=== PATIENT | male | born 1940 | race Caucasian/White ===

== ENCOUNTER 2025-01-08 12:57 | Emergency (ER) | payer OTHER, SELFPAY ==
[2025-01-08 13:00] VITALS: BP 103/55
--- NOTE | 2025-01-08 13:33 | ED.GENMED ---
History of Present Illness
<Geovany Munguia MD, Resident - Last Filed: 01/08/25 15:43>
General
Chief Complaint: Male Genito-Urinary Symptoms
Source: patient
Exam Limitations: dementia
Time Seen by Provider: 01/08/25 13:02
History of Present Illness
History of Present Illness:
Patient is unable to tell us why he is here, so need to call [facility]. After calling [facility] they stated that he had a new 20 [place] Swift placed yesterday morning, Patient has been on Macrobid from onwards for UTI,
Swift was draining adequately, then today the nurse noticed that the penis and scrotum was edematous and wanted to make sure that it is a nonemergency so they admitted him to [place] emergency department . he is not complaining of any headache,
fever, chills, nausea, abdominal pain, vomiting, suprapubic pain, no pain/discomfort in the genital area. On visual inspection his Swift is draining adequately.
Past History
<Geovany Munguia MD, Resident - Last Filed: 01/08/25 15:43>
Past History
ED Past Medical History: None
Social History
Tobacco: Non-smoker
Alcohol: None
Drug: None
Personal: Single
Living: alone
Review of Systems
<Geovany Munguia MD, Resident - Last Filed: 01/08/25 15:43>
Review of Systems
All Other Systems: ROS reviewed and negative except as documented in HPI and ROS
Constitutional: Denies fatigue, sleep disturbance or night sweats
Respiratory: Denies cough
Cardiac: Denies chest pain, palpitations or syncope
Skin: Reports no symptoms
Phy Exam
<Geovany Munguia MD, Resident - Last Filed: 01/08/25 15:43>
General Physical Exam
General Presentation: mild distress
General Habitus: elderly
General Mental: alert
Cardiovascular Exam
Cardiovascular Exam: regular rate/rhythm, no edema, no gallop and normal peripheral pulses
Pulmonary Exam
Pulmonary Exam: lungs clear and no respiratory distress
Gastrointestinal Exam
Gastrointestinal Exam: normal bowel sounds, non tender, soft and non distended
Genitourinary Exam Male
Exam Male: other (there is diffuse edema of scrotum and penis, erythematous, Non - tender, no suprapubic fullness)
Neurological Exam
Neurological Exam: alert
Musculoskeletal Exam
Musculoskeletal Exam: full ROM and no edema
Skin Exam
Skin Exam: normal color and warm/dry
Psychiatric Exam
Psychiatric Exam: normal mood/affect
Course
<Geovany Munguia MD, Resident - Last Filed: 01/08/25 15:43>
Orders/Labs/Results
Orders:
Orders
01/08/25 13:33
Swift Placement- Treatment ONCE
Reason for insertion: Chronic Swift on Admit
Vital Signs
Initial and Last Documented VS:
Initial Vital Signs
Temp Pulse
98.6 F 73
01/08/25 12:59 01/08/25 12:59
Last Documented Vital Signs
Temp Pulse
98.6 F 73
01/08/25 12:59 01/08/25 12:59
<Andrew Bergman MD - Last Filed: 01/08/25 14:35>
Orders/Labs/Results
Orders:
Orders
01/08/25 13:33
Swift Placement- Treatment ONCE
Reason for insertion: Chronic Swift on Admit
Vital Signs
Initial and Last Documented VS:
Initial Vital Signs
Temp Pulse
98.6 F 73
01/08/25 12:59 01/08/25 12:59
Last Documented Vital Signs
Temp Pulse
98.6 F 73
01/08/25 12:59 01/08/25 12:59
<Geovany Munguia MD, Resident - Last Filed: 01/08/25 15:43>
MDM/Problems Addressed
Differential Diagnosis Includes:
Edema following insertion Swift catheter, Radames gangrene, balanitis, trauma, epididymitis
MDM/Problems Addressed:
84 y/o male who presents with edema of the scrotum and testicle following placement of a Swift. Presents from [facility].
- bladder scan shows 42 ml
- Will discharge patient back to [facility] with instructions on proper swift catheter placement. There is no tenderness to palpation, suprapubic fullness, infection, fever, chills.
<Geovany Munguia MD, Resident - Last Filed: 01/08/25 15:43>
*Pulse Oximetry
Patient hypoxic: no
*Critical Care Note
Total Time (30-74mins, 75-104mins- exclusive of procedures): Not Applicable
ED Attending Note
<Geovany Munguia MD, Resident - Last Filed: 01/08/25 15:43>
-
Portions of this chart may have been created with voice recognition software.� Occasional wrong word or��sound alike� substitutions may have occurred due to the inherent limitations of voice recognition software.
<Andrew Bergman MD - Last Filed: 01/08/25 14:35>
ED Attending Note
Patient seen and examined by attending physician: Yes
I performed a history and physical exam of patient and discussed management with resident, I reviewed resident's note and agree with documented findings and plan of care.: Yes
ED Attending Note:
Patient had his Swift catheter replaced yesterday. Apparently no complications. They noted swelling to the penis and scrotum today were concerned and wanted it evaluated. Patient denies acute complaints. No fever chills abdominal pain urethral
burning etc.
On exam patient is elderly and frail. Nontoxic. Fully alert interacting appropriately. Abdomen is soft and nontender. No suprapubic fullness. Swift catheter appears well and is draining well. There is general scrotal and penile edema. No
foreign body. No hair or constriction. No erythema drainage.
Penile and scrotal edema. Medically stable. No indication for radiologic testing or for further medical treatment. Outpatient observation.
Discharge Plan
Departure
Patient Disposition: Assisted/SNF
Date of Disposition: 01/08/25
Time of Disposition: 14:19
Patient with high blood pressure during this ER visit?: No
Condition: Fair
Discharge Problem:
Edema of scrotum, Edema of penis
Instructions: How to Care for Your Swift Catheter, Male, Urinary catheter placement
Referrals:
Jass Goodman MD [Family Provider] - Follow up in 5-7 days
Activity Restrictions/Additional Instructions:
Thank you for visiting the Emergency Department at [facility].
1. Please schedule a follow up appointment as directed. Call first thing tomorrow morning to make an appointment.
2. If indicated, please take your medications as instructed and indicated on discharge paperwork.
3. If any of your symptoms do not improve, or persist, or become more severe within 6-12 hours, please return to the emergency department for further care.
4. Please return to the emergency department if you develop a headache, neck pain/stiffness, fever greater than 100.4F, chest pain, shortness of breath, persistent nausea, vomiting, slurred speech, difficulty walking, numbness/tingling, weakness,
signs of infection or any other symptoms that are worrisome to you.
5. Please return is there in increased penile swelling, edema, fever, chills, suprapubic tenderness, nausea/vomiting.
Please call [phone] if you have any questions.
Interventions
Interventions:
*Risk Screen - Suicide Last Done: 01/08/25 12:59
*General Assessment Last Done: 01/08/25 12:59
*Neglect/Abuse Screening Last Done: 01/08/25 12:59
*ED COVID-19 Vaccine History Last Done: 01/08/25 12:59
*ED Influenza Vaccine History Last Done: 01/08/25 12:59
ED-Male Genitourinary Assessment Last Done: 01/08/25 15:21
Discharge Date and Time
Print Language: TUVALUAN
[2025-01-08 14:00] VITALS: BP 109/43
[2025-01-08 15:00] VITALS: BP 114/45
== END 2025-01-08 18:26 ==
LOC: EMR 12:57
PROVIDERS: EMERGENCY PHYSICIAN Emergency Medicine; FAMILY PHYSICIAN Internal Medicine
DX: N48.89 Other specified disorders of penis (principal); N50.89 Other specified disorders of the male genital organs; F03.90 Unspecified dementia, unspecified severity, without behavioral disturbance, psychotic disturbance, mood disturbance, and anxiety; Z96.0 Presence of urogenital implants
CPT/HCPCS: 99283

== ENCOUNTER 2025-01-09 07:44 | Emergency (ER) | payer OTHER, SELFPAY ==
[2025-01-09] VITALS (7 sets, daily range): BP systolic 110–137; BP diastolic 51–81; BMI 23.4
--- NOTE | 2025-01-09 10:13 | PTCARENOTE ---
Per Chrissie CHAUDHARY at [facility] ([id number]), pt arrived to them w/ chronic Gillette. Hx of bladder CA and obstructive uropathy. Gillette changed 01/07 d/t drainage issues. Gillette has been draining fine but sent back here today d/t increased edema of
penis and scrotum.
--- NOTE | 2025-01-09 10:41 | ED.GENMED ---
History of Present Illness
General
Chief Complaint: Male Genito-Urinary Symptoms
Source: patient, ambulance crew and assisted
Exam Limitations: none
Time Seen by Provider: 01/09/25 07:48
Nursing documentation reviewed up to this point in time: agreed with
History of Present Illness
History of Present Illness:
Patient with history of dysphagia and chronic indwelling Swift catheter, presents to ED for evaluation secondary to worsening penile and scrotal swelling, with intermittent blockage of Swift catheter, which has required Switf catheter exchange.
Patient was seen in ED for similar complaint yesterday and was discharged back to assisted with recommendation to follow-up with urology as an outpatient. However, assisted return patient to ED requesting urgent urology evaluation,
secondary to worsening swelling since being discharged. Patient otherwise upon arrival to ED, has no complaints.
Past History
Past History
ED Past Medical History: None
Social History
Tobacco: Non-smoker
Alcohol: None
Drug: None
Personal: Single
Living: alone
Review of Systems
Review of Systems
Allergies reviewed?: Yes
All Other Systems: ROS reviewed and negative except as documented in HPI and ROS
Constitutional: Reports no symptoms; Denies fever
ABD/GI: Reports no symptoms; Denies abdominal pain or vomiting
: Reports other (penile/scrotal swelling)
Musculoskeletal: Reports no symptoms
Skin: Reports no symptoms
Neurological: Reports no symptoms
Phy Exam
Physical Exam
Physical Exam:
Physical Exam
General: no apparent distress, not acutely ill. afebrile
Head: nc/at. eomi
Neck: supple. normal range of motion
Abdomen: normal bowel sounds. not tender.
: swift catheter in place, with associated penile/scrotal edema, without tenderness
Neuro: alert and oriented x 3. no focal neurological deficits
Skin: no rash
Psychiatric: well kept. interactive and cooperative
Extremities: no edema. no calf tenderness
Course
Orders/Labs/Results
Orders:
Orders
01/09/25 07:59
US Scrotum Urgent
Comment:
Reason For Exam: penile/scrotal swelling
01/09/25 11:22
Urinalysis Reflex To Culture Urgent
Date Specimen was Collected: 01/09/25
Time Specimen was Collected: 11:14
Urine Microscopic Reflex Cult Urgent
Urine Culture Urgent
SUSANNA Source: U
Specimen Description:
Date Specimen was Collected: 01/09/25
Time Specimen was Collected: 11:14
Abnormal Lab Results
01/09/25
11:22
Urine Ketones 2+ A
(Negative)
Ur Occult Blood Reflex 4+ A
(Negative)
Leukocyte Esterase Rfl 3+ A
(Negative)
Urine RBC >100 A /HPF
(0-2)
Urine WBC (Reflex) 40-50 A /HPF
(0-5)
Urine Bacteria (Reflex) Few A
(Negative)
Urine Albumin (Reflex) 3+ A
(Neg - Trace)
Vital Signs
Initial and Last Documented VS:
Initial Vital Signs
Temp Pulse Resp BP Pulse Ox
98 F 77 16 110/65 95
01/09/25 07:55 01/09/25 07:55 01/09/25 07:55 01/09/25 07:55 01/09/25 07:55
Last Documented Vital Signs
Temp Pulse Resp BP Pulse Ox
98.6 F 77 19 131/81 97
01/09/25 10:00 01/09/25 15:00 01/09/25 15:00 01/09/25 14:00 01/09/25 11:00
MDM/Problems Addressed
MDM/Problems Addressed:
Ultrasound report reviewed and discussed with on-call urology, Dr. Nagy. In light of patient's presenting symptoms, recommends exchanging his Swift catheter to nonlatex Swift catheter, along with outpatient urology follow-up, preferably with
urologist he has seen in the past with history of bladder cancer.
*Pulse Oximetry
SaO2: 95
Oxygen Mode of Delivery: Room air
Patient hypoxic: no
*Critical Care Note
Total Time (30-74mins, 75-104mins- exclusive of procedures): Not Applicable
ED Attending Note
-
Portions of this chart may have been created with voice recognition software.� Occasional wrong word or��sound alike� substitutions may have occurred due to the inherent limitations of voice recognition software.
Discharge Plan
Departure
Patient Disposition: Retirement/SNF
Date of Disposition: 01/09/25
Time of Disposition: 13:51
Discharge Problem:
Edema of scrotum
Instructions: Hydrocele, How to Care for Your Swift Catheter, Male
Prescriptions:
No Action
acetaminophen [Tylenol] 325 mg Tablet
650 mg PO Q6HPRN PRN (Reason: mild pain)
aspirin 325 mg Tablet
325 mg PO DAILY
phenytoin sodium extended 100 mg Capsule
300 mg PO DAILY
amlodipine [Norvasc] 5 mg Tablet
5 mg PO DAILY
magnesium hydroxide [Milk of Magnesia] 400 mg/5 mL Suspension
2,400 mg PO DAILYPRN PRN (Reason: if no bm by 3rd day)
tamsulosin [Flomax] 0.4 mg Capsule
0.4 mg PO HS
levothyroxine [Synthroid] 50 mcg Tablet
50 mcg PO DAILY
bisacodyl [Dulcolax (bisacodyl)] 10 mg Suppository
10 mg MD DAILYPRN PRN (Reason: if no bm aftr mom)
ferrous sulfate 325 mg (65 mg iron) Tablet
325 mg PO DAILY
nitrofurantoin macrocrystal 100 mg Capsule
100 mg PO BID
Rx Instructions:
for 7 days until 01/12/25
folic acid 1 mg Tablet
1 mg PO DAILY
Referrals:
Guillaume Nagy MD [Active, Urology]
Jass Goodman MD [Family Provider]
Activity Restrictions/Additional Instructions:
As discussed, please follow-up with referred urologist for further evaluation and treatment.
Interventions
Interventions:
*Risk Screen - Suicide Last Done: 01/09/25 07:55
*General Assessment Last Done: 01/09/25 07:55
*Neglect/Abuse Screening Last Done: 01/09/25 07:55
*ED- Fall Risk Assessment Last Done: 01/09/25 19:22
*ED COVID-19 Vaccine History Last Done: 01/09/25 19:22
*ED Influenza Vaccine History Last Done: 01/09/25 19:22
*Nursing Disposition Last Done: 01/09/25 19:28
ED-Male Genitourinary Assessment Last Done: 01/09/25 08:31
Discharge Date and Time
Discharge Date/Time: 01/09/25 19:31
Print Language: WELSH
[2025-01-09 12:15] LABS: Urine Character Clear (Clear)
[2025-01-09 13:09] LABS: Urine Red Blood Cell >100 /HPF (0-2)
[2025-01-09 13:11] LABS: Urine White Cell 40-50 /HPF (0-5)
[2025-01-09 13:14] LABS: Urine Squamous Cell 0-2 /LPF (Few)
== END 2025-01-09 19:31 ==
LOC: EMR 07:44
PROVIDERS: EMERGENCY PHYSICIAN Emergency Medicine; FAMILY PHYSICIAN Internal Medicine
DX: N50.89 Other specified disorders of the male genital organs (principal); Z85.51 Personal history of malignant neoplasm of bladder; Z96.0 Presence of urogenital implants
CPT/HCPCS: 99284; 76870; 81003; 81015; 87077; 87086; 93976

== ENCOUNTER 2025-01-11 14:52 | Inpatient (IN) | payer OTHER, SELFPAY ==
[2025-01-11] VITALS (21 sets, daily range): BP systolic 84–138; BP diastolic 48–70; BMI 24.1; BMI 23.6
--- NOTE | 2025-01-11 09:14 | ED.GENMED ---
History of Present Illness
General
Chief Complaint: Male Genito-Urinary Symptoms
Source: patient and ambulance crew
Exam Limitations: none
Time Seen by Provider: 01/11/25 09:11
Nursing documentation reviewed up to this point in time: agreed with
History of Present Illness
History of Present Illness:
Note:
CHIEF COMPLAINT(S)
Wound changes and scrotal swelling.
HISTORY OF PRESENT ILLNESS
An 84-year-old male presented with changes in a wound and scrotal swelling. The patient had previously been seen three days ago, and again the following day, with concerns initially noted for swelling and potential cellulitis, characterized by
redness in the area. Since the initial visit, there was no reported pain associated with the swelling.
PAST MEDICAL AND SURGICAL HISTORY
The patient has a history of kidney failure, hypertension, hypothyroidism, epilepsy, and hyperlipidemia. 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
CHRONIC MEDICAL CONDITIONS SIGNIFICANTLY AFFECTING CARE
- Hypertension
- Hypothyroidism
- Epilepsy
- Hyperlipidemia
- Kidney failure
MEDICATIONS
- Levothyroxine
- Tamsulosin
- Nitrofurantoin
- Aspirin
- Amlodipine
ALLERGIES
The patient reports no known allergies.
PHYSICAL EXAM
General: Alert, no acute distress.
Skin: Warm, dry.
Head: Normocephalic, atraumatic.
Neck: Supple, trachea midline.
Eye, Ears, Nose, Mouth, and Throat: Oral mucosa moist.
Cardiovascular: Normal peripheral perfusion, no edema.
Respiratory: Respirations are non-labored.
Gastrointestinal: Abdomen nondistended.
: gangrenous scrotum, groin erythema L>R
Back: Normal range of motion, normal alignment.
Musculoskeletal: Normal range of motion, normal strength.
Neurological: Alert and oriented to person, place, time, and situation, no focal neurological deficit observed.
Psychiatric: Cooperative, appropriate mood & affect.
PROBLEM LIST
- Scrotal swelling
- History of cellulitis in the affected area
- Hypertension
- Hypothyroidism
- Epilepsy
- Hyperlipidemia
- Kidney failure
DIFFERENTIAL DIAGNOSIS
The Differential Diagnosis includes, in no particular order and is not limited to:
- Cellulitis
- Scrotal edema
- Epididymitis
- Testicular torsion
- Inguinal hernia
- Hydrocele
- Varicocele
- Testicular tumor
- Lymphoceles
- Fourniers gangrene
EKG
My independent EKG interpretation is:
- Rhythm: Atrial fibrillation with a rapid ventricular response
- Heart rate: 125 bpm
- [place]: Left axis deviation
- Abnormalities: Presence of premature ventricular contractions (PVCs)
- No signs of ischemia
Disposition:
SUMMARY OF ENCOUNTER
An 84-year-old male presented with scrotal swelling and changes in a previous wound. 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 Immediate intervention was undertaken, including administration of intravenous fluids and antibiotics
(piperacillin-tazobactam, vancomycin, and clindamycin). Dr. Sarmiento, the urologist, escorted the patient to the operating room for surgical management.
DISPOSITION
Admit to operating room.
ASSESSMENT
The patient is diagnosed with Fourniers gangrene, as indicated by the severe scrotal swelling and clinical presentation consistent with the condition.
EMERGENCY TREATMENTS ADMINISTERED
Intravenous fluids, piperacillin-tazobactam, vancomycin, and clindamycin were administered.
MANAGEMENT OF THE PATIENTS CARE WAS DISCUSSED WITH
Dr. Sarmiento, urologist.
REASSESSMENT
Patients vital signs remained stable throughout the course in the emergency department.
INDEPENDENT REVIEW OF LABS AND INTERPRETATION OF TESTS
My independent EKG interpretation is an atrial fibrillation with a rapid ventricular response, heart rate of 125 bpm, left axis deviation, and the presence of premature ventricular contractions. No signs of ischemia are present.
MEDICAL DECISION MAKING
-Complexity of Data Reviewed: Chronic conditions affecting care include hypertension, hypothyroidism, epilepsy, hyperlipidemia, and kidney failure. Differential diagnoses considered were cellulitis, scrotal edema, epididymitis, testicular torsion,
inguinal hernia, hydrocele, varicocele, testicular tumor, lymphoceles, and Fourniers gangrene.
-Data:
Category 1
Non-emergency department records reviewed. The patients previous medical and surgical history was considered.
Category 2
My independent interpretation of EKG as stated.
Category 3
Discussion of management with Dr. March, urologist.
-Risk: Given the severe nature of Fourniers gangrene, prompt surgical intervention was necessary to address the risk of systemic complications.
DIAGNOSIS
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
Past History
Past History
ED Past Medical History: None
Social History
Tobacco: Non-smoker
Alcohol: None
Drug: None
Personal: Single
Living: alone
Phy Exam
Physical Exam
Physical Exam:
.
Course
Orders/Labs/Results
Orders:
Orders
01/11/25 09:20
IV Insert/Care/Rem.- Treatment PRN
01/11/25 09:42
Blood Culture Q30M
SUSANNA Source: Blood/Venous
Specimen Description:
01/11/25 09:43
Alcohol Urgent
Complete Blood Count/With Diff Urgent
Comprehensive Metabolic Panel Urgent
Lactic Acid Q4H
Comment: CANCEL 2nd LACTIC ACID IF 1st LACTIC ACID IS LESS THAN 2
01/11/25 09:45
Blood Culture Q30M
SUSANNA Source: Blood/Venous
Specimen Description:
01/11/25 09:54
Piperacillin/Tazo 4.5 Gram [Zosyn] 4.5 gram in 100 ml IV NOW
01/11/25 09:55
Urinalysis Reflex To Culture Urgent
Date Specimen was Collected: 01/11/25
Time Specimen was Collected: :54
Urine Microscopic Reflex Cult Urgent
Urine Culture Urgent
SUSANNA Source: U
Specimen Description:
Date Specimen was Collected: 01/11/25
Time Specimen was Collected: :54
01/11/25 10:07
CT Pelvis W/wo Iv Contrast Urgent
Comment: with AND without IV contrast
Reason For Exam: scrotal cellulitis, necrosis, concern for Radames
01/11/25 10:15
Clindamycin 900 mg/50 ml [Cleocin] 900 mg in 50 ml IV NOW
01/11/25 10:16
Vancomycin [Vancocin] 2,000 mg 0.9% Sodium Chloride 500 ml [Nss] 500 ml IV NOW
01/11/25 11:25
Lactated Ringers [Lr] 1,000 ml IV BOLUS
01/11/25 12:09
Admit/Transfer Patient As Directed
Co-Sign Provider:
Level of Care: Inpatient admission
Assign to:: IMU- Intermediate Care
Physician / Group: hospitalists
Diagnosis: Radames's gangrene
Reason for Hospitalization: Radames's gangrene
Expected length of stay greater than two midnights?: Yes
ELOS- Estimated Length of Stay in days: 3
I certify the patient meets the requirements for IP care: Yes
01/11/25 12:10
PRN Pain Medication Management As Directed
May give lesser potent ordered pain med per pt: Yes
preference::
Protocol:: Medication orders for pain may be administered in a
manner that supports deferring to patient preference
when the pt is:
- Requesting an ordered lesser potent pain medication.
Least to most potent pain medications are defined
as: acetaminophen < NSAID < tramadol < opioids
(morphine, oxycodone, hydromorphone).
- Requesting a lesser dose of the same medication IF
ORDERED.
- Requesting a less intrusive route of administration
if both routes are prescribed by the provider (PO <
IV).
01/11/25 12:29
Fentanyl Citrate/Pf [Sublimaze] 25 mcg IV [id number] PRN
Fentanyl Citrate/Pf [Sublimaze] 25 mcg IV [id number] PRN
Fentanyl Citrate/Pf [Sublimaze] 50 mcg IV PACU-Q5MPRN PRN
Ondansetron Injectable [Zofran] 4 mg IV PACU-ONCEPRN PRN
Prochlorperazine [Compazine] 5 mg IV PACU-ONCEPRN PRN
Notify MD As Directed
Notify physician if: for SDS patients with known or suspected sleep obstructive sleep apnea, monitor in the
PACU.
Notify MD for any apneic/desaturation episodes
O2 Therapy [RESP] Urgent
Titrate/Wean O2 to maintain O2 sat greater than (%): 92
Special Instructions: -Provide supplemental oxygen to achieve O2 sat of 92% or greater.
-After 15 min, may wean O2 and discontinue if patient is able to maintain O2 sat of 92%
or greater during recovery period.
If patient is a discharge home, without oxygen therapy, notify anestheiologist if
unable to maintain O2 SAT of 92% or greater on room air for MD clearance.
01/11/25 12:30
Lactated Ringers [Lr] 2,000 ml IV BOLUS
Normosol (Mult Electrolytes) [Normosol-R/Plasmalyte-A] 1,000 ml IV PER PROTOCOL
01/11/25 12:33
Code Status As Directed
Resuscitation Status: Full Code
01/11/25 12:34
Code Status As Directed
Resuscitation Status: Do not resuscitate
Based on pt advanced directive or healthcare POA form: Yes
01/11/25 12:49
Lidocaine HCl/Pf [Xylocaine-Mpf 1% Vial] 50 mg .ROUTE .STK-MED ONE
Propofol [Diprivan] 20 ml .ROUTE .STK-MED
Rocuronium [place] [Rocuronium] 50 mg .ROUTE .STK-MED ONE
01/11/25 12:50
Dexamethasone Sod Phosphate [Decadron] 20 mg .ROUTE .STK-MED ONE
Ondansetron Injectable [Zofran] 4 mg .ROUTE .STK-MED ONE
01/11/25 12:53
Fentanyl Citrate/Pf [Sublimaze] 100 mcg .ROUTE .STK-MED ONE
01/11/25 12:59
Bupivacaine Mpf 0.25% [Sensorcaine-Mpf 0.25% Vial] 30 ml .ROUTE .STK-MED ONE
Midazolam HCl [Versed] 2 mg .ROUTE .STK-MED ONE
01/11/25 13:02
Add On- LAB Routine
Tests Added?: a1c
01/11/25 13:36
Phenylephrine HCl/0.9% NaCl [Swapnil-Synephrine] 1,000 mcg .ROUTE .STK-MED ONE
01/11/25 14:03
Acetaminophen 1000MG/100Ml [Ofirmev] 1,000 mg in 100 ml .ROUTE .STK-MED
01/11/25 14:04
Anaerobic Culture Urgent
SUSANNA Source: Scrotum
Specimen Description:
Date Specimen was Collected: 01/11/25
Time Specimen was Collected: 14:04
Comment: PENILE ABSCESS
Wound/Abscess/Other Culture Urgent
SUSANNA Source: Scrotum
Specimen Description:
Date Specimen was Collected: 01/11/25
Time Specimen was Collected: 14:04
Comment: PENILE ABSCESS
01/11/25 14:38
Sugammadex Sodium [[place]] 200 mg .ROUTE .STK-MED ONE
01/11/25 15:07
Lactated Ringers [Lr] 1,000 ml IV 100 mls/hr
Pharmacy Request to Place See Dose Instructions IV DIRECTED
Piperacillin/Tazo 3.375 Gram [Zosyn] 3.375 gram in 50 ml IV Q6H
VANCOMYCIN Pharmacy to Dose [VANCOCIN Pharmacy to Dose] 1 each Pharmacy To Prepare [Call Pharmacy To Prepare] 0 ml IV PER PROTOCOL
01/11/25 15:07
INFECTIOUS DISEASE CONSULT Routine
Consulting Provider: Liz Bermudez
Was physician already notified: Yes
Reason for consult: Radames's gangrene
UROLOGY CONSULT Routine
Consulting Provider: Alberto March
Was physician already notified: Yes
Comment: Radmaes's gangrene
Sequential Compression Device [Pneumatic Compression Sleeves] As Directed
Type: Knee high
DX Deep Vein Thrombosis Video Routine
01/11/25 19:00
Clindamycin 900 mg/50 ml [Cleocin] 900 mg in 50 ml IV Q8H
01/11/25 22:00
Tamsulosin [Flomax] 0.4 mg PO HS
01/12/25 06:00
Levothyroxine [Synthroid] 50 mcg PO DAILY@0600
01/12/25 08:00
Amlodipine [Norvasc] 5 mg PO DAILY
Phenytoin [Dilantin] 300 mg PO DAILY
Abnormal Lab Results
01/11/25 01/11/25
09:43 09:55
WBC 28.2 H 10^3/uL
(4.8-10.8)
RBC 3.18 L 10^6/uL
(4.70-6.10)
Hgb 10.0 L g/dL
(13.0-18.0)
Hct 29.1 L %
(39.0-52.0)
MCH 31.4 H pg
(27.0-31.0)
RDW 14.9 H %
(11.5-14.5)
Plt Count 403 H 10^3/uL
(130-400)
MPV 10.5 H fL
(7.4-10.4)
Abs Immat Gran (auto) 0.5 H 10^3/uL
(0-0.05)
Absolute Neuts (auto) 25.7 H 10^3/uL
(1.4-6.5)
Absolute Monos (auto) 0.8 H 10^3/uL
(0.1-0.6)
Immature Gran % 1.7 H %
(0-0.5)
Neutrophils % 91.3 H %
(42.2-75.2)
Lymphocytes % 4.1 L %
(20.5-51.1)
BUN 64 H mg/dl
(9-20)
Glucose 182 H mg/dl
(70-99)
Lactic Acid 4.4 H* mmol/L
(0.7-2.0)
Total Bilirubin 1.6 H mg/dl
(0.2-1.3)
AST 204 H U/L
(17-59)
ALT 51 H U/L
(0-50)
Alkaline Phosphatase 262 H U/L
(38-126)
Albumin 3.3 L g/dl
(3.5-5.0)
Ur Occult Blood Reflex 4+ A
(Negative)
Leukocyte Esterase Rfl 3+ A
(Negative)
Urine RBC 3-6 A /HPF
(0-2)
Urine WBC (Reflex) >100 A /HPF
(0-5)
Urine Bacteria (Reflex) Moderate A
(Negative)
Urine Albumin (Reflex) 2+ A
(Neg - Trace)
01/11/25 09:43
01/11/25 09:43
Vital Signs
Initial and Last Documented VS:
Initial Vital Signs
Temp Pulse Resp BP Pulse Ox
98.3 F 74 16 127/67 95
01/11/25 09:10 01/11/25 09:10 01/11/25 09:10 01/11/25 09:10 01/11/25 09:10
Last Documented Vital Signs
Temp Pulse Resp BP Pulse Ox
97.5 F 64 17 119/49 100
01/11/25 15:45 01/11/25 16:00 01/11/25 16:00 01/11/25 16:00 01/11/25 16:00
*Pulse Oximetry
SaO2: 99
Oxygen Mode of Delivery: Room air
Patient hypoxic: no
*Critical Care Note
Total Time (30-74mins, 75-104mins- exclusive of procedures): 35
comment:
Critical care statement: A total of 35 minutes of critical care time was provided for this patient. This includes management of unstable vital signs, evaluation of the patient at bedside, reviewing the patient's pertinent medical records, discussion
with consultants, review of old EKGs and review of pertinent medical records. This time with separate from time utilized to perform the aforementioned documented procedures
ED Attending Note
-
Portions of this chart may have been created with voice recognition software.� Occasional wrong word or��sound alike� substitutions may have occurred due to the inherent limitations of voice recognition software.
Discharge Plan
Departure
Patient Disposition: OR
Date of Disposition: 01/11/25
Time of Disposition: 11:22
Admit to: OR
Presentation/result/management discussed w/ accepting MD/DO: Hospitalist
Patient with high blood pressure during this ER visit?: No
Condition: Fair
Discharge Problem:
Radames gangrene of scrotum
Interventions
Interventions:
*Risk Screen - Suicide Last Done: 01/11/25 09:10
*General Assessment Last Done: 01/11/25 09:10
*Neglect/Abuse Screening Last Done: 01/11/25 09:10
*ED- Fall Risk Assessment Last Done: 01/11/25 09:10
*Nursing Disposition Last Done: 01/11/25 12:20
ED-Male Genitourinary Assessment Last Done: 01/11/25 10:15
Discharge Date and Time
Discharge Date/Time: 01/11/25 12:24
[2025-01-11 10:05] LABS: ALT (SGPT) 51 U/L (0-50); AST (SGOT) 204 U/L (17-59); Albumin 3.3 g/dl (3.5-5.0); Alkaline Phosphatase 262 U/L (38-126); Blood Urea Nitrogen 64 mg/dl (9-20); Calcium 8.7 mg/dl (8.4-10.2); Carbon Dioxide 24 mmol/L (22-30); Chloride 106 mmol/L (98-107); Estimated Creatinine Clearance 43 ml/min; Glucose 182 mg/dl (70-99); Potassium 4.1 mmol/L (3.5-5.1); Sodium 142 mmol/L (135-145); Total Protein 7.7 g/dl (6.3-8.2); eGFR 58.89
[2025-01-11] MEDS: ZOSYN 100 IV (10:12)
[2025-01-11 10:16] LABS: Hematocrit 29.1 % (39.0-52.0); Hemoglobin 10.0 g/dL (13.0-18.0); Mean Corp Hgb Conc. 34.4 g/dL (33.0-37.0); Mean Corpuscular Volume 91.5 fL (80.0-94.0); Platelet Count 403 10^3/uL (130-400); Red Cell Dist. Width 14.9 % (11.5-14.5)
[2025-01-11] MEDS: CLEOCIN 50 IV ×2 (10:35→18:30)
[2025-01-11] MEDS: VANCOCIN 540 MG IV (10:35)
[2025-01-11 10:37] LABS: Urine Character Clear (Clear)
[2025-01-11 10:50] LABS: Urine Squamous Cell 0-2 /LPF (Few); Urine White Cell >100 /HPF (0-5)
[2025-01-11] MEDS: LR 1000 IV ×2 (11:32→18:30)
[2025-01-11 11:54] LABS: Nucleated Red Blood Cells % 0 % (-)
--- NOTE | 2025-01-11 12:12 | W.PN.UPDATE ---
Update Note
Progress Note Update
I personally performed a history and physical exam of the patient and discussed management with the resident. I reviewed the resident's note and agree with the documented findings and plan of care HPI/CC.
History is unobtainable from the patient because, when he is asked direct questions, he refuses to answer them. Also would not answer questions from Dr. Reynoso as per my discussion with Dr. Reynoso. Sent from [place] for necrosis of penis.
116/67, 81, 16, 98.3 F, 97% RA
Gen: NAD, Awake and alert
Eyes: EOMI, PERRLA, no scleral icterus.
Neck: supple.
CV: RRR, +S1/S2, no m/r/g.
Resp: CTAB, no rales, wheezes, or rhonchi.
Abd: +BS, soft, NT, ND
Skin/: necrosis on the ventral aspect of the penis, L groin soft tissue edema and erythema with TTP
Neuro: CN 2-12 intact, non-focal.
Psych: Normal mood and affect.
Lab Results
01/11/25 01/11/25
09:43 09:55
WBC 28.2 H
RBC 3.18 L
Hgb 10.0 L
Hct 29.1 L
MCV 91.5
MCH 31.4 H
MCHC 34.4
RDW 14.9 H
Plt Count 403 H
MPV 10.5 H
Abs Immat Gran (auto) 0.5 H
Absolute Neuts (auto) 25.7 H
Absolute Lymphs (auto) 1.2
Absolute Monos (auto) 0.8 H
Absolute Eos (auto) 0.0
Absolute Basos (auto) 0.1
CBC Comment
Immature Gran % 1.7 H
Neutrophils % 91.3 H
Lymphocytes % 4.1 L
Monocytes % 2.7
Eosinophils % 0.0
Basophils % 0.2
Nucleated RBC % 0
Sodium 142
Potassium 4.1
Chloride 106
Carbon Dioxide 24
BUN 64 H
Creatinine 1.2
Estimated Creat Clear 43
eGFR 58.89
Glucose 182 H
Lactic Acid 4.4 H*
Calcium 8.7
Total Bilirubin 1.6 H
AST 204 H
ALT 51 H
Alkaline Phosphatase 262 H
Total Protein 7.7
Albumin 3.3 L
Urine Color Yellow
Urine Clarity Clear
Urine pH 5.0
Ur Specific [place] 1.010
Urine Ketones Negative
Ur Occult Blood Reflex 4+ A
Urine Nitrite (Reflex) Negative
Urine Bilirubin Negative
Urine Urobilinogen 1+
Leukocyte Esterase Rfl 3+ A
Urine RBC 3-6 A
Urine WBC (Reflex) >100 A
Ur Squamous Epith Cells 0-2
Urine Bacteria (Reflex) Moderate A
Urine Glucose Negative
Urine Albumin (Reflex) 2+ A
CT Pelvis: Surrounding the penis and extending into the adjacent peritoneum, there is air and fluid density with thickened enhancing rim, suggesting infection and abscess formation. The air density also extends superiorly extending into the left
anterior pelvic wall musculature and adjacent subcutaneous soft tissues. These findings would be suggestive of Radames's gangrene. Filling defect within the left common femoral vein with extension into the left femoral and profunda femoris veins,
very likely representing deep venous thrombosis. As warranted, consideration for further evaluation with lower extremity peripheral venous ultrasound. Large amount of subcutaneous edema, left greater than right. Significant scrotal wall thickening
and edema, especially inferiorly. Small to moderate bilateral hydroceles.
Scrotal U/S: There are moderate bilateral hydroceles and marked swelling of the scrotal wall. The testicles themselves are unremarkable.
Sepsis due to necrotizing fasciitis:
-pt being taken to the OR for debridement emergently
-IV Vanco/Zosyn/clinda
-3L LR to start
-follow BCxs/UCx (pansensitive enterococcus on 01/09 UCx noted)
Other problems:
Seizure d/o: cont Dilantin
Hypothyroidism: cont Levoxyl
Essential HTN: hold Norvasc acutely
--- NOTE | 2025-01-11 12:35 | HPS.HSE ---
Family Physician
-
Family Physician: Jass Goodman
Chief Complaint
-
Swollen penis and scrotum with skin discoloration.
History of Present Illness
Mr. Sanchez is an 84-year-old male with PMHx significant for chronic indwelling [place] catheter (unknown cause), CKD (unknown stage), hypertension, hypothyroidism, epilepsy (unknown type seizure disorder) on phenytoin, hyperlipidemia presents to the
ER after being found to have swollen penis for 2 days and when nursing noticed to have necrotic 1.5 inch tissue on the scrotum in the a.m. today. Patient states that he is not in any pain, does not have any fevers or chills, and reports to being
thirsty.
Patient is awake alert and oriented, upon arrival to the ER the vital signs are stable, and in the ER he was found to have Radames's gangrene and was given IV LR. I was not able to obtain much history further from the patient.
Medical History
Past Medical History
Past Medical History: Reports Other (Kidney failure, hypertension, hypothyroidism, epilepsy, hyperlipidemia.)
Past Surgical History: Reports Other (Not known.)
Social History
Tobacco: Non-smoker
Alcohol: None
Drug: None
Personal: Single
Living: Assisted Living
Employment: Retired
Family History
Family History: Not pertinent
Allergies / Home Medications
Allergies reflects when Allergies were last updated in [facility].
Home Medications with original date entered in [facility]
Allergy/Medication List:
Allergies
Allergy/AdvReac Type Severity Reaction Status Date / Time
No Known Allergies Allergy Verified 01/11/25 09:54
Home Medications
acetaminophen 325 mg tablet (Tylenol) 650 mg PO Q6HPRN PRN mild pain 01/09/25
amlodipine 5 mg tablet (Norvasc) 5 mg PO DAILY 01/09/25
aspirin 325 mg tablet 325 mg PO DAILY 01/09/25
bisacodyl 10 mg rectal suppository (Dulcolax (bisacodyl)) 10 mg NV DAILYPRN PRN if no bm aftr mom 01/09/25
ferrous sulfate 325 mg (65 mg iron) tablet 325 mg PO DAILY 01/09/25
folic acid 1 mg tablet 1 mg PO DAILY 01/09/25
levothyroxine 50 mcg tablet (Synthroid) 50 mcg PO DAILY 01/09/25
magnesium hydroxide 400 mg/5 mL oral suspension (Milk of Magnesia) 2,400 mg PO DAILYPRN PRN if no bm by 3rd day 01/09/25
phenytoin sodium extended 100 mg capsule 300 mg PO DAILY 01/09/25
tamsulosin 0.4 mg capsule (Flomax) 0.4 mg PO HS 01/09/25
diphenhydramine HCl 25 mg capsule (Benadryl) 25 mg PO TID 01/11/25
nitrofurantoin monohydrate/macrocrystals 100 mg capsule (Macrobid) 100 mg PO BID 01/11/25
Review of Systems
-
History Source: Patient
Constitutional: Reports No Symptoms
EENT: Reports No Symptoms
Respiratory: Reports No Symptoms
Cardiac: Reports No Symptoms
Abdomen/GI: Reports No Symptoms
: Reports No Symptoms
Musculoskeletal: Reports No Symptoms
Skin: Reports No Symptoms
Endocrine: Reports No Symptoms
Hematologic/Lymphatic: Reports No Symptoms
Psych: Reports No Symptoms
Physical Exam
Vital Signs
Vital Signs
Temp Pulse Resp BP Pulse Ox
98.3 F 70 16 138/70 97
01/11/25 09:10 01/11/25 12:20 01/11/25 12:20 01/11/25 12:20 01/11/25 12:20
Physical Exam
General: Comfortable and Conversant
HEENT: NormoCephalic, Anicteric and PERRLA
Respiratory: Clear; No Wheezes, Rales, Rhonchi or Crackles
Cardiac: S1/S2 and Regular Rhythm; No Murmur, Rub or Gallop
GI: Soft, Non Tender, Non Distended and Normal Bowel Sounds
Genito-urinary: [place] and Other (Erythematous, edematous scrotum and penis with erythema and edema extending into the left groin area. About 2. 5 x 1 cm necrotic tissue with irregular margins noted on the scrotum, nontender to palpation,
subcutaneous crepitus.)
Musculoskeletal: No Clubbing, No Cyanosis and No Edema
Skin: Ulcers and Lesions
Neuro: AO x 3 and No Motor Deficits
Psych: Calm
Laboratory Results
-
01/11/25 09:43
01/11/25 09:43
Laboratory Results
Lactic Acid 4.4 mmol/L (0.7-2.0) H* 01/11/25 09:43
Total Bilirubin 1.6 mg/dl (0.2-1.3) H 01/11/25 09:43
AST 204 U/L (17-59) H 01/11/25 09:43
ALT 51 U/L (0-50) H 01/11/25:43
Alkaline Phosphatase 262 U/L (38-126) H 01/11/25 09:43
Data Reviewed
-
Ultrasound: Image Personally Visualized and interpreted, Report Reviewed by me and Discussed with Patient
Medical Tests (Nuc Med, Echo, EKG etc): Report Reviewed by me, Discussed with Physician and Discussed with Patient
Lab Data: Labs Reviewed by me, Discussed with Physician and Discussed with Patient
Impression/Plan
-
IMPRESSION: 84-year-old male with PMHx significant for chronic indwelling [place] catheter (unknown cause), CKD (unknown stage), hypertension, hypothyroidism, epilepsy (unknown type seizure disorder) on phenytoin, hyperlipidemia presents to the ER
from long-term facility for evaluation of possible foreign years gangrene.
PLAN:
# Radames's gangrene/necrotizing fasciitis of the scrotum-
Leukocytosis with left shift, no tachycardia, no tachypnea.
Lactate levels pending. Vital signs stable, s/p IV lactated Ringer bolus
Urology consulted, on board, plan for wound debridement.
N.p.o. for now, started on vancomycin, Zosyn and clindamycin.
ID consult placed, admit the patient to IMU.
Continue aggressive hydration, follow debridement cultures
Trend WBC count
# Normocytic anemia-
Likely a confluence of anemia of chronic disease versus microcytic anemia from phenytoin use.
On iron and folic acid supplementation.
Continue to monitor CBC levels.
# Thrombocytosis-
Likely reactive.
# CKD stage IIIa-
eGFR stable at 58.89.
# Elevated blood glucose levels, glucosuria-
Obtain HbA1c in the AM.
# Transaminitis-
Suspect likely secondary to Radames's gangrene.
Unknown baseline, trend AST and ALT.
# Seizure disorder-continue phenytoin
# Essential hypertension-
Continue amlodipine
# Hypothyroidism-
Continue Synthyroid
# DVT prophylaxis-
Sequential compression devices
# CODE STATUS-DNR
(Per SNF records -advance directive, tried reaching out to [facility], and also son, left voicemails with no answer back.) Will clarify later with patient and family as well.
--- NOTE | 2025-01-11 12:48 | CON.ID ---
Consultation
-
Date/Time Consultation Requested: 01/11/25 12:23
Date/Time Consultation Performed: 01/11/25 12:49
Requesting Provider: Dr Groves
Performing Provider: Dr Bermudez
Reason for Consultation: blaise's gangrene
Chief Complaint / Past History
Chief Complaint
necrotic tissue of the scrotum
History of Present Illness
Mr Reed is an 84 year old male without known medical history who presented here from a alf for a black lesion on the penis and scrotum with tracking erythema. History is unobtainable the patient refuses to answer questions - states
that he blames his son for his placement in alf. He does admit to a history of a seizure to me. Otherwise he is not responsive to questions.
Since arrival here he has been afebrile, bp stable, wbc 28.2, hgb 10, plt 403, L shift is noted, co2 24, cr 1.2, lactic acid 4.4,t bili 1.6, ast 204, alt 51, alk [phos 262, pelvis CT scan: consistent with blaise's ' Surrounding the penis and
extending into the adjacent peritoneum, there is air and fluid density with thickened enhancing rim, suggesting infection and abscess formation. The air density also extends superiorly extending into the left anterior pelvic wall musculature and
adjacent subcutaneous soft tissues.' US 'marked swelling of the scrotal wall.' He is on vancomycin, zosyn and clindamycin.
Past History
Additional Past Medical History:
HTN, hypothyroidism, seizure
Additional Past Surgical History:
no known history
Allergy History:
No Known Allergies Allergy (Verified 01/11/25 09:54)
Medications Reviewed: Yes
Social History
Tobacco: Non-Smoker
Alcohol: None
Drug: None
Family History
Family History: Not Pertinent
Review of Systems
Review of Systems
unable to obtain due to the condition of the patient
Vital Signs
Temp Pulse Resp BP Pulse Ox
98.3 F 70 16 138/70 97
01/11/25 09:10 01/11/25 12:20 01/11/25 12:20 01/11/25 12:20 01/11/25 12:20
Physical Exam
Physical Exam
Constitutional: No Acute Distress
Cardiovascular: Regular Rate and S1/S2; Negative Murmur or Rub
Pulmonary: Clear and Symmetric; Negative Wheezes, Rales or Rhonchi
Gastrointestinal: Soft, Non Tender, Non Distended and Normal Bowel Sounds
Genito-Urinary: Other (necrotic area on the penis and scrotum, tracking erythmea to the L groin)
Skin: Warm and Dry; Negative Rash or Jaundice
Lab / Diagnostic Study Results
01/11/25 09:43
01/11/25 09:43
Abs Immat Gran (auto) 0.5 10^3/uL (0-0.05) H 01/11/25 09:43
Absolute Neuts (auto) 25.7 10^3/uL (1.4-6.5) H 01/11/25 09:43
Absolute Lymphs (auto) 1.2 10^3/uL (1.2-3.4) 01/11/25 09:43
Absolute Monos (auto) 0.8 10^3/uL (0.1-0.6) H 01/11/25 09:43
Absolute Basos (auto) 0.1 10^3/uL (0-0.2) 01/11/25 09:43
Immature Gran % 1.7 % (0-0.5) H 01/11/25 09:43
Neutrophils % 91.3 % (42.2-75.2) H 01/11/25 09:43
Lymphocytes % 4.1 % (20.5-51.1) L 01/11/25 09:43
Monocytes % 2.7 % (1.7-9.3) 01/11/25 09:43
Eosinophils % 0.0 % (0-6) 01/11/25 09:43
Basophils % 0.2 % (0-2) 01/11/25 09:43
Lactic Acid 4.4 mmol/L (0.7-2.0) H* 01/11/25 09:43
Ur Squamous Epith Cells 0-2 /LPF (Few) 01/11/25 09:55
Microbiology Results
Micro:
01/11/25 09:42 Blood Culture - Pending
Blood/Venous
01/11/25 09:55 Urine Culture - Pending
Urine
01/11/25 09:45 Blood Culture - Pending
Blood/Venous
Assessment / Plan
Fourniers gangrene
- going emergently to the OR
- start vancomycin, zosyn clindamycin
- follow up OR cultures
- check a1c
- follow clinically
--- NOTE | 2025-01-11 12:51 | CONS.URO ---
Medical History
History of Present Illness
84M admitted with scrotal pain and swelling worsening over the past 1-2 weeks
On prior evals and US there was no evidence of cellulitis and pain per ED reports, though apparent today that there was infection
CT scan showed gas forming infectious process with penile skin necrosis
Past Medical History
Past Medical History: None
Past Surgical History: None
Family History
Family History: Reviewed & Not Pertinent
Allergies/Home Medications
Allergies
Allergy/AdvReac Type Severity Reaction Status Date / Time
No Known Allergies Allergy Verified 01/11/25 09:54
Home Medications
�Medication �Instructions �Recorded �Confirmed �Type
acetaminophen 325 mg tablet 650 mg PO Q6HPRN PRN mild pain 01/09/25 01/11/25 History
(Tylenol)
amlodipine 5 mg tablet (Norvasc) 5 mg PO DAILY 01/09/25 01/11/25 History
aspirin 325 mg tablet 325 mg PO DAILY 01/09/25 01/11/25 History
bisacodyl 10 mg rectal suppository 10 mg VA DAILYPRN PRN if no bm 01/09/25 01/11/25 History
(Dulcolax (bisacodyl)) aftr mom
ferrous sulfate 325 mg (65 mg 325 mg PO DAILY 01/09/25 01/11/25 History
iron) tablet
folic acid 1 mg tablet 1 mg PO DAILY 01/09/25 01/11/25 History
levothyroxine 50 mcg tablet 50 mcg PO DAILY 01/09/25 01/11/25 History
(Synthroid)
magnesium hydroxide 400 mg/5 mL 2,400 mg PO DAILYPRN PRN if no bm 01/09/25 01/11/25 History
oral suspension (Milk of Magnesia) by 3rd day
phenytoin sodium extended 100 mg 300 mg PO DAILY 01/09/25 01/11/25 History
capsule
tamsulosin 0.4 mg capsule (Flomax) 0.4 mg PO HS 01/09/25 01/11/25 History
diphenhydramine HCl 25 mg capsule 25 mg PO TID 01/11/25 01/11/25 History
(Benadryl)
nitrofurantoin 100 mg PO BID 01/11/25 01/11/25 History
monohydrate/macrocrystals 100 mg
capsule (Macrobid)
Physical Exam
Vital Signs
Vital Signs
Temp Pulse Resp BP Pulse Ox
98.3 F 70 16 138/70 97
01/11/25 09:10 01/11/25 12:20 01/11/25 12:20 01/11/25 12:20 01/11/25 12:20
Lab / Testing Results
Laboratory Results
01/11/25 09:43
01/11/25 09:43
Physical Exam
General: Well Developed and No Apparent Distress
Respiratory: Non Labored Respirations
GI: Soft and Non Tender
Genito-urinary: Other (Exquisitely tender and indurated penis and scrotum, LLQ skin with erythema. No drainage)
Neuro: AO x 3
Psych: Calm, Confused and Apparent Dementia
Assessment / Plan
-
Radames's gangrene
- Severe necrotizing infection of penis, scrotum, pubic fat pad, extending to LLQ anterior pelvic wall
- Recommend OR for scrotal exploration, debridement of necrotic tissue, abscess drainage, drain placement
- Unable to reach patient's son after multiple attempts
- Had a long discussion with patient regarding the procedure. Discussed He expressed some desire to avoid surgery and even stated he would prefer to peacefully rather than undergo procedure and its associated . Though he is oriented x3 and
reasoning sometimes sound, he was not able to repeat back multiple aspects of the proposed procedure and forgot entirely after 5 minute transfer upstairs. He was not able to consistently grasp that by delaying or refusing surgery he would likely
. For these reasons he does not have capacity to refuse surgery and will proceed as planned under emergency consent
- Unfortunately overall prognosis for healing and recovery given age and baseline health is poor
- Consult wound care
- Possible return to OR in 24-48 hours for repeat exploration
- ICU/IMU level care
- Continue abx per ID
[2025-01-11] MEDS: SUBLIMAZE 25 MCG IV (15:26)
--- NOTE | 2025-01-11 16:11 | PHA.VAN.IN ---
Assessment
- Assessment
Renal Function: Unknown baseline
Concomitant Antimicrobials: piperacillin/tazobactam, clindamycin
AUC Dosing Plan
- Dosing Variables
Dosing Weight (kg): 72
Dosing CrCl (ml/min): 43
Vd coefficient (L/kg): 0.7
- Empiric Dosing
Initial / Loading Dose: vanc 2000mg
Maintenance Regimen: vanc 1000mg Q24H
Estimated AUC (mcg*h/mL): 505
Estimated Peak (mcg*h/mL): 32.1
Estimated Trough (mcg/ml): 12.8
Estimated Half Life (H): 17.3
- Monitoring
No levels ordered at this time: consider levels at steady state
Pharmacokinetics Vancomycin I
- -
Patient Age: 84
Patient Sex: Male
Vancomycin Day #: 1
Indication: Skin And Soft Tissue
Requesting Provider: Dr. Bermudez
Pertinent Antimicrobial Allergies:
no pertinent antimicrobial allergies
Height / Weight:
Height 5 ft 8 in
Actual Weight 72 kg
- Vital Signs / Lab Results
Temp Pulse Resp BP Pulse Ox
97.5 F 64 17 119/49 100
01/11/25 15:45 01/11/25 16:00 01/11/25 16:00 01/11/25 16:00 01/11/25 16:00
Lab Results - Hematology
01/11/25
09:43
WBC 28.2 H
Lab Results - Chemistry
01/11/25
09:43
BUN 64 H
Creatinine 1.2
Estimated Creat Clear 43
Albumin 3.3 L
01/11/25 01/11/25
09:43 09:43
Lactic Acid 4.4 H* Cancelled
Lab Results - Urine
01/11/25
09:55
Urine Nitrite (Reflex) Negative
Leukocyte Esterase Rfl 3+ A
Urine WBC (Reflex) >100 A
Ur Squamous Epith Cells 0-2
Urine Bacteria (Reflex) Moderate A
[2025-01-11] MEDS: ZOSYN 50 IV ×2 (16:32→22:13)
[2025-01-11] MEDS: LR 2000 IV (16:32)
--- NOTE | 2025-01-11 16:34 | W.IMMPOSTOP ---
Surgical Immed Post Op Note
-
Primary Surgeon: Anca
Assisting Surgeon: -
Pre-op Diagnosis: Radames's gangrene
Post-op Diagnosis: same
Procedure Performed: Scrotal exploration, debridement of Radames's gangrene necrotizing fasciitis, wound packing
Anesthesia Type: gen
Specimen / Cultures: wound cultures
Estimated Blood Loss:
Complications:
Operative Findings:
Large volume purulent drainage
Wound cultures were obtained but were unfortunately mislabeled on their way to the lab and lab refused to run them per OR nurse
Plan for return to OR in AM for repeat wound exploration
[2025-01-11] MEDS: FLOMAX PO (20:39)
[2025-01-11] MEDS: TYLENOL 1000 MG PO (23:18)
[2025-01-12] VITALS (57 sets, daily range): BP systolic 68–125; BP diastolic 36–74; BMI 25.9
[2025-01-12] MEDS: CLEOCIN 50 IV ×3 (02:15→18:39)
[2025-01-12] MEDS: ZOSYN 50 IV ×4 (03:50→20:34)
[2025-01-12 04:26] LABS: Hematocrit 16.3 % (39.0-52.0); Hemoglobin 5.3 g/dL (13.0-18.0); Mean Corp Hgb Conc. 32.5 g/dL (33.0-37.0); Mean Corpuscular Volume 95.9 fL (80.0-94.0); Platelet Count 162 10^3/uL (130-400); Red Cell Dist. Width 16.1 % (11.5-14.5)
[2025-01-12] MEDS: LR 1000 IV ×2 (04:49→16:14)
[2025-01-12 04:53] LABS: Blood Urea Nitrogen 45 mg/dl (9-20); Calcium 5.2 mg/dl (8.4-10.2); Carbon Dioxide 17 mmol/L (22-30); Chloride 86 mmol/L (98-107); Estimated Creatinine Clearance 64 ml/min; Glucose 576 mg/dl (70-99); Potassium 2.9 mmol/L (3.5-5.1); Sodium 131 mmol/L (135-145); eGFR > 60.00
[2025-01-12 05:06] LABS: Glucose - Point of Care 184 mg/dl (70-99)
--- NOTE | 2025-01-12 05:06 | PTCARENOTE ---
patient told me 'he wants to peacefully'. Patient kept telling this RN he wants to and wants this suffering to end. Patient was able to answer his name and birthday, he was not aware of where he was. Provided emotionally support to patient.
Assessment and vital signs as charted. call gupta in reach.
[2025-01-12] MEDS: SYNTHROID 50 MCG PO (05:15)
[2025-01-12] MEDS: VANCOCIN 200 IV (05:15)
[2025-01-12 05:41] LABS: Blood Urea Nitrogen 60 mg/dl (9-20); Calcium 7.5 mg/dl (8.4-10.2); Carbon Dioxide 25 mmol/L (22-30); Chloride 105 mmol/L (98-107); Estimated Creatinine Clearance 47 ml/min; Glucose 148 mg/dl (70-99); Potassium 3.7 mmol/L (3.5-5.1); Sodium 136 mmol/L (135-145); eGFR > 60.00
[2025-01-12 05:45] LABS: Hematocrit 22.7 % (39.0-52.0); Hemoglobin 7.5 g/dL (13.0-18.0)
[2025-01-12 06:02] LABS: Mean Corp Hgb Conc. 32.6 g/dL (33.0-37.0); Mean Corpuscular Volume 93.4 fL (80.0-94.0); Platelet Count 264 10^3/uL (130-400); Red Cell Dist. Width 15.3 % (11.5-14.5)
--- NOTE | 2025-01-12 08:03 | PHA.VAN.FU ---
Vancomycin Assessment / Plan
- Assessment
Renal Function: Stable
WBC's are: Trending Up
In the past 24 hrs, patient has been: Afebrile
Concomitant Antimicrobials: CLINDAMYCIN, ZOSYN
- Dosing Plan
Continue: 1000MG Q24H
- Monitoring Plan
Peak Level: 01/15 @2100
Trough Level: 01/16 @0530
- Follow Up
Pharmacy will continue to follow.
Vancomycin Follow UP
- -
Patient Age: 84
Patient Sex: Male
Vancomycin Day #: 2
Indication: Skin And Soft Tissue
Requesting Provider: Dr. Bermudez
Pertinent Antimicrobial Allergies:
no pertinent antimicrobial allergies
Height / Weight:
Height 5 ft 8 in
Actual Weight 77.1 kg
- Vital Signs / Lab Results
Temp Pulse Resp BP Pulse Ox
97.4 F 61 14 124/46 100
01/11/25 23:00 01/12/25 06:09 01/12/25 06:09 01/12/25 06:09 01/12/25 06:06
Lab Results - Hematology
01/11/25 01/12/25 01/12/25
09:43 04:03 04:51
WBC 28.2 H 19.3 H 29.0 H
Lab Results - Chemistry
01/11/25 01/12/25 01/12/25
09:43 04:03 05:01
BUN 64 H 45 H 60 H
Creatinine 1.2 0.8 1.1
Estimated Creat Clear 43 64 47
Albumin 3.3 L
01/11/25 01/11/25 01/11/25
09:43 09:43 17:40
Lactic Acid 4.4 H* Cancelled 1.7
Lab Results - Urine
01/11/25
09:55
Urine Nitrite (Reflex) Negative
Leukocyte Esterase Rfl 3+ A
Ur Squamous Epith Cells 0-2
--- NOTE | 2025-01-12 10:00 | PTCARENOTE ---
Patient off unit to OR.
--- NOTE | 2025-01-12 11:29 | W.PN.URO.CBU ---
Addendum entered and electronically signed by Alberto March MD 01/12/25 11:47:
Wound cultures from OR yesterday were obtained but due to incorrect labeling the lab would not process them
Repeat wound cultures sent today from purulent drainage in OR
Original Note:
Today's Communication / Plan
-
Maintain dressings/maurilio drain
Continue abx
Possible return to OR in 2-3 days
Assessment / Plan
-
Radames's gangrene
- Severe necrotizing infection of penis, scrotum, pubic fat pad, extending to LLQ anterior pelvic wall
01/11/25: I&D, debridement, drainage of abscess
01/12/25: wound exploration, washout, debridement, dressing change, closure of tunica vaginalis
- Patient consistently expressed desire palliative care and with dignity and refused return to OR today, however he continues to lack capacity to refuse emergency care. Unable to reach patient's son after multiple attempts yesterday and today
- Unfortunately overall prognosis for healing and recovery given age and baseline health is poor and hospice would be an appropriate course
- Consult wound care for eventual management of wound packing changes
- Possible return to OR in 48-72 hours for repeat exploration
- ICU/IMU level care
- Continue abx per ID
Diagnosis
-
Date of Service: January 12, 2025
-
Patient Diagnosis:
Radames's gangrene
Post Op Day:
01/11/25: I&D, debridement, drainage of abscess
01/12/25: wound exploration, washout, debridement, dressing change, closure of tunica vaginalis
Subjective
-
-
Objective
-
Vital Signs
Temp Pulse Resp BP Pulse Ox
97.1 F 55 19 107/45 100
01/12/25 07:17 01/12/25 09:30 01/12/25 09:30 01/12/25 08:00 01/12/25 09:45
Intake and Output
01/11/25 01/12/25 01/13/25
06:59 06:59 06:59
Intake Total 1400 / 1400
Output Total 400 / 400
Balance 1375 / 1375 -400 / -400
Intake:
IV fluids (Total) 1400 / 1400
Normosol 400 / 400
Output:
Urine, [place] 400 / 400
Laboratory Results
01/12/25 04:51
01/12/25 05:01
Physical Exam
-
per OP note
[2025-01-12 12:51] LABS: ALT (SGPT) 32 U/L (0-50); AST (SGOT) 70 U/L (17-59); Albumin 2.3 g/dl (3.5-5.0); Alkaline Phosphatase 163 U/L (38-126); Iron 50 ug/dl (49-181); Total Protein 5.7 g/dl (6.3-8.2)
--- NOTE | 2025-01-12 12:54 | PTCARENOTE ---
Received patient from PACU. Patient awake and confused. Pain better controlled. BP'S soft. Last BP 85/63 (70),62,14. Pulse ox 99% 2L,afebrile. Gillette draining dark yellow urine. Bulky penis dressing intact. To be reinforced as needed. SR on
monitor. Will monitor frequently.
[2025-01-12 13:02] LABS: Total Iron Binding Capacity 180 ug/dl (261-462)
[2025-01-12 13:42] LABS: Glycohemoglobin (HgbA1c) 5.2 % (4.0-5.6)
[2025-01-12 14:00] LABS: Vitamin D, 25-OH*** 14.1 ng/mL (30-80)
[2025-01-12 14:18] LABS: Ferritin 318.0 ng/ml (17.9-464.0)
[2025-01-12] MEDS: TYLENOL 650 MG PO (14:28)
[2025-01-12] MEDS: FLUSH (NSS) 2 FLUSH IV (14:30)
[2025-01-12 14:33] LABS: Vitamin B12 > 1000 pg/ml (239-931)
--- NOTE | 2025-01-12 14:48 | CM ---
Addendum entered by Zaheer Tovar 01/12/25 14:58:
Update: EDI Schwab spoke the son Daniel Aburto who gave history and current situation for his father.
Patient has been a [facility] for some months now due to his home being deemed inhabitable. Months prior, police had to break in to extract his father who needed medical attention then. The son shared that he is not planning to keep his father at
[facility], just 2-3 more months to work out a plan for him to go back to a home if possible, but for now, the [facility] can [facility] to the [facility].
Son Daniel Aburto said that his father is very stubborn, has been unable to walk for about 2 months now, and will ask to not return to [facility], but has too. The patient is being charged privately for staying at [facility] because of his
current assets.
Daniel Aburto is working with an [employer] to obtain Guardianship over his father.
PLAN: Return to [facility] when stable.
Original Note:
Initial Assessment Completed By EDI Schwab.
EDI Schwab Left message for son, but learned that patient is from [facility] as a LTC patient and total care. Patient was at surgery for severe necrotizing infection of penis, scrotum, pubic fat pad, extending to LLQ anterior pelvic wall Updates
sent to the center.
PLAN: Return to [facility] when stable.
--- NOTE | 2025-01-12 15:21 | W.PN.HOSP.TC ---
Today's Communication/Plan
-
IV AB
May need more I and D/ Irrigation
Repeat labs
USS
Assessment / Plan
Assessment / Plan
84-year-old with swelling in the penis and scrotal area with discoloration
01/09/25-USS- There are moderate bilateral hydroceles and marked swelling of the scrotal wall. The testicles themselves are unremarkable.
01/11/25-CT Pelvis-surrounding the penis and extending into the adjacent peritoneum there is an air-fluid density with thickened enhancing rim suggesting infection and abscess formation. Air density also extends superiorly extending into the left
anterior pelvic wall musculature and adjacent subcutaneous soft tissues. This could be suggestive of Radames's gangrene. Filling defect within the left common femoral vein with extension into the left femoral and profunda femoris veins likely
representing DVT. As warranted consideration for further evaluation with lower extremity peripheral ultrasound. Large amount of subcutaneous edema left greater than right. Significant scrotal wall thickening and edema especially inferiorly small
to moderate bilateral hydroceles.
Confused
Cardiovascular system S1-S2 appreciated
Chest clear to auscultation
Abdomen soft and nontender
Incision noted in the perineum/scrotum area packing
# Radames's gangrene
Leukocytosis
Urology debrided the wound. Plan 4 OR again in a few days
Continue antibiotics IV hydration
Continue vancomycin, clindamycin and Zosyn
Follow-up or cultures
Urine cultures from 01/10/2024 with Enterococcus faecalis
ID and urology following
Stop tramadol for pain control given history of seizures, Add Oxycodone.
# Abnormal appearing femoral veins on CT-check ultrasound to rule out DVT
# Anemia-hemoglobin drop noted likely hemodilution-repeat
# Thrombocytosis-likely secondary to infection
# Lactic acidosis resolved
# Hyperglycemia Hemoglobin A1c 5.2
# Transaminitis-likely secondary to tyfohmcge-junxet-tu levels
# Seizures-continue Dilantin
# Hypertension-Hold amlodipine
# Vitamin D deficiency-replace
# Hypothyroidism-Continue levothyroxine
# DVT prophylaxis-SCDs
# CODE STATUS- DNR per pt preference
Spoke to patient's son
Patient was living at home about a month ago but now HE has been in a NH for 1 month . He fell and son went over next day, police had to break in and poor living condition. House was deemed un inhabitable. Son is getting guardianship and getting
his house fixed.Pt was at [facility] for a week after his fall and discharged to [place] [facility]. He has been refusing PT at the rehab.
D/W RN
Time spent over 50 min
Part of this note was created using voice recognition system. Occasional wrong word or��sound alike� substitutions may have inadvertently occurred due to the inherent limitations of voice recognition software. If noted kindly bring it to my
attention for correction.
Anticipated Discharge: > 48 hours
Subjective/Interval History
-
Date of Service: January 12, 2025
Objective Data
-
Labs:
Laboratory Results
01/12/25 01/12/25 01/12/25
04:03 04:51 05:01
WBC 19.3 H 29.0 H
Hgb 5.3 L* D 7.5 L D
Hct 16.3 L* 22.7 L
Plt Count 162 D 264 D
Sodium 131 L D 136
Potassium 2.9 L D 3.7 D
Chloride 86 L 105
Carbon Dioxide 17 L 25
BUN 45 H 60 H
Creatinine 0.8 1.1
Glucose 576 H* 148 H
Calcium 5.2 L* D 7.5 L D
Total Bilirubin 1.0
AST 70 H
ALT 32
Alkaline Phosphatase 163 H
01/12/25
12:17
WBC Pending
Hgb Pending
Hct Pending
Plt Count Pending
Sodium
Potassium
Chloride
Carbon Dioxide
BUN
Creatinine
Glucose
Calcium
Total Bilirubin
AST
ALT
Alkaline Phosphatase
Vital Signs:
Vital Signs
Temp Pulse Resp BP Pulse Ox
97.5 F 78 18 102/57 100
01/12/25 12:15 01/12/25 15:00 01/12/25 15:00 01/12/25 15:00 01/12/25 13:30
I&O
01/11/25 01/12/25 01/13/25
06:59 06:59 06:59
Intake Total 1400 / 1400 940 / 940
Output Total 850 / 850
Balance 1375 / 1375 90 / 90
[2025-01-12] MEDS: DILANTIN 300 MG PO (16:11)
[2025-01-12] MEDS: DRISDOL (VITAMIN D2) 50000 UNITS PO (16:14)
--- NOTE | 2025-01-12 18:45 | PTCARENOTE ---
Patient taking pills whole with water. Poor appetite had some pudding. IV fluids infusing as ordered. BP's soft. SR in the 60's. US of LE's showed bilateral DVT'S, awaiting orders from .
--- NOTE | 2025-01-12 19:18 | W.PN.UPDATE ---
Update Note
Progress Note Update
Bilateral DVT. D/W Urology ok for heparin gtt with bolus. CBC still pending. If low will need to watch the Hb while on AC
D/W RN
[2025-01-12 19:35] LABS: Hematocrit 21.8 % (39.0-52.0); Hemoglobin 7.1 g/dL (13.0-18.0); Mean Corp Hgb Conc. 32.6 g/dL (33.0-37.0); Mean Corpuscular Volume 92.4 fL (80.0-94.0); Platelet Count 228 10^3/uL (130-400); Red Cell Dist. Width 15.5 % (11.5-14.5)
[2025-01-12 19:48] LABS: Nucleated Red Blood Cells % 0 % (-)
[2025-01-12 19:50] LABS: Anisocytosis 1+; Normal RBC Morphology No; Target Cells 3+
[2025-01-12] MEDS: LEVOPHED 250 IV (19:59)
--- NOTE | 2025-01-12 20:07 | VATNOTE ---
CONTACTED PCN TO DETERMINE PT AVAILABLITIY FOR PICC INSERTION. PCN SAID NO CURRENT NEED FOR PICC AND TO PLACE ORDER ON HOLD TO EVALUATE NEED IN AM. OFFERED TO ASSIST WITH ESTABLISHING ADDITIONAL IV ACCESS AND OR PLACE A MIDLINE AND NURSE AGAIN
STATED NO NEED BUT WOULD KEEP ME UPDATED DURING THE NIGHT. VAT TO FOLLOW.
[2025-01-12 20:22] LABS: APTT 30.5 Sec (23.4-35.0)
[2025-01-12] MEDS: FLOMAX 0.4 MG PO (20:48)
--- NOTE | 2025-01-12 20:54 | PTCARENOTE ---
Addendum entered by Thalia Cruz RN 01/13/25 04:22:
As BP and MAP came up, pt mentation improved dramatically. AAOx3. Pt with oriented conversation, able to tell me the name of the president. Still with some forgetfulness, but much improved.
Original Note:
BP 78/43 MAP 54. Levo hung at 19:51. Currently on 6mcg/min. All other VSS. Last BP 104/46, MAP 62. Pt confused at baseline, aaox1. No c/o dizziness, lightheadedness or feeling faint. Repeat hgb 7.1, 1 unit PRBC ordered, no consent in chart. RUG DYER
notified. Son's phone number given to RUG DYER, RUG DYER tried to reach son via phone call, no answer, voicemail left by RUG DYER. Heparin gtt orders placed by hospitalist Tez. Reached out to RUG DYER to confirm heparin gtt orders for patient with nonocclusive DVTs and
hgb 7.1 with a unit of blood ordered. RUG DYER to discuss with Tez. Awaiting confirmation.
[2025-01-12] MEDS: HEPARIN 25000 UNITS/250 ML IV (21:50)
--- NOTE | 2025-01-12 22:02 | PTCARENOTE ---
heparin gtt started at 22:00, initial rate 14ml/hr
[2025-01-13] VITALS (61 sets, daily range): BP systolic 92–139; BP diastolic 37–79
[2025-01-13 00:59] LABS: Hematocrit 23.8 % (39.0-52.0); Hemoglobin 7.8 g/dL (13.0-18.0)
--- NOTE | 2025-01-13 01:05 | PTCARENOTE ---
Pt with several large brown liquid bowel movements. Scrotal dressing changed multiple times. Rectal trumpet placed.
--- NOTE | 2025-01-13 01:08 | W.PN.UPDATE ---
Update Note
Progress Note Update
Rcd TT from RN, forwarded TT from Dr. Reagan, requesting 1 unit PRBC's be transfused. Order placed. Pt has type and screen completed, but no consent in chart. Attempted to call patient's son multiple times with no answer. TT'd Dr. Serrato to make
aware.
Heparin gtt infusing, ordered serial repeat H&Hs, will continue to trend.
~ 1 am Notified that patient has had multiple loose/diarrhea bowel movements. Surgical dressing had to be fully replaced, wound cleansed and new dressing applied. Ordered rectal tube be placed to protect surgical site.
Repeat Hgb 7.8/Hct 23.8, improved from previous 7.1/21.8. Still unable to reach son for consent. Will continue to try to contact son.
Per RN, patient is more alert and is answering questions appropriately. He knows where he is ([facility]) and year (2024). BP improved on Levophed gtt.
--- NOTE | 2025-01-13 01:25 | PTCARENOTE ---
repeat hgb 7.8. SUPERVISOR [employer] aware. Still unable to reach son for consent at this time.
--- NOTE | 2025-01-13 01:29 | PTCARENOTE ---
After repeat H&H sent, this RN noted that there were outstanding blood culture orders from the previous morning. INTERNAL COMBUSTION ENGINE [employer]SEMBLER notified, confirmed that the blood cultures still need to be drawn despite current IV abx regimen. Blood cultures to be drawn with am
labs.
[2025-01-13] MEDS: ZOSYN 50 IV ×3 (03:38→21:39)
[2025-01-13] MEDS: CLEOCIN 50 IV ×3 (03:38→20:15)
[2025-01-13] MEDS: LR IV (03:39)
[2025-01-13] MEDS: LR 1000 IV ×3 (03:39→18:20)
[2025-01-13 04:11] LABS: Hematocrit 21.5 % (39.0-52.0); Hemoglobin 7.2 g/dL (13.0-18.0); Mean Corp Hgb Conc. 33.5 g/dL (33.0-37.0); Mean Corpuscular Volume 91.5 fL (80.0-94.0); Platelet Count 325 10^3/uL (130-400); Red Cell Dist. Width 15.7 % (11.5-14.5)
[2025-01-13 04:22] LABS: APTT 105.8 Sec (23.4-35.0)
[2025-01-13 04:29] LABS: ALT (SGPT) 27 U/L (0-50); AST (SGOT) 38 U/L (17-59); Albumin 2.6 g/dl (3.5-5.0); Alkaline Phosphatase 165 U/L (38-126); Blood Urea Nitrogen 60 mg/dl (9-20); Calcium 7.4 mg/dl (8.4-10.2); Carbon Dioxide 22 mmol/L (22-30); Chloride 105 mmol/L (98-107); Estimated Creatinine Clearance 39 ml/min; Glucose 194 mg/dl (70-99); Potassium 3.6 mmol/L (3.5-5.1); Sodium 134 mmol/L (135-145); Total Protein 6.3 g/dl (6.3-8.2); eGFR 53.50
[2025-01-13] MEDS: SYNTHROID 50 MCG PO (05:26)
[2025-01-13] MEDS: VANCOCIN 200 IV (05:27)
[2025-01-13] MEDS: LEVOPHED 250 IV ×2 (07:47→18:55)
--- NOTE | 2025-01-13 07:49 | PHA.VAN.FU ---
Vancomycin Assessment / Plan
- Assessment
Renal Function: SCR Increasing (1.1-->1.3)
WBC's are: Trending Up
In the past 24 hrs, patient has been: Afebrile
Concomitant Antimicrobials: CLINDAMYCIN, ZOSYN
- Dosing Plan
Adjust Regimen to: PRN BY LEVEL
- Monitoring Plan
Random Level: 10/6 IN AM
- Follow Up
Pharmacy will continue to follow.
Vancomycin Follow UP
- -
Patient Age: 84
Patient Sex: Male
Vancomycin Day #: 3
Indication: Skin And Soft Tissue
Requesting Provider: Dr. Bermudez
Pertinent Antimicrobial Allergies:
no pertinent antimicrobial allergies
Height / Weight:
Height 5 ft 8 in
Actual Weight 77.1 kg
- Vital Signs / Lab Results
Temp Pulse Resp BP Pulse Ox
96.7 F L 61 23 116/46 100
01/13/25 04:20 01/13/25 07:00 01/13/25 07:00 01/13/25 07:00 01/13/25 07:00
Lab Results - Hematology
01/11/25 01/12/25 01/12/25
09:43 04:03 04:51
WBC 28.2 H 19.3 H 29.0 H
01/12/25 01/13/25
19:11 03:53
WBC 28.4 H 32.7 H
Lab Results - Chemistry
01/11/25 01/12/25 01/12/25
09:43 04:03 05:01
BUN 64 H 45 H 60 H
Creatinine 1.2 0.8 1.1
Estimated Creat Clear 43 64 47
Albumin 3.3 L 2.3 L
01/13/25
03:53
BUN 60 H
Creatinine 1.3
Estimated Creat Clear 39
Albumin 2.6 L
01/11/25 01/11/25 01/11/25
09:43 09:43 17:40
Lactic Acid 4.4 H* Cancelled 1.7
Microbiology Results
01/11/25 10:34 Gram Stain - Preliminary
Scrotum
01/11/25 09:45 Blood Culture - Preliminary
Blood/Venous Staphylococcus epidermidis
Gram Stain - Preliminary
01/11/25 09:55 Urine Culture - Final
Urine
01/11/25 09:42 Blood Culture - Preliminary
Blood/Venous No Growth in 24 hours- Final report to follow
--- NOTE | 2025-01-13 08:21 | PTCARENOTE ---
Patient more oriented today. He can state name and date, he knows he is in [facility]. Patient does not understand what is going on medically. Patient comfortable, he denies any pain or discomfort. Heparin drip infusing at
14mls/hr/1400 units. Last PTT 105.8. Next PTT at 10:40am. Levo drip infusing at 6mcg. Order to maintain MAP >65. Last night patient started with multiple episodes of liquid stools. Rectal trumpet placed on retail shift manager to protect the surgical
incisions.
--- NOTE | 2025-01-13 08:48 | W.PN.HOSP.TC ---
Addendum entered and electronically signed by Selene Reagan MD 01/13/25 14:01:
Seen and examined the patient dependently. Agree with plan formulated by the resident-discussed
84-year-old with swelling in the penis and scrotal area with discoloration
01/09/25-USS- There are moderate bilateral hydroceles and marked swelling of the scrotal wall. The testicles themselves are unremarkable.
01/11/25-CT Pelvis-surrounding the penis and extending into the adjacent peritoneum there is an air-fluid density with thickened enhancing rim suggesting infection and abscess formation. Air density also extends superiorly extending into the left
anterior pelvic wall musculature and adjacent subcutaneous soft tissues. This could be suggestive of Radames's gangrene. Filling defect within the left common femoral vein with extension into the left femoral and profunda femoris veins likely
representing DVT. As warranted consideration for further evaluation with lower extremity peripheral ultrasound. Large amount of subcutaneous edema left greater than right. Significant scrotal wall thickening and edema especially inferiorly small
to moderate bilateral hydroceles.
Confused-better than yesterday
Cardiovascular system S1-S2 appreciated
Chest clear to auscultation
Abdomen soft and nontender
Incision noted in the perineum/scrotum area packing-no bleeding noted
# Radames's gangrene
Leukocytosis
Urology debrided the wound. Plan 4 OR again in a few days
Continue antibiotics IV hydration
Continue vancomycin, clindamycin and Zosyn
Urine cultures from 01/10/2024 with Enterococcus faecalis
ID and urology following
Pain control-continue oxycodone.
# Septic shock secondary to above
# Bilateral lower extremity DVTs-heparin drip started convert to long-term anticoagulation after OR on 01/15/2025
# Anemia-hemoglobin drop noted likely hemodilution-repeat noted. 1 unit of PRBCs
# Thrombocytosis-likely secondary to infection
# Lactic acidosis resolved
# Hyperglycemia Hemoglobin A1c 5.2
# Transaminitis-likely secondary to infection-better
# Seizures-continue Dilantin
# Hypertension-Hold amlodipine
# Vitamin D deficiency-replace
# Hypothyroidism-Continue levothyroxine
# DVT prophylaxis-Heparin
# CODE STATUS- DNR per pt preference, son aware
Spoke to patient's son. Got blood consent witnessed by NEENA Savage.
Son updated about patient's condition, DVTs, need for heparin
Part of this note was created using voice recognition system. Occasional wrong word or��sound alike� substitutions may have inadvertently occurred due to the inherent limitations of voice recognition software. If noted kindly bring it to my
attention for correction.
Original Note:
Today's Communication/Plan
-
Continue current antibiotics
Follow cultures from debridement and washout
Wound care
Possible OR in the future for further debridement
Pain control with oxycodone
IV heparin initiated for bilateral lower extremity DVTs
Echocardiogram ordered
1 unit PRBCs given
Assessment / Plan
Assessment / Plan
HPI: Patient is an 84-year-old male with a past medical history significant for chronic indwelling Gillette catheter, CKD, hypertension, hypothyroidism, epilepsy on phenytoin, hyperlipidemia who presented to the ER after being found to have a swollen
penis for 2 days and had a necrotic 1.5 inch tissue on the scrotum in the morning of his presentation to the emergency department. 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
Assessment/Plan:
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
Leukocytosis at admission
Urology debrided the wound. Plan 4 OR again in a few days
Continue antibiotics IV hydration
Continue vancomycin, clindamycin and Zosyn
Follow-up on cultures
Urine cultures from 01/10/2024 with Enterococcus faecalis
ID and urology following
Continue oxycodone for pain control
-Acute nonocclusive deep venous thrombosis in both lower extremities: Unresolved/monitoring
CT pelvis conducted on 01/11/2025 showed a filling defect within the left common femoral vein with extension into the left femoral and profundus femoral veins likely representing a DVT. Further evaluation with bilateral lower extremity peripheral
ultrasound ordered
Peripheral vascular ultrasound conducted on 01/12/2025 discovered acute nonocclusive deep venous thrombosis in both lower extremities
Echocardiogram ordered
Heparin IV initiated for DVTs
-Anemia: Monitoring
hemoglobin drop noted likely hemodilution
Hemoglobin on 01/13/2025 at 3:53 was 7.2�down from 7.8 on 01/13/2025 at 00:53 - marked drop in Hb - APTT 105.8 - Repeat APTT ordered
1 unit PRBCs given
-Thrombocytosis: Stable/monitoring
likely secondary to infection
Thrombocytes within normal limits on 01/13/2025 with a value of 325
-Lactic acidosis: resolved
Patient had a lactic acid of 4.4 on 01/11/2025
Lactic acid on follow-up lab work was 1.7
-Hyperglycemia: Stable
Serum glucose was 526 on 01/12/25 -possibly secondary to acute infectious process
Hemoglobin A1c is 5.2 indicating adequate glycemic control
-Transaminitis: Resolved
AST and ALT were elevated at 204 and 51 respectively - likely secondary to infection
AST and ALT are 38 and 27 respectively on 01/13/2025�resolved
-Seizures: Stable/monitoring
continue Dilantin
-Hypertension: Stable/monitoring
Hold amlodipine
-Vitamin D deficiency: Monitoring
Repleted
-Hypothyroidism: Stable/monitoring
Continue levothyroxine
CODE STATUS: DNR
DVT Prophylaxis: Heparin IV
Imaging:
- Scrotal ultrasound conducted on 01/09/2025:
There are moderate bilateral hydroceles and marked swelling of the scrotal wall. The testicles themselves are unremarkable.
- Pelvis CT conducted on 01/11/2025:
Surrounding the penis and extending into the adjacent peritoneum, there is air and fluid density with thickened enhancing rim, suggesting infection and abscess formation. The air density also extends superiorly extending into the left anterior
pelvic wall musculature and adjacent subcutaneous soft tissues.
These findings would be suggestive of Radames's gangrene.
Filling defect within the left common femoral vein with extension into the left femoral and profunda femoris veins, very likely representing deep venous thrombosis. As warranted, consideration for further evaluation with lower extremity peripheral
venous ultrasound.
Large amount of subcutaneous edema, left greater than right.
Significant scrotal wall thickening and edema, especially inferiorly. Small to moderate bilateral hydroceles.
- Peripheral vascular ultrasound conducted on 01/12/2025:
RIGHT LOWER EXTREMITY: There is acute nonocclusive deep venous thrombosis in the right femoral vein. The right common femoral and popliteal veins appear patent. The right posterior tibial and peroneal veins were not visualized.
LEFT LOWER EXTREMITY: There is acute nonocclusive deep venous thrombosis in the left common femoral, femoral, and popliteal veins. The left peroneal and posterior tibial veins are not visualized.
Procedures:
- OR 01/11 scrotal exploration, drainage and debridement, excision of penile skin necrosis
- OR 01/12 Washout of scrotum, lower pelvic and abdominal wound cavity drainage of residual infection collection, and debridement of necrotic tissue. Closure of open tunica vaginalis of scrotum. 5 mL of estimated blood loss. No complications. 2
scrotal [place] drains placed
Anticipated Discharge: > 48 hours
Subjective/Interval History
-
Date of Service: January 13, 2025
Met with the patient at the bedside. He states that he is 'okay' and feels like he is starting to recover. Overnight the patient had multiple loose/diarrheal bowel movements and the patient surgical dressing had to be fully replaced wound cleaned
and a new dressing applied. Patient was given a rectal trumpet to protect surgical site. He stated that he wanted to urinate and he was reminded that he had a Gillette and so he was able to do so. Patient was very somnolent during this morning
encounter. Patient was oriented to person place and time. Wound dressing appears to be intact without any unusual drainage.
Objective Data
-
Labs:
Laboratory Results
01/13/25 01/13/25 01/13/25
00:53 03:53 10:40
WBC 32.7 H
Hgb 7.8 L 7.2 L
Hct 23.8 L 21.5 L
Plt Count 325 D
APTT 105.8 H Pending
Sodium 134 L
Potassium 3.6
Chloride 105
Carbon Dioxide 22
BUN 60 H
Creatinine 1.3
Glucose 194 H
Calcium 7.4 L
Total Bilirubin 0.9
AST 38
ALT 27
Alkaline Phosphatase 165 H
Vital Signs:
Vital Signs
Temp Pulse Resp BP Pulse Ox
96.7 F L 54 12 122/68 98
01/13/25 08:00 01/13/25 08:15 01/13/25 08:15 01/13/25 08:00 01/13/25 08:26
I&O
01/12/25 01/13/25 01/14/25
06:59 06:59 06:59
Intake Total 1400 / 1400 4470 / 4470
Output Total 1200 / 1200
Balance 1375 / 1375 3270 / 3270
Review of Systems
-
History Source: Patient
Constitutional: Reports Fatigue
EENT: Reports No Symptoms Reported
Respiratory: Reports No Symptoms
Cardiac: Reports No Symptoms
Abdomen/GI: Reports No Symptoms
Genitourinary: Reports Difficulty Voiding and Other (scrotal pain )
Musculoskeletal: Reports No Symptoms
Skin: Reports Other (dressing over scrotum intact)
Neuro: Reports No Symptoms
Endocrine: Reports No Symptoms
Hematologic / Lymphatic: Reports No Symptoms
Allergy / Immunology: Reports No Symptoms
Physical Exam
-
General: Well Developed, Well Nourished, No Apparent Distress and Comfortable
HEENT: Normocephalic, Atraumatic and Moist Mucous Membranes
Respiratory: Clear to Auscultation
Cardiac: Regular Rhythm and S1/S2; Negative Murmur, Rub, JVD or HJR
Breast: Deferred by me
GI: Soft, Nontender, Nondistended and Normal Bowel Sounds
Rectal: Deferred by Provider
Genito-urinary: Gillette
Musculoskeletal: No Clubbing, No Cyanosis, No Edema, Edema, Right Lower Extrem (1+) and Edema, Left Lower Extrem (1+)
Skin: Warm, Dry and Normal Turgor; Negative Rash, Ulcers, Lesions or Jaundice
Neuro: Awake and Oriented
Psych: Calm
--- NOTE | 2025-01-13 08:51 | W.PN.ID1 ---
Date of Service
Date of Service: January 13, 2025
Today's Communication
continue current antibiotics
Assessment / Plan
Fourniers gangrene
Septic Shock
- OR 01/11 scrotal exploration, drainage and debridement, excision of penile skin necrosis
- OR 01/12 second washout and debridement
- OR cultures in progress
- repeat blood cultures are in progress
- c/w vancomycin, zosyn, clindamycin
- follow up OR cultures
- a1c 5.2
- follow clinically
- patient is critically ill
UTI - e faecalis
- covered by the zosyn
Pseudobacteremia (contaminated blood culture)
- 1 of 2 sets with S epidermidis
- no further workup indicated
Chief Complaint
-: Other (fourniers gangrene)
Subjective / Review of Systems
no fevers,
now on norepinephrine
has a diet
Vital Signs / Physical Exam
Vital Signs
Vital Signs
Temp Pulse Resp BP Pulse Ox
96.7 F L 54 12 122/68 98
01/13/25 08:00 01/13/25 08:15 01/13/25 08:15 01/13/25 08:00 01/13/25 08:26
Physical Exam
Constitutional: No Acute Distress
Cardiovascular: Regular Rate and S1/S2; Negative Murmur or Rub
Pulmonary: Clear and Symmetric; Negative Wheezes or Rales
Gastrointestinal: Soft, Non Tender, Non Distended and Normal Bowel Sounds
Genito-Urinary: Other (deferred take down of packing of penis, surrounding tissue no erythema, warmth or drainage)
Skin: Warm and Dry; Negative Rash or Jaundice
Objective Data
Lab Data
Lab Results
01/13/25 03:53
01/13/25 03:53
APTT 105.8 Sec (23.4-35.0) H 01/13/25 03:53
Estimated Creat Clear 39 ml/min 01/13/25 03:53
Lactic Acid 1.7 mmol/L (0.7-2.0) 01/11/25 17:40
Total Bilirubin 0.9 mg/dl (0.2-1.3) 01/13/25 03:53
AST 38 U/L (17-59) 01/13/25 03:53
ALT 27 U/L (0-50) 01/13/25 03:53
Alkaline Phosphatase 165 U/L (38-126) H 01/13/25 03:53
Most recent labs reviewed.
Micro Results:
01/11/25 09:45 Blood Culture - Preliminary
Blood/Venous Staphylococcus epidermidis
Gram Stain - Preliminary
01/11/25 17:29 MRSA Screen - Final
Nose No Methicillin Resistant Staphylococcus aureus isolated.
01/13/25 05:02 Blood Culture - Pending
Blood/Venous
01/13/25 03:53 Blood Culture - Pending
Blood/Venous
01/11/25 10:34 Wound Culture - Pending
Scrotum Gram Stain - Preliminary
01/11/25 09:55 Urine Culture - Final
Urine
01/11/25 10:34 Anaerobic Culture - Pending
Scrotum
01/11/25 09:42 Blood Culture - Preliminary
Blood/Venous No Growth in 24 hours- Final report to follow
--- NOTE | 2025-01-13 09:49 | VATNOTE ---
Care and access reviewed with primary RN. Patient has adequate peripheral access at this time, with one additional unused PIV. PICC order on hold at this time.
[2025-01-13 11:16] LABS: APTT 112.0 Sec (23.4-35.0)
[2025-01-13] MEDS: DILANTIN 300 MG PO (12:01)
[2025-01-13] MEDS: VITAMIN D3 (cholecalciferol) 50 MCG PO (12:01)
[2025-01-13] MEDS: TYLENOL 650 MG PO (12:01)
[2025-01-13] MEDS: ZOSYN IV (13:06)
[2025-01-13] MEDS: ROXICODONE 5 MG PO (13:12)
--- NOTE | 2025-01-13 13:41 | W.PN.URO.CBU ---
Today's Communication / Plan
-
- Nursing to continue outer dressing changes PRN
- Plan to return to OR 01/15 for another exam under anesthesia, packing change, possible partial wound closure
- Continue abx per ID
b/l DVT
- Okay to continue heparin gtt - no active bleeding from wound sites
- After last planned trip to OR can switch to longer term anticoagulation
Assessment / Plan
-
Radames's gangrene
Severe necrotizing infection of penis, scrotum, pubic fat pad, extending to LLQ anterior pelvic wall
01/11/25: I&D, debridement, drainage of abscess
01/12/25: wound exploration, washout, debridement, dressing change, closure of tunica vaginalis
- Unfortunately overall prognosis for healing and recovery given age and baseline health is poor
- Nursing to continue outer dressing changes PRN
- Plan to return to OR 01/15 for another exam under anesthesia, packing change, possible partial wound closure
- Continue abx per ID
b/l DVT
- Okay to continue heparin gtt - no active bleeding from wound sites
- After last planned trip to OR can switch to longer term anticoagulation
Diagnosis
-
Date of Service: January 13, 2025
-
Patient Diagnosis:
Radames's gangrene
b/l DVT
Post Op Day:
01/11/25: I&D, debridement, drainage of abscess
01/12/25: wound exploration, washout, debridement, dressing change, closure of tunica vaginalis
Subjective
-
No events overnight
Patient does not retain any information about discussions over past several days
Objective
-
Vital Signs
Temp Pulse Resp BP Pulse Ox
97.6 F 64 12 115/49 97
01/13/25 12:07 01/13/25 12:07 01/13/25 12:07 01/13/25 12:07 01/13/25 11:44
Intake and Output
01/12/25 01/13/25 01/14/25
06:59 06:59 06:59
Intake Total 1400 / 1400 4470 / 4470 1660 / 1660
Output Total 1200 / 1200 250 / 250
Balance 1375 / 1375 3270 / 3270 1410 / 1410
Intake:
Oral fluids 1770 / 1770 790 / 790
IV fluids (Total) 1400 / 1400 2250 / 2250 750 / 750
Normosol 400 / 400 350 / 350
IV piggybacks 450 / 450 120 / 120
Blood Product Amount Infused ( 0 0
mL)
Packed Rbc Leukoreduced Unit 0 / 0
[id number]
Output:
Urine, Swift 1200 / 1200 250 / 250
Laboratory Results
01/13/25 03:53
01/13/25 03:53
Physical Exam
-
General - well developed, well nourished, no acute distress
Chest - clear bilaterally
Abdomen - soft, non-tender
Dressings in place, wound edges clear
Urine cloudy with swift
--- NOTE | 2025-01-13 14:12 | PTCARENOTE ---
Patient received one unit PRBC's without incident. VS stable (see work list).
[2025-01-13] MEDS: HEPARIN 25000 UNITS/250 ML IV (16:03)
[2025-01-13 18:36] LABS: Hematocrit 23.2 % (39.0-52.0); Hemoglobin 7.5 g/dL (13.0-18.0); Mean Corp Hgb Conc. 32.3 g/dL (33.0-37.0); Mean Corpuscular Volume 90.6 fL (80.0-94.0); Platelet Count 318 10^3/uL (130-400); Red Cell Dist. Width 17.6 % (11.5-14.5)
[2025-01-13 18:48] LABS: APTT 89.7 Sec (23.4-35.0)
[2025-01-13] MEDS: FLOMAX 0.4 MG PO (20:15)
[2025-01-14] VITALS (69 sets, daily range): BP systolic 84–130; BP diastolic 42–80
--- NOTE | 2025-01-14 00:12 | PTCARENOTE ---
Pt increasingly agitated with turning/repositioning. Wound dressings soiled, pt informed that these dressings must be cleaned and changed to prevent further infection. Pt state he will not turn/roll in bed. Pt turned with max assist x2, cleaned,
wound dressings reinforced with clean ABDs. Rectal trumpet flushed. Bilateral wrist restraints applied.
--- NOTE | 2025-01-14 01:10 | PTCARENOTE ---
Pt remains on heparin gtt. 0100 PTT therapeutic. Currently running at 12ml/hr.
[2025-01-14 01:25] LABS: APTT 110.7 Sec (23.4-35.0)
[2025-01-14] MEDS: LR 1000 IV ×2 (03:47→19:11)
[2025-01-14] MEDS: ZOSYN 50 IV ×4 (03:48→21:29)
[2025-01-14] MEDS: CLEOCIN 50 IV (03:48)
--- NOTE | 2025-01-14 04:14 | PTCARENOTE ---
Pt aaox3, able to recall conversation he had with urologist Dr March about his infection. MAPs improved. Last MAP 82, BP 106/71. Weaned off levo gtt. Restraints untied. Pt apologetic for becoming agitated overnight, states he was 'just scared'. Pt
resting comfortably in bed at this time. VSS. Care ongoing.
[2025-01-14] MEDS: SYNTHROID 50 MCG PO (04:46)
[2025-01-14] MEDS: ROXICODONE 5 MG PO ×3 (04:46→15:50)
[2025-01-14 06:00] LABS: Hematocrit 20.1 % (39.0-52.0); Hemoglobin 6.6 g/dL (13.0-18.0); Mean Corp Hgb Conc. 32.8 g/dL (33.0-37.0); Mean Corpuscular Volume 91.0 fL (80.0-94.0); Platelet Count 273 10^3/uL (130-400); Red Cell Dist. Width 18.3 % (11.5-14.5)
[2025-01-14 06:05] LABS: ALT (SGPT) 17 U/L (0-50); AST (SGOT) 23 U/L (17-59); Albumin 2.0 g/dl (3.5-5.0); Alkaline Phosphatase 116 U/L (38-126); Blood Urea Nitrogen 49 mg/dl (9-20); Calcium 6.9 mg/dl (8.4-10.2); Carbon Dioxide 24 mmol/L (22-30); Chloride 105 mmol/L (98-107); Estimated Creatinine Clearance 47 ml/min; Glucose 123 mg/dl (70-99); Potassium 3.3 mmol/L (3.5-5.1); Sodium 133 mmol/L (135-145); Total Protein 5.1 g/dl (6.3-8.2); eGFR > 60.00
--- NOTE | 2025-01-14 06:09 | W.PN.UPDATE ---
Update Note
Progress Note Update
This am hgb level 6.6. One unit of blood ordered. No visible signs of bleeding.
Patient restarted on levophed for hypotension. Currently on IVF fluid LR @125cc/hr.
Will check hemetest and order h&h q 6hrs.
--- NOTE | 2025-01-14 06:30 | PTCARENOTE ---
hgb 6.6 this am, DATABASE SPECIALIST notified, 1 unit PRBC ordered.
[2025-01-14] MEDS: CALCIUM GLUCONATE 100 IV ×2 (06:37→16:31)
--- NOTE | 2025-01-14 07:30 | W.PN.HOSP.TC ---
Addendum entered and electronically signed by Selene Reagan MD 01/14/25 17:29:
Seen and examined the patient dependently. Agree with plan formulated by the resident-discussed
84-year-old with swelling in the penis and scrotal area with discoloration
01/09/25-USS- There are moderate bilateral hydroceles and marked swelling of the scrotal wall. The testicles themselves are unremarkable.
01/11/25-CT Pelvis-surrounding the penis and extending into the adjacent peritoneum there is an air-fluid density with thickened enhancing rim suggesting infection and abscess formation. Air density also extends superiorly extending into the left
anterior pelvic wall musculature and adjacent subcutaneous soft tissues. This could be suggestive of Radames's gangrene. Filling defect within the left common femoral vein with extension into the left femoral and profunda femoris veins likely
representing DVT. As warranted consideration for further evaluation with lower extremity peripheral ultrasound. Large amount of subcutaneous edema left greater than right. Significant scrotal wall thickening and edema especially inferiorly small
to moderate bilateral hydroceles.
Confused-better than yesterday
Cardiovascular system S1-S2 appreciated
Chest clear to auscultation
Abdomen soft and nontender
Incision noted in the perineum/scrotum area packing-no bleeding noted, packing felt underneath right inguinal area just by the pubic bone
Patient states that he just wants to
# Radames's gangrene
Leukocytosis improving
Urology debrided the wound. Plan 4 OR again tomorrow
Continue antibiotics IV hydration
Continue vancomycin and Zosyn. Off clindamycin
Urine cultures from 01/10/2024 with Enterococcus faecalis
ID and urology following
Pain control-continue oxycodone.
# Septic shock secondary to above
# Bilateral lower extremity DVTs-heparin drip started convert to long-term anticoagulation after OR on 01/15/2025
# Anemia-hemoglobin drop noted likely hemodilution-repeat noted. 2 units of PRBCs
# Thrombocytosis-likely secondary to infection
# Lactic acidosis resolved
# Hyperglycemia Hemoglobin A1c 5.2
# Transaminitis-likely secondary to infection-better
# Seizures-continue Dilantin
# Hypertension-Hold amlodipine
# Vitamin D deficiency-replace
# Hypothyroidism-Continue levothyroxine
# DVT prophylaxis-Heparin
# CODE STATUS- DNR per pt preference, son aware
Part of this note was created using voice recognition system. Occasional wrong word or��sound alike� substitutions may have inadvertently occurred due to the inherent limitations of voice recognition software. If noted kindly bring it to my
attention for correction.
Original Note:
Today's Communication/Plan
-
Continue oxycodone for pain control
Plan to return to OR on 01/15
Continue Heparin IV for DVTs
Patient's hemoglobin was found to be 6.6�an additional unit of PRBCs administered - Repeat H&H ordered to trend Hgb
Patient had a calcium of 6.9 and an albumin of 2.0 on 01/14/2025 -corrected calcium level is 8.1 which is below normal limits. Calcium repleted
Patient was hypokalemic with a potassium of 3.3�repleted
Assessment / Plan
Assessment / Plan
HPI: Patient is an 84-year-old male with a past medical history significant for chronic indwelling Gillette catheter, CKD, hypertension, hypothyroidism, epilepsy on phenytoin, hyperlipidemia who presented to the ER after being found to have a swollen
penis for 2 days and had a necrotic 1.5 inch tissue on the scrotum in the morning of his presentation to the emergency department. 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
Assessment/Plan:
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
Leukocytosis at admission
Urology debrided the wound. Plan 4 OR again in a few days
Continue antibiotics IV hydration
Continue vancomycin and Zosyn
Clindamycin discontinued after 2 days
Follow-up on cultures
Urine cultures from 01/10/2024 with Enterococcus faecalis
ID and urology following
Patient's white blood cell count is 15.8 and downtrending on 01/14/2025
Continue oxycodone for pain control
Plan to return to OR on 01/15
-Acute nonocclusive deep venous thrombosis in both lower extremities: Unresolved/monitoring
CT pelvis conducted on 01/11/2025 showed a filling defect within the left common femoral vein with extension into the left femoral and profundus femoral veins likely representing a DVT. Further evaluation with bilateral lower extremity peripheral
ultrasound ordered
Peripheral vascular ultrasound conducted on 01/12/2025 discovered acute nonocclusive deep venous thrombosis in both lower extremities
Echocardiogram showed normal biventricular size and systolic function without regional wall motion abnormalities. Left ventricular ejection fraction 64%. Mild tricuspid regurgitation with mildly elevated pulmonary artery pressures. Pleural
effusion is present.
Continue Heparin IV for DVTs
-Anemia: Monitoring
hemoglobin drop noted likely hemodilution
Hemoglobin on 01/13/2025 at 3:53 was 7.2�down from 7.8 on 01/13/2025 at 00:53 - marked drop in Hb - APTT 105.8 - Repeat APTT ordered
1 unit PRBCs given on 01/13/25
Patient's hemoglobin on 01/14/2025 was found to be 6.6�an additional unit of PRBCs administered - Repeat H&H ordered to trend Hgb
-Hypokalemia: Unresolved
Patient was hypokalemic with a potassium of 3.3 on 01/14/25�repleted
-Hypocalcemia: Unresolved
Patient had a calcium of 6.9 and an albumin of 2.0 on 01/14/2025 -corrected calcium level is 8.1 which is below normal limits. Calcium repleted
-Thrombocytosis: Stable/monitoring
likely secondary to infection
Thrombocytes within normal limits on 01/13/2025 with a value of 325
-Lactic acidosis: resolved
Patient had a lactic acid of 4.4 on 01/11/2025
Lactic acid on follow-up lab work was 1.7
-Hyperglycemia: Stable
Serum glucose was 526 on 01/12/25 -possibly secondary to acute infectious process
Hemoglobin A1c is 5.2 indicating adequate glycemic control
-Transaminitis: Resolved
AST and ALT were elevated at 204 and 51 respectively - likely secondary to infection
AST and ALT are 38 and 27 respectively on 01/13/2025�resolved
-Seizures: Stable/monitoring
continue Dilantin
-Hypertension: Stable/monitoring
Hold amlodipine
-Vitamin D deficiency: Monitoring
Repleted
-Hypothyroidism: Stable/monitoring
Continue levothyroxine
CODE STATUS: DNR
DVT Prophylaxis: Heparin IV
Imaging:
- Scrotal ultrasound conducted on 01/09/2025:
There are moderate bilateral hydroceles and marked swelling of the scrotal wall. The testicles themselves are unremarkable.
- Pelvis CT conducted on 01/11/2025:
Surrounding the penis and extending into the adjacent peritoneum, there is air and fluid density with thickened enhancing rim, suggesting infection and abscess formation. The air density also extends superiorly extending into the left anterior
pelvic wall musculature and adjacent subcutaneous soft tissues.
These findings would be suggestive of Radames's gangrene.
Filling defect within the left common femoral vein with extension into the left femoral and profunda femoris veins, very likely representing deep venous thrombosis. As warranted, consideration for further evaluation with lower extremity peripheral
venous ultrasound.
Large amount of subcutaneous edema, left greater than right.
Significant scrotal wall thickening and edema, especially inferiorly. Small to moderate bilateral hydroceles.
- Peripheral vascular ultrasound conducted on 01/12/2025:
RIGHT LOWER EXTREMITY: There is acute nonocclusive deep venous thrombosis in the right femoral vein. The right common femoral and popliteal veins appear patent. The right posterior tibial and peroneal veins were not visualized.
LEFT LOWER EXTREMITY: There is acute nonocclusive deep venous thrombosis in the left common femoral, femoral, and popliteal veins. The left peroneal and posterior tibial veins are not visualized.
- Echocardiogram conducted on 01/14/2025:
1. Normal biventricular size and systolic function without regional wall motion abnormalities. LVEF 64%.
2. Mild tricuspid regurgitation with mildly elevated pulmonary artery pressures (PASP 38 mmHg).
3. Pleural effusion present.
4. No prior study available for comparison.
Procedures:
- OR 01/11 scrotal exploration, drainage and debridement, excision of penile skin necrosis
- OR 01/12 Washout of scrotum, lower pelvic and abdominal wound cavity drainage of residual infection collection, and debridement of necrotic tissue. Closure of open tunica vaginalis of scrotum. 5 mL of estimated blood loss. No complications. 2
scrotal Clarice drains placed
Anticipated Discharge: > 48 hours
Subjective/Interval History
-
Date of Service: January 14, 2025
Met with patient at the bedside. He is still very somnolent and not responsive to questions. He appears to be resting comfortably in bed and not in any acute distress. Seen with soft restraints (untied) bilaterally in both arms due to increasing
agitation over the evening. Patient was agitated with turning/repositioning. Nursing staff was trying to clean his wound dressings and the patient refused to turn and became increasingly agitated.
Objective Data
-
Labs:
Laboratory Results
01/14/25 01/14/25 01/14/25
01:01 05:23 13:00
WBC 15.8 H
Hgb 6.6 L* Pending
Hct 20.1 L* Pending
Plt Count 273
APTT 110.7 H
Sodium 133 L
Potassium 3.3 L
Chloride 105
Carbon Dioxide 24
BUN 49 H
Creatinine 1.1
Glucose 123 H
Calcium 6.9 L*
Total Bilirubin 0.6
AST 23
ALT 17
Alkaline Phosphatase 116
01/14/25
19:00
WBC
Hgb Pending
Hct Pending
Plt Count
APTT
Sodium
Potassium
Chloride
Carbon Dioxide
BUN
Creatinine
Glucose
Calcium
Total Bilirubin
AST
ALT
Alkaline Phosphatase
Vital Signs:
Vital Signs
Temp Pulse Resp BP Pulse Ox
98.6 F 56 11 106/49 98
01/14/25 09:08 01/14/25 09:08 01/14/25 09:08 01/14/25 09:08 01/14/25 09:08
I&O
01/13/25 01/14/25 01/15/25
06:59 06:59 06:59
Intake Total 4470 / 4470 3145 / 3145 700 / 700
Output Total 1200 / 1200 875 / 875
Balance 3270 / 3270 2270 / 2270 700 / 700
Review of Systems
-
Unable to obtain full review of systems at this time due to: Acuity
Abdomen/GI: Reports Pain (Pain in R inguinal area)
Psych: Reports Depressed
Physical Exam
-
General: Well Developed, Well Nourished, No Apparent Distress and Comfortable
HEENT: Normocephalic, Atraumatic and Moist Mucous Membranes
Respiratory: Clear to Auscultation
Cardiac: Regular Rhythm and S1/S2; Negative Murmur, Rub, JVD or HJR
Breast: Deferred by me
GI: Soft, Nontender, Nondistended and Normal Bowel Sounds
Rectal: Deferred by Provider
Genito-urinary: Gillette
Musculoskeletal: No Clubbing, No Cyanosis, No Edema, Edema, Right Lower Extrem (1+) and Edema, Left Lower Extrem (1+)
Skin: Warm, Dry and Normal Turgor; Negative Rash, Ulcers, Lesions or Jaundice
Neuro: Awake and Oriented
Psych: Calm
--- NOTE | 2025-01-14 08:05 | PHA.VAN.FU ---
Vancomycin Assessment / Plan
- Assessment
Renal Function: SCR Decreasing
WBC's are: Trending Down
In the past 24 hrs, patient has been: Afebrile
Concomitant Antimicrobials: PIPERACILLIN/TAZOBACTAM
- Assessment - Therapeutic Drug Monitoring
Random Level: 17.2 DRAWN ~24 HR AFTER PREVIOUS DOSE VANCO 1000MG
- Dosing Plan
Dosing by Level: Re-dose today (VANCO 1000MG X1)
- Monitoring Plan
Random Level: 01/15 @0600
- Follow Up
Pharmacy will continue to follow.
Vancomycin Follow UP
- -
Patient Age: 84
Patient Sex: Male
Vancomycin Day #: 4
Indication: Skin And Soft Tissue
Requesting Provider: Dr. Bermudez
Pertinent Antimicrobial Allergies:
no pertinent antimicrobial allergies
Height / Weight:
Height 5 ft 8 in
Actual Weight 77.1 kg
- Vital Signs / Lab Results
Temp Pulse Resp BP Pulse Ox
97.0 F 60 17 120/52 95
01/14/25 07:03 01/14/25 07:03 01/14/25 07:03 01/14/25 07:03 01/14/25 01:35
Lab Results - Hematology
01/11/25 01/12/25 01/12/25
09:43 04:03 04:51
WBC 28.2 H 19.3 H 29.0 H
01/12/25 01/13/25 01/13/25
19:11 03:53 18:30
WBC 28.4 H 32.7 H 24.9 H
01/14/25
05:23
WBC 15.8 H
Lab Results - Chemistry
01/11/25 01/12/25 01/12/25
09:43 04:03 05:01
BUN 64 H 45 H 60 H
Creatinine 1.2 0.8 1.1
Estimated Creat Clear 43 64 47
Albumin 3.3 L 2.3 L
01/13/25 01/14/25
03:53 05:23
BUN 60 H 49 H
Creatinine 1.3 1.1
Estimated Creat Clear 39 47
Albumin 2.6 L 2.0 L
01/11/25 01/11/25 01/11/25
09:43 09:43 17:40
Lactic Acid 4.4 H* Cancelled 1.7
Microbiology Results
01/13/25 05:02 Blood Culture - Preliminary
Blood/Venous No Growth in 24 hours- Final report to follow
01/13/25 03:53 Blood Culture - Preliminary
Blood/Venous No Growth in 24 hours- Final report to follow
01/11/25 09:42 Blood Culture - Preliminary
Blood/Venous No Growth in 48 hours- Final report to follow
01/11/25 10:34 Anaerobic Culture - Preliminary
Scrotum Culture pending. Anaerobic cultures are examined after 3
days incubation. Additional information to follow.
01/11/25 10:34 Wound Culture - Preliminary
Scrotum Gram Stain - Preliminary
01/11/25 09:45 Blood Culture - Preliminary
Blood/Venous Staphylococcus epidermidis
Gram Stain - Preliminary
01/11/25 17:29 MRSA Screen - Final
Nose No Methicillin Resistant Staphylococcus aureus isolated.
01/11/25 09:55 Urine Culture - Final
Urine
Therapeutic Drug Monitoring
Random Vancomycin 17.2 ug/ml 01/14/25 05:23
[2025-01-14] MEDS: VANCOCIN 200 IV (08:49)
[2025-01-14] MEDS: DILANTIN 300 MG PO (08:50)
[2025-01-14] MEDS: VITAMIN D3 (cholecalciferol) 50 MCG PO (08:50)
--- NOTE | 2025-01-14 08:52 | W.PN.ID1 ---
Date of Service
Date of Service: January 14, 2025
Today's Communication
- c/w vancomycin, zosyn,
- has completed two days of clindamycin, stopped
note infiltrate, most likely pneumonitis
Assessment / Plan
Fourniers gangrene
Septic Shock
Probable Aspiration pneumonitis
- OR 01/11 scrotal exploration, drainage and debridement, excision of penile skin necrosis
- OR 01/12 second washout and debridement
- plan to return to the OR 01/15
- OR cultures in progress; few GPCs and rare GPR
- repeat blood cultures are in progress
- c/w vancomycin, zosyn,
- has completed two days of clindamycin, stopped
- follow up OR cultures
- a1c 5.2
- follow clinically
- patient is critically ill
UTI - e faecalis
- covered by the zosyn
Pseudobacteremia (contaminated blood culture)
- 1 of 2 sets with S epidermidis
- no further workup indicated
Chief Complaint
-: Other (fourniers gangrene)
Subjective / Review of Systems
remains afebrile
norepi titrated down to 2 mcg/min
a PICC has been placed
CXR with a large dense LLL consolidation
'just let me ' explained that he's not actively dying but actually getting significantly better
Vital Signs / Physical Exam
Vital Signs
Vital Signs
Temp Pulse Resp BP Pulse Ox
97.0 F 60 17 120/52 95
01/14/25 07:03 01/14/25 07:03 01/14/25 07:03 01/14/25 07:03 01/14/25 01:35
Physical Exam
Constitutional: No Acute Distress
Cardiovascular: Regular Rate and S1/S2; Negative Murmur or Rub
Pulmonary: Clear and Symmetric; Negative Wheezes or Rales
Gastrointestinal: Soft, Non Tender, Non Distended and Normal Bowel Sounds
Skin: Warm and Dry; Negative Rash or Jaundice
Wound: Other (dressing moderate amount of serosanguinous fluid, deferred take down to exam under anesthesia which is planned)
Objective Data
Lab Data
Lab Results
01/14/25 05:23
APTT 110.7 Sec (23.4-35.0) H 01/14/25 01:01
Estimated Creat Clear 47 ml/min 01/14/25 05:23
Lactic Acid 1.7 mmol/L (0.7-2.0) 01/11/25 17:40
Total Bilirubin 0.6 mg/dl (0.2-1.3) 01/14/25 05:23
AST 23 U/L (17-59) 01/14/25 05:23
ALT 17 U/L (0-50) 01/14/25 05:23
Alkaline Phosphatase 116 U/L (38-126) 01/14/25 05:23
Most recent labs reviewed.
Micro Results:
01/13/25 05:02 Blood Culture - Preliminary
Blood/Venous No Growth in 24 hours- Final report to follow
01/13/25 03:53 Blood Culture - Preliminary
Blood/Venous No Growth in 24 hours- Final report to follow
01/11/25 09:42 Blood Culture - Preliminary
Blood/Venous No Growth in 48 hours- Final report to follow
01/11/25 10:34 Anaerobic Culture - Preliminary
Scrotum Culture pending. Anaerobic cultures are examined after 3
days incubation. Additional information to follow.
01/11/25 10:34 Wound Culture - Preliminary
Scrotum Gram Stain - Preliminary
01/11/25 09:45 Blood Culture - Preliminary
Blood/Venous Staphylococcus epidermidis
Gram Stain - Preliminary
01/11/25 17:29 MRSA Screen - Final
Nose No Methicillin Resistant Staphylococcus aureus isolated.
01/11/25 09:55 Urine Culture - Final
Urine
--- NOTE | 2025-01-14 09:50 | PTCARENOTE ---
Rounds completed by VAT team RN. Patient noted to have +2 edema to L arm. Dr. Reagan made aware. L arm INT removed. Care ongoing.
--- NOTE | 2025-01-14 10:50 | CM ---
Following up on Patient. EDI Schwab confirmed with Liaison from [facility] that this patient can return. Hospitalist Notes state that patient restarted on Levophed for hypotension.
PLAN: Return to [facility] when ready.
--- NOTE | 2025-01-14 11:23 | PTCARENOTE ---
Patient consistently yelling out 'let me in peace'. Dr. Reagan made aware. Safe environment maintained. Emotional support provided. Care ongoing.
[2025-01-14] MEDS: KCL 270 MEQ IV (11:29)
[2025-01-14] MEDS: HEPARIN 25000 UNITS/250 ML IV (13:00)
--- NOTE | 2025-01-14 13:49 | W.PN.URO.CBU ---
Today's Communication / Plan
-
OR tomorrow
Hold heparin at 3am
Assessment / Plan
-
Radames's gangrene
Severe necrotizing infection of penis, scrotum, pubic fat pad, extending to LLQ anterior pelvic wall
01/11/25: I&D, debridement, drainage of abscess
01/12/25: wound exploration, washout, debridement, dressing change, closure of tunica vaginalis
- Nursing to continue outer dressing changes PRN
- Plan to return to OR 01/15 for another exam under anesthesia, packing change, possible partial wound closure
- Continue abx per ID
b/l DVT
- Okay to continue heparin gtt - no active bleeding from wound sites
- Hold heparin for planned OR tomorrow
- After last planned trip to OR can switch to longer term anticoagulation
Diagnosis
-
Date of Service: January 14, 2025
-
Patient Diagnosis:
Radames's gangrene
b/l DVT
Post Op Day:
01/11/25: I&D, debridement, drainage of abscess
01/12/25: wound exploration, washout, debridement, dressing change, closure of tunica vaginalis
Subjective
-
No events
needed pressor for hypotension
Objective
-
Vital Signs
Temp Pulse Resp BP Pulse Ox
97.4 F 63 14 105/53 98
01/14/25 11:00 01/14/25 12:00 01/14/25 12:00 01/14/25 12:00 01/14/25 12:00
Intake and Output
01/13/25 01/14/25 01/15/25
06:59 06:59 06:59
Intake Total 4470 / 4470 3145 / 3145 1020 / 1020
Output Total 1200 / 1200 875 / 875
Balance 3270 / 3270 2270 / 2270 1020 / 1020
Intake:
Oral fluids 1770 / 1770 1115 / 1115
IV fluids (Total) 2250 / 2250 1500 / 1500
Normosol 350 / 350
IV piggybacks 450 / 450 280 / 280 520 / 520
Blood products 250 / 250
Blood Product Amount Infused ( 250 / 250 250 / 250
mL)
Packed Rbc Leukoreduced Unit 250 / 250
[id number]
Packed Rbc Leukoreduced Unit 0 / 0 250 / 250
[id number]
Output:
Urine, Gillette 1200 / 1200 / 87
Laboratory Results
01/14/25 05:23
Physical Exam
-
General - well developed, well nourished, no acute distress
Chest - clear
Abdomen - soft, non-tender
Incision - clean, dry
Dressing - clean, dry, intact
--- NOTE | 2025-01-14 14:41 | PTCARENOTE ---
Patient AOx2 (self and place) and forgetful. Patient angry, agitated, and uncooperative at times. Bed alarm on and audible. Drowsy but arouses to voice. 2L NC with SpO2 greater than 92%. NSR-sinus tami with BBB on monitor. Dressing reinforced with
ABD. 2 maurilio drains in scrotum. Rectal trumpet draining liquid stool. Gillette draining yellow urine with sediment. Refusing to eat food throughout shift. Heparin gtt running at 12/hr. IVF running at 100 ml/hr. Call gupta within reach, bed in lowest
position, and bed of wheels locked.
[2025-01-14 14:54] LABS: Hematocrit 25.9 % (39.0-52.0); Hemoglobin 8.4 g/dL (13.0-18.0)
[2025-01-14] MEDS: LR IV (15:50)
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
[2025-01-14 20:36] LABS: Hematocrit 26.8 % (39.0-52.0); Hemoglobin 8.7 g/dL (13.0-18.0)
--- NOTE | 2025-01-14 20:56 | PTCARENOTE ---
Caring for pt overnight. aaox1, slow garbled speech. Confused/forgetful. Not interested in his care, wants to be left alone and wants to go home. IVF running. Hep gtt running. Repeat H&H was stable. Gillette in place, yellow sediment. RT in place,
continues with diarrhea. VSS. Q2T. +2 LUE, BLE & scrotum. reinforced groin dressing with ABDs. Pelham drains intact. Plan for OR in the morning, heparin gtt to be turned off at 0300. will continue to monitor.
[2025-01-14] MEDS: FLOMAX 0.4 MG PO (21:29)
[2025-01-15] VITALS (16 sets, daily range): BP systolic 95–155; BP diastolic 56–122
[2025-01-15 03:27] LABS: Hematocrit 25.5 % (39.0-52.0); Hemoglobin 8.5 g/dL (13.0-18.0); Mean Corp Hgb Conc. 33.3 g/dL (33.0-37.0); Mean Corpuscular Volume 88.5 fL (80.0-94.0); Platelet Count 299 10^3/uL (130-400); Red Cell Dist. Width 18.7 % (11.5-14.5)
[2025-01-15 03:56] LABS: ALT (SGPT) 16 U/L (0-50); AST (SGOT) 22 U/L (17-59); Albumin 2.2 g/dl (3.5-5.0); Alkaline Phosphatase 125 U/L (38-126); Blood Urea Nitrogen 40 mg/dl (9-20); Calcium 7.4 mg/dl (8.4-10.2); Carbon Dioxide 24 mmol/L (22-30); Chloride 107 mmol/L (98-107); Estimated Creatinine Clearance 43 ml/min; Glucose 106 mg/dl (70-99); Potassium 4.1 mmol/L (3.5-5.1); Sodium 134 mmol/L (135-145); Total Protein 5.5 g/dl (6.3-8.2); eGFR 58.89
[2025-01-15] MEDS: ZOSYN 50 IV ×4 (04:13→22:56)
[2025-01-15] MEDS: SYNTHROID 50 MCG PO (06:11)
[2025-01-15] MEDS: LR 1000 IV ×2 (06:12→15:26)
[2025-01-15] MEDS: DILANTIN 300 MG PO (07:39)
[2025-01-15] MEDS: VITAMIN D3 (cholecalciferol) 50 MCG PO (07:39)
--- NOTE | 2025-01-15 08:53 | PN.CDI ---
CDI
- -
CDI:
Physician Documentation Request
Admit Date: 01/11/25 14:52
Dear Doctor Tez/Resident,
Please review the following and provide your response in the progress notes.
Clinical Indicators:
Pt admitted with Sepsis 2/2 necrotizing fascitis scrotum
Sodium levels are as below/Pt did get IVFs LR
Laboratory Tests
01/12/25 01/13/25 01/14/25
04:03 03:53 05:23
Sodium 131 L D 134 L 133 L
01/15/25
03:08
Sodium 134 L
Based on the above, could you clarify in the progress notes, the appropriate diagnosis, if significant, that supports the above abnormalities and additional evaluation, monitoring and/or treatment rendered:
Hyponatremia
Abnormal lab value only
Other ( please specify)
Use of terms such as suspected, likely, concern for, or probable (associated with a specific diagnosis that is being evaluated, monitored, or treated as if it exists) are acceptable and can be coded in the inpatient setting, when documented at the
time of discharge.
Thank you,
Kami Lay RN
CDI Specialist
[place] [facility]
Please use your independent medical judgment in providing your response.
--- NOTE | 2025-01-15 08:57 | PN.CDI ---
CDI
- -
CDI:
Physician Documentation Request
Admit Date: 01/11/25 14:52
Dear Doctor Tez/Resident ,
Please review the following and provide your response in the progress notes.
Clinical Indicators:
Pt admitted with Sepsis 2/2 necrotizing fascitis scrotum s/p Scrotal exploration, debridement of Radames's gangrene necrotizing fasciitis, wound packing 01/11
Progress note 01/14, ' Urology debrided the wound. Plan 4 OR again tomorrow Anemia-hemoglobin drop noted likely hemodilution-repeat noted. 2 units of PRBCs...'
Trended hemoglobin/Hematocrit below
Laboratory Tests
01/11/25 01/12/25 01/12/25
09:43 04:03 04:51
Hgb 10.0 L 5.3 L* D 7.5 L D
Hct 29.1 L 16.3 L* 22.7 L
01/12/25 01/14/25
19:11 05:23
Hgb 7.1 L 6.6 L*
Hct 21.8 L 20.1 L*
01/15/25
03:08
Hgb 8.5 L
Hct 25.5 L
Based on the above, could you clarify, in your progress note, which of the following is the most likely type of anemia you are evaluating, monitoring and/or treating?
Acute blood loss anemia/Dilutional anemia
Drop in HGB with dilutional anemia only
Other ( please specify)
Use of terms such as suspected, likely, concern for, or probable (associated with a specific diagnosis that is being evaluated, monitored, or treated as if it exists) are acceptable and can be coded in the inpatient setting, when documented at the
time of discharge.
Thank you,
Kami Lay RN
CDI Specialist
[place] [facility]
Please use your independent medical judgment in providing your response.
--- NOTE | 2025-01-15 09:06 | PN.CDI ---
CDI
- -
CDI:
Physician Documentation Request
Admit Date: 01/11/25 14:52
Dear Doctor Tez/Resident ,
Please review the following and provide your response in the progress notes.
Clinical Indicators:
Pt admitted with Sepsis 2/2 necrotizing fascitis scrotum /Septic shock
Progress note 01/14 ,' Confused-better than yesterdayMet with patient at the bedside. He is still very somnolent and not responsive to questions. He appears to be resting comfortably in bed and not in any acute distress. Seen with soft restraints
(untied) bilaterally in both arms due to increasing agitation over the evening. Patient was agitated with turning/repositioning. Nursing staff was trying to clean his wound dressings and the patient refused to turn and became increasingly
agitated.'
Pt care note 01/14 @1441,' Patient AOx2 (self and place) and forgetful. Patient angry, agitated, and uncooperative at times..'
Urology consult, ' Psych: Calm, Confused and Apparent Dementia..'
Based on the above, could you clarify in the Progress Notes and Discharge Summary which, if any of the following, is the most likely etiology of the confusion/altered mental status.
Metabolic Encephalopathy
Dementia with acute delirium only - indicate type fo dementia, such as Alzheimer's, senile, vascular, Lewy body etc.
Other ( please specify)
Use of terms such as suspected, likely, concern for, or probable (associated with a specific diagnosis that is being evaluated, monitored, or treated as if it exists) are acceptable and can be coded in the inpatient setting, when documented at the
time of discharge.
Thank you,
Kami Lay RN
CDI Specialist
[employer]
Please use your independent medical judgment in providing your response.
--- NOTE | 2025-01-15 09:21 | W.PN.ID1 ---
Date of Service
Date of Service: January 15, 2025
Today's Communication
- c/w vancomycin, zosyn
Assessment / Plan
Fourniers gangrene
Septic Shock
Probable Aspiration pneumonitis
- OR 01/11 scrotal exploration, drainage and debridement, excision of penile skin necrosis
- OR 01/12 second washout and debridement
- plan to return to the OR 01/15
- OR cultures in progress; few GPCs and rare GPR - no growth to date
- repeat blood cultures are in progress - no growth to date
- c/w vancomycin, zosyn
- has completed two days of clindamycin, stopped
- follow clinically
UTI - e faecalis
- covered by the zosyn
Pseudobacteremia (contaminated blood culture)
- 1 of 2 sets with S epidermidis
- no further workup indicated
Chief Complaint
-: Other (fourniers gangrene)
Subjective / Review of Systems
afebrile
pressors weaned off
social history obtained by Dr Byrne reviewed
no complaints today
Vital Signs / Physical Exam
Vital Signs
Vital Signs
Temp Pulse Resp BP Pulse Ox
98.2 F 61 10 107/83 99
01/15/25 03:27 01/15/25 08:00 01/15/25 08:00 01/15/25 08:00 01/15/25 08:00
Physical Exam
Constitutional: No Acute Distress
Cardiovascular: Regular Rate and S1/S2; Negative Murmur or Rub
Pulmonary: Clear and Symmetric; Negative Wheezes or Rales
Gastrointestinal: Soft, Non Tender, Non Distended and Normal Bowel Sounds
Skin: Warm and Dry; Negative Rash or Jaundice
Wound: Other (dressing take down deferred to urology; clean dry, intact)
Objective Data
Lab Data
Lab Results
01/15/25 03:08
01/15/25 03:08
APTT 110.7 Sec (23.4-35.0) H 01/14/25 01:01
Estimated Creat Clear 43 ml/min 01/15/25 03:08
Lactic Acid 1.7 mmol/L (0.7-2.0) 01/11/25 17:40
Total Bilirubin 0.6 mg/dl (0.2-1.3) 01/15/25 03:08
AST 22 U/L (17-59) 01/15/25 03:08
ALT 16 U/L (0-50) 01/15/25 03:08
Alkaline Phosphatase 125 U/L (38-126) 01/15/25 03:08
Most recent labs reviewed.
Micro Results:
01/13/25 05:02 Blood Culture - Preliminary
Blood/Venous No Growth in 48 hours- Final report to follow
01/13/25 03:53 Blood Culture - Preliminary
Blood/Venous No Growth in 48 hours- Final report to follow
01/11/25 09:45 Blood Culture - Preliminary
Blood/Venous Staphylococcus epidermidis
Gram Stain - Preliminary
01/11/25 10:34 Wound Culture - Preliminary
Scrotum Gram Stain - Preliminary
01/11/25 09:42 Blood Culture - Preliminary
Blood/Venous No Growth in 72 hours- Final report to follow
01/11/25 10:34 Anaerobic Culture - Preliminary
Scrotum Culture pending. Anaerobic cultures are examined after 3
days incubation. Additional information to follow.
01/11/25 17:29 MRSA Screen - Final
Nose No Methicillin Resistant Staphylococcus aureus isolated.
01/11/25 09:55 Urine Culture - Final
Urine
--- NOTE | 2025-01-15 09:49 | W.PN.HOSP.TC ---
Addendum entered and electronically signed by Selene Reagan MD 01/16/25 09:10:
Metabolic encephalopathy and delirium secondary to infection and underlying dementia
Anemia NOS
Mild hyponatremia secondary to anasarca
Addendum entered and electronically signed by Selene Reagan MD 01/15/25 17:57:
Seen and examined the patient dependently. Agree with plan formulated by the resident-discussed
84-year-old with swelling in the penis and scrotal area with discoloration
01/09/25-USS- There are moderate bilateral hydroceles and marked swelling of the scrotal wall. The testicles themselves are unremarkable.
01/11/25-CT Pelvis-surrounding the penis and extending into the adjacent peritoneum there is an air-fluid density with thickened enhancing rim suggesting infection and abscess formation. Air density also extends superiorly extending into the left
anterior pelvic wall musculature and adjacent subcutaneous soft tissues. This could be suggestive of Radames's gangrene. Filling defect within the left common femoral vein with extension into the left femoral and profunda femoris veins likely
representing DVT. As warranted consideration for further evaluation with lower extremity peripheral ultrasound. Large amount of subcutaneous edema left greater than right. Significant scrotal wall thickening and edema especially inferiorly small
to moderate bilateral hydroceles.
Confused-better than yesterday
Cardiovascular system S1-S2 appreciated
Chest clear to auscultation
Abdomen soft and nontender
Incision noted in the perineum/scrotum area packing-no bleeding noted
Anasarca and also a lot of edema on the left upper extremity
Echo 01/14/2025-normal biventricular size and systolic function without regional wall motion abnormality. EF 64%. Mild TR with mildly elevated PA pressure 38 mmHg. Pleural effusion
# Radames's gangrene
01/11/25: I&D, debridement, drainage of abscess
01/12/25: wound exploration, washout, debridement, dressing change, closure of tunica vaginalis
01/15/25: wound exploration, washout, debridement, dressing change, urethroplasty, partial wound closure, drain placement
Leukocytosis better
Continue vancomycin and Zosyn. Off Clinda.
Urine cultures from 01/10/2024 with Enterococcus faecalis
Wound cultures with and Enterococcus raffinosus and staph
ID and urology following
Pain control-continue oxycodone.
# Anasarca-will try a dose of Lasix now
# Septic shock secondary to above-resolved
# Bilateral lower extremity DVTs-heparin drip started convert to long-term anticoagulation after OR on 01/15/2025
# Anemia-hemoglobin drop noted likely hemodilution-repeat noted. 1 unit of PRBCs
# Thrombocytosis-likely secondary to infection
# Lactic acidosis resolved
# Hyperglycemia Hemoglobin A1c 5.2
# Transaminitis-likely secondary to infection-better
# Seizures-continue Dilantin
# History of CVA-continue anticoagulation
# Hypertension-Hold amlodipine
# Vitamin D deficiency-replace
# Hypothyroidism-Continue levothyroxine
# Hypoalbuminemia
# Bladder mass-status post TURBT at [facility] December 2024-Gillette catheter was placed at that time. Need to get biopsy results from [facility]
# DVT prophylaxis-Heparin
# CODE STATUS- DNR per pt preference, son aware
Discussed with nursing at bedside
Outpatient records from [facility] patient was admitted to [facility] from 12/04/2024 to 12/17/2024. He had bilateral hydronephrosis and known bladder masses. CT of the abdomen and pelvis showed small pericardial effusion severe coronary artery
atherosclerotic calcification 2 hypodense masses in the urinary bladder suspicious for malignancy as well as bilateral hydronephrosis and hydroureteronephrosis.
Labs in the ER showed creatinine of 7.05 and supratherapeutic Dilantin level 24.8. Baseline creatinine in August 2024 was 0.93. Patient was taken to the OR on 12/08/2024 had TURBT and TURP. He failed a voiding trial and was discharged with a Gillette
catheter. Plan was to follow-up with urology as outpatient. Patient also developed hospital induced delirium required [address] head showed large chronic right temporoparietal infarct no acute changes. Speech therapy recommended
pur�ed diet
time more than 50 min
Part of this note was created using voice recognition system. Occasional wrong word or��sound alike� substitutions may have inadvertently occurred due to the inherent limitations of voice recognition software. If noted kindly bring it to my
attention for correction.
Original Note:
Today's Communication/Plan
-
Appreciate ID recommendations - continue current antibiotics
Patient to go to the OR today with urology
Assessment / Plan
Assessment / Plan
HPI: Patient is an 84-year-old male with a past medical history significant for chronic indwelling Gillette catheter, CKD, hypertension, hypothyroidism, epilepsy on phenytoin, hyperlipidemia who presented to the ER after being found to have a swollen
penis for 2 days and had a necrotic 1.5 inch tissue on the scrotum in the morning of his presentation to the emergency department. 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
Assessment/Plan:
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
Leukocytosis at admission
Urology debrided the wound. Plan 4 OR again in a few days
Continue antibiotics IV hydration
Continue vancomycin and Zosyn
Clindamycin discontinued after 2 days
Follow-up on cultures
Urine cultures from 01/10/2024 with Enterococcus faecalis
ID and urology following
Patient's white blood cell count is 15.8 and downtrending on 01/14/2025
Continue oxycodone for pain control
Plan to return to OR on 01/15
-Acute nonocclusive deep venous thrombosis in both lower extremities: Unresolved/monitoring
CT pelvis conducted on 01/11/2025 showed a filling defect within the left common femoral vein with extension into the left femoral and profundus femoral veins likely representing a DVT. Further evaluation with bilateral lower extremity peripheral
ultrasound ordered
Peripheral vascular ultrasound conducted on 01/12/2025 discovered acute nonocclusive deep venous thrombosis in both lower extremities
Echocardiogram showed normal biventricular size and systolic function without regional wall motion abnormalities. Left ventricular ejection fraction 64%. Mild tricuspid regurgitation with mildly elevated pulmonary artery pressures. Pleural
effusion is present.
Continue Heparin IV for DVTs
-Senile dementia with acute delirium: Stable/monitoring
Patient lives at [facility] after being removed from his home after he was condemned due to disrepair. Patient was found in a state of poor health and the house in his whole environment was unsanitary and unsafe for habitation.
Patient continues to express sadness and a desire to end his suffering
Patient has moments of agitation which requires soft restraints for his safety and safety of staff. During a prior admission to [facility] he was also on soft restraints
Medical records requested from [facility]
-Dilutional anemia: Monitoring
hemoglobin drop noted likely hemodilution
Hemoglobin on 01/13/2025 at 3:53 was 7.2�down from 7.8 on 01/13/2025 at 00:53 - marked drop in Hb - APTT 105.8 - Repeat APTT ordered
1 unit PRBCs given on 01/13/25
Patient's hemoglobin on 01/14/2025 was found to be 6.6�an additional unit of PRBCs administered - Repeat H&H ordered to trend Hgb
Hemoglobin stable at 8.5 on 01/15/2025
-Hyponatremia: Stable/monitoring
Patient had a sodium of 131 on 01/12/25
Patient has a sodium of 134 on 01/15/2025
-Hypokalemia: Stable/monitoring
Patient was hypokalemic with a potassium of 3.3 on 01/14/25�repleted
Potassium is 4.1 on 01/15/2025
-Hypocalcemia: Stable/monitoring
Patient had a calcium of 6.9 and an albumin of 2.0 on 01/14/2025 -corrected calcium level is 8.1 which is below normal limits. Calcium repleted
Patient's calcium is 7.4 with an albumin of 2.2 on 01/15/2025orrected calcium level calculated to be 8.4
-Thrombocytosis: Stable/monitoring
likely secondary to infection
Thrombocytes within normal limits on 01/13/2025 with a value of 325
-Lactic acidosis: resolved
Patient had a lactic acid of 4.4 on 01/11/2025
Lactic acid on follow-up lab work was 1.7
-Hyperglycemia: Stable
Serum glucose was 526 on 01/12/25 -possibly secondary to acute infectious process
Hemoglobin A1c is 5.2 indicating adequate glycemic control
-Transaminitis: Resolved
AST and ALT were elevated at 204 and 51 respectively - likely secondary to infection
AST and ALT are 38 and 27 respectively on 01/13/2025�resolved
-Seizures: Stable/monitoring
continue Dilantin
-Hypertension: Stable/monitoring
Hold amlodipine
-Vitamin D deficiency: Monitoring
Repleted
-Hypothyroidism: Stable/monitoring
Continue levothyroxine
CODE STATUS: DNR
DVT Prophylaxis: Heparin IV
Imaging:
- Scrotal ultrasound conducted on 01/09/2025:
There are moderate bilateral hydroceles and marked swelling of the scrotal wall. The testicles themselves are unremarkable.
- Pelvis CT conducted on 01/11/2025:
Surrounding the penis and extending into the adjacent peritoneum, there is air and fluid density with thickened enhancing rim, suggesting infection and abscess formation. The air density also extends superiorly extending into the left anterior
pelvic wall musculature and adjacent subcutaneous soft tissues.
These findings would be suggestive of Radames's gangrene.
Filling defect within the left common femoral vein with extension into the left femoral and profunda femoris veins, very likely representing deep venous thrombosis. As warranted, consideration for further evaluation with lower extremity peripheral
venous ultrasound.
Large amount of subcutaneous edema, left greater than right.
Significant scrotal wall thickening and edema, especially inferiorly. Small to moderate bilateral hydroceles.
- Peripheral vascular ultrasound conducted on 01/12/2025:
RIGHT LOWER EXTREMITY: There is acute nonocclusive deep venous thrombosis in the right femoral vein. The right common femoral and popliteal veins appear patent. The right posterior tibial and peroneal veins were not visualized.
LEFT LOWER EXTREMITY: There is acute nonocclusive deep venous thrombosis in the left common femoral, femoral, and popliteal veins. The left peroneal and posterior tibial veins are not visualized.
- Echocardiogram conducted on 01/14/2025:
1. Normal biventricular size and systolic function without regional wall motion abnormalities. LVEF 64%.
2. Mild tricuspid regurgitation with mildly elevated pulmonary artery pressures (PASP 38 mmHg).
3. Pleural effusion present.
4. No prior study available for comparison.
Procedures:
- OR 01/11 scrotal exploration, drainage and debridement, excision of penile skin necrosis
- OR 01/12 Washout of scrotum, lower pelvic and abdominal wound cavity drainage of residual infection collection, and debridement of necrotic tissue. Closure of open tunica vaginalis of scrotum. 5 mL of estimated blood loss. No complications. 2
scrotal Clarice drains placed
Anticipated Discharge: > 48 hours
Subjective/Interval History
-
Date of Service: January 15, 2025
Met with patient at the bedside. He is calm laying in bed and offers no complaints at the present time. He asked if I am 'checking to see if I am alive' when I was auscultating the patient. Patient not talkative and only responsive to a handful
of questions asked. Patient denies any shortness of breath, chest pain, or chest tightness. The patient denies any nausea or vomiting. Patient continues to have ongoing right inguinal pain but this may be due to surgical packing done by urology.
Objective Data
-
Labs:
Laboratory Results
01/15/25 01/15/25 01/15/25
03:08 03:08 03:08
WBC 15.8 H
Hgb 8.5 L Cancelled
Hct 25.5 L Cancelled
Plt Count 299
Sodium 134 L
Potassium 4.1
Chloride 107
Carbon Dioxide 24
BUN 40 H
Creatinine 1.2
Glucose 106 H
Calcium 7.4 L
Total Bilirubin 0.6
AST 22
ALT 16
Alkaline Phosphatase 125
Vital Signs:
Vital Signs
Temp Pulse Resp BP Pulse Ox
98.2 F 61 10 107/83 99
01/15/25 03:27 01/15/25 08:00 01/15/25 08:00 01/15/25 08:00 01/15/25 08:00
I&O
01/14/25 01/15/25 01/16/25
06:59 06:59 06:59
Intake Total 3145 / 3145 2850 / 2850
Output Total 875 / 875 1050 / 1050
Balance 2270 / 2270 1800 / 1800
Review of Systems
-
Unable to obtain full review of systems at this time due to: Acuity
Abdomen/GI: Reports Pain (Pain in R inguinal area)
Psych: Reports Depressed
Physical Exam
-
General: Well Developed, Well Nourished, No Apparent Distress and Comfortable
HEENT: Normocephalic, Atraumatic and Moist Mucous Membranes
Respiratory: Clear to Auscultation
Cardiac: Regular Rhythm and S1/S2; Negative Murmur, Rub, JVD or HJR
Breast: Deferred by me
GI: Soft, Nontender, Nondistended and Normal Bowel Sounds
Rectal: Deferred by Provider
Genito-urinary: Gillette
Musculoskeletal: No Clubbing, No Cyanosis, No Edema, Edema, Right Lower Extrem (1+) and Edema, Left Lower Extrem (1+)
Skin: Warm, Dry and Normal Turgor; Negative Rash, Ulcers, Lesions or Jaundice
Neuro: Awake and Oriented
Psych: Calm
--- NOTE | 2025-01-15 10:00 | PHA.VAN.FU ---
Vancomycin Assessment / Plan
- Assessment
Renal Function: Stable
WBC's are: Stable (Steady at 15.8)
In the past 24 hrs, patient has been: Hypothermic (Tmin 96.7F)
Concomitant Antimicrobials: Zosyn
- Assessment - Therapeutic Drug Monitoring
Random Level: 19.8 (drawn approximately 16 hours post-1g dose)
- Dosing Plan
Continue: Vancomycin PRN by levels
Dosing by Level: Hold off on dosing today
- Monitoring Plan
Random Level: 01/16/25 with AM labs
- Follow Up
Pharmacy will continue to follow.
Vancomycin Follow UP
- -
Patient Age: 84
Patient Sex: Male
Vancomycin Day #: 5
Indication: Skin And Soft Tissue
Requesting Provider: Dr. Bermudez
Pertinent Antimicrobial Allergies:
no pertinent antimicrobial allergies
Height / Weight:
Height 5 ft 8 in
Actual Weight 77.1 kg
- Vital Signs / Lab Results
Temp Pulse Resp BP Pulse Ox
98.2 F 61 10 107/83 99
01/15/25 03:27 01/15/25 08:00 01/15/25 08:00 01/15/25 08:00 01/15/25 08:00
Lab Results - Hematology
01/12/25 01/13/25 01/13/25
19:11 03:53 18:30
WBC 28.4 H 32.7 H 24.9 H
01/14/25 01/15/25
05:23 03:08
WBC 15.8 H 15.8 H
Lab Results - Chemistry
01/12/25 01/13/25 01/14/25
05:01 03:53 05:23
BUN 60 H 60 H 49 H
Creatinine 1.1 1.3 1.1
Estimated Creat Clear 47 39 47
Albumin 2.3 L 2.6 L 2.0 L
01/15/25
03:08
BUN 40 H
Creatinine 1.2
Estimated Creat Clear 43
Albumin 2.2 L
Microbiology Results
01/11/25 09:42 Blood Culture - Preliminary
Blood/Venous No Growth in 4 days- Final report to follow
01/13/25 05:02 Blood Culture - Preliminary
Blood/Venous No Growth in 48 hours- Final report to follow
01/13/25 03:53 Blood Culture - Preliminary
Blood/Venous No Growth in 48 hours- Final report to follow
01/11/25 09:45 Blood Culture - Preliminary
Blood/Venous Staphylococcus epidermidis
Gram Stain - Preliminary
01/11/25 10:34 Wound Culture - Preliminary
Scrotum Gram Stain - Preliminary
01/11/25 10:34 Anaerobic Culture - Preliminary
Scrotum Culture pending. Anaerobic cultures are examined after 3
days incubation. Additional information to follow.
01/11/25 17:29 MRSA Screen - Final
Nose No Methicillin Resistant Staphylococcus aureus isolated.
Therapeutic Drug Monitoring
Random Vancomycin 19.6 ug/ml 01/15/25 03:08
--- NOTE | 2025-01-15 11:43 | PTCARENOTE ---
Verbal report given to TRADING ASSISTANT Madeleine. Patient transported to OR via transport. VSS.
--- NOTE | 2025-01-15 14:57 | CM ---
Following up on Patient. RN and Progress Notes state that patient went to the O.R with urology for another washout and still on 2 antibiotics.
PLAN: Return to [facility] when ready.
--- NOTE | 2025-01-15 15:35 | PTCARENOTE ---
Patient arrived back to IMU from package. ABD on lower abd C/D/I. Gillette draining yellow urine. IVF running per order. VSS.
--- NOTE | 2025-01-15 16:36 | W.PN.URO.CBU ---
Today's Communication / Plan
-
Maintain drains
Dressing changes
Continue abx
Assessment / Plan
-
Radames's gangrene
Severe necrotizing infection of penis, scrotum, pubic fat pad, extending to LLQ anterior pelvic wall
Breakdown of ventral bulbar urethra requiring closure
01/11/25: I&D, debridement, drainage of abscess
01/12/25: wound exploration, washout, debridement, dressing change, closure of tunica vaginalis
01/15/25: wound exploration, washout, debridement, dressing change, urethroplasty, partial wound closure, drain placement
Radames's gangrene
- Continue abx per ID
- Large scrotal and penile wound was successfully fully closed. This is high risk for wound breakdown or complication but may improve recovery and QOL
- Okay to start daily wound packing changes by nursing/wound care to the suprapubic and L inguinal incisions
- Maintain maurilio drains likely for 2-3 weeks - two at inferior scrotum, one at L inguinal region
Urethral defect
- Ventral bulbar urethral defect discovered 01/15 which was debrided and repaired primarily over the swift catheter
- High risk for poor healing and breakdown of repair
- Maintain current swift for at least 4 weeks prior to attempted change
- May need suprapubic tube if urethral access compromised
b/l DVT
- Okay to continue heparin gtt
- Can switch to longer term anticoagulation prior to discharge
Diagnosis
-
Date of Service: January 15, 2025
-
Patient Diagnosis:
Radames's gangrene
b/l DVT
Post Op Day:
01/11/25: I&D, debridement, drainage of abscess
01/12/25: wound exploration, washout, debridement, dressing change, closure of tunica vaginalis
01/15/25: wound exploration, washout, debridement, dressing change, urethroplasty, partial wound closure, drain placement
Subjective
-
N/A
Objective
-
Vital Signs
Temp Pulse Resp BP Pulse Ox
97.3 F 64 15 125/88 97
01/15/25 15:13 01/15/25 15:23 01/15/25 15:23 01/15/25 15:23 01/15/25 15:23
Intake and Output
01/14/25 01/15/25 01/16/25
06:59 06:59 06:59
Intake Total 3145 / 3145 2850 / 2850 150 / 150
Output Total 875 / 875 1050 / 1050
Balance 2270 / 2270 1800 / 1800 150 / 150
Intake:
Oral fluids 1115 / 1115 480 / 480
IV fluids (Total) 1500 / 1500 1200 / 1200 100 / 100
Normosol 100 / 100
IV piggybacks 280 / 280 670 / 670 50 / 50
Blood products 250 / 250
Blood Product Amount Infused ( 250 / 250 250 / 250
mL)
Packed Rbc Leukoreduced Unit 250 / 250
[id number]
Packed Rbc Leukoreduced Unit 0 / 0 250 / 250
[id number]
Output:
Urine, Swift 875 / 875 1050 / 1050
Laboratory Results
01/15/25 03:08
01/15/25 03:08
Physical Exam
-
General - well developed, well nourished, no acute distress
GRoinb dressings in place
Swift cloudy
--- NOTE | 2025-01-15 17:18 | PTCARENOTE ---
Confirmed with Dr. March and Dr. Reagan that it is OK to restart heparin gtt post surgery at 12/hr without bolusing prior. Heparin gtt infusing.
[2025-01-15] MEDS: LASIX 40 MG IV (18:17)
[2025-01-15] MEDS: FLOMAX 0.4 MG PO (22:56)
[2025-01-15] MEDS: ROXICODONE 5 MG PO (22:56)
[2025-01-16] VITALS (12 sets, daily range): BP systolic 92–127; BP diastolic 45–95
[2025-01-16 00:08] LABS: APTT 132.8 Sec (23.4-35.0)
[2025-01-16] MEDS: HEPARIN 25000 UNITS/250 ML IV (01:59)
--- NOTE | 2025-01-16 03:26 | PTCARENOTE ---
Pt able to make wants and needs known. Pt uncooperative with care at times, education and emotional support given. Pt wound dressing in place from OR. Dressing show drainage and are intact, reenforcement of dressing. Through out shift Pt repeating
'let me in peace', emotional support given. Assessment care and vitals as charted.
[2025-01-16] MEDS: LR 1000 IV ×3 (04:23→22:02)
[2025-01-16] MEDS: ZOSYN 50 IV ×4 (04:23→22:02)
[2025-01-16] MEDS: SYNTHROID 50 MCG PO (04:48)
[2025-01-16 05:12] LABS: Hematocrit 24.8 % (39.0-52.0); Hemoglobin 8.2 g/dL (13.0-18.0); Mean Corp Hgb Conc. 33.1 g/dL (33.0-37.0); Mean Corpuscular Volume 90.2 fL (80.0-94.0); Platelet Count 290 10^3/uL (130-400); Red Cell Dist. Width 18.5 % (11.5-14.5)
[2025-01-16 05:34] LABS: Blood Urea Nitrogen 32 mg/dl (9-20); Calcium 7.3 mg/dl (8.4-10.2); Carbon Dioxide 26 mmol/L (22-30); Chloride 106 mmol/L (98-107); Estimated Creatinine Clearance 47 ml/min; Glucose 101 mg/dl (70-99); Magnesium 1.9 mg/dl (1.6-2.3); Potassium 4.0 mmol/L (3.5-5.1); Sodium 134 mmol/L (135-145); eGFR > 60.00
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
--- NOTE | 2025-01-16 08:10 | PHA.VAN.FU ---
Vancomycin Assessment / Plan
- Assessment
Renal Function: Stable
WBC's are: Trending Down (13.6 from 15.8)
In the past 24 hrs, patient has been: Hypothermic (Tmin 96F)
Concomitant Antimicrobials: Zosyn
- Assessment - Therapeutic Drug Monitoring
Random Level: 15.1 (drawn approximately 44 hours post-1g dose)
- Dosing Plan
Continue: Vancomycin PRN by levels
Dosing by Level: Hold off on dosing today
Dosing Comments: Calculated half-life 67.7 hours
- Monitoring Plan
Random Level: 01/17/25 with AM labs
- Follow Up
Pharmacy will continue to follow.
Vancomycin Follow UP
- -
Patient Age: 84
Patient Sex: Male
Vancomycin Day #: 6
Indication: Skin And Soft Tissue
Requesting Provider: Dr. Bermudez
Pertinent Antimicrobial Allergies:
no pertinent antimicrobial allergies
Height / Weight:
Height 5 ft 8 in
Actual Weight 77.1 kg
- Vital Signs / Lab Results
Temp Pulse Resp BP Pulse Ox
96.9 F L 54 10 94/45 97
01/16/25 03:00 01/16/25 06:00 01/16/25 06:00 01/16/25 06:00 01/16/25 06:00
Lab Results - Hematology
01/13/25 01/14/25 01/15/25
18:30 05:23 03:08
WBC 24.9 H 15.8 H 15.8 H
01/16/25
04:38
WBC 13.6 H
Lab Results - Chemistry
01/14/25 01/15/25 01/16/25
05:23 03:08 04:38
BUN 49 H 40 H 32 H
Creatinine 1.1 1.2 1.1
Estimated Creat Clear 47 43 47
Albumin 2.0 L 2.2 L
Microbiology Results
01/11/25 10:34 Wound Culture - Preliminary
Scrotum Enterococcus raffinosus
Staphylococcus species
Gram Stain - Preliminary
01/13/25 05:02 Blood Culture - Preliminary
Blood/Venous No Growth in 72 hours- Final report to follow
01/13/25 03:53 Blood Culture - Preliminary
Blood/Venous No Growth in 72 hours- Final report to follow
01/11/25 10:34 Anaerobic Culture - Preliminary
Scrotum Culture pending. Anaerobic cultures are examined after 3
days incubation. Additional information to follow.
01/11/25 09:42 Blood Culture - Preliminary
Blood/Venous No Growth in 4 days- Final report to follow
01/11/25 09:45 Blood Culture - Preliminary
Blood/Venous Staphylococcus epidermidis
Gram Stain - Preliminary
Therapeutic Drug Monitoring
Random Vancomycin 15.1 ug/ml 01/16/25 04:38
[2025-01-16 08:23] LABS: APTT 116.5 Sec (23.4-35.0)
--- NOTE | 2025-01-16 08:42 | W.PN.URO.CBU ---
Today's Communication / Plan
-
Daily dressing changes
Continue antibitoics
Maintain swift
Assessment / Plan
-
Radames's gangrene
Severe necrotizing infection of penis, scrotum, pubic fat pad, extending to LLQ anterior pelvic wall
Breakdown of ventral bulbar urethra requiring closure
01/11/25: I&D, debridement, drainage of abscess
01/12/25: wound exploration, washout, debridement, dressing change, closure of tunica vaginalis
01/15/25: wound exploration, washout, debridement, dressing change, urethroplasty, partial wound closure, drain placement
Radames's gangrene
- Continue abx per ID
- Large scrotal and penile wound was successfully fully closed. This is high risk for wound breakdown or complication but may improve recovery and QOL
- Okay to start daily wound packing changes by nursing/wound care to the suprapubic and L inguinal incisions
- Maintain maurilio drains likely for 2-3 weeks - two at inferior scrotum, one at L inguinal region
Urethral defect
- Ventral bulbar urethral defect discovered 01/15 which was debrided and repaired primarily over the swift catheter
- High risk for poor healing and breakdown of repair
- Maintain current swift for at least 4 weeks prior to attempted change
- May need suprapubic tube if urethral access compromised
b/l DVT
- Okay to continue heparin gtt
- Can switch to longer term anticoagulation prior to discharge
Diagnosis
-
Date of Service: January 16, 2025
-
Patient Diagnosis:
Radames's gangrene
b/l DVT
Urethral avulsion
Post Op Day:
01/11/25: I&D, debridement, drainage of abscess
01/12/25: wound exploration, washout, debridement, dressing change, closure of tunica vaginalis
01/15/25: wound exploration, washout, debridement, dressing change, urethroplasty, partial wound closure, drain placement
Subjective
-
No events
no c/o pain
Objective
-
Vital Signs
Temp Pulse Resp BP Pulse Ox
96.9 F L 54 10 94/45 97
01/16/25 03:00 01/16/25 06:00 01/16/25 06:00 01/16/25 06:00 01/16/25 06:00
Intake and Output
01/15/25 01/16/25 01/17/25
06:59 06:59 06:59
Intake Total 2850 / 2850 1558 / 1558
Output Total 1050 / 1050 1600 / 1600
Balance 1800 / 1800 -42 / -42
Intake:
Oral fluids 480 / 480 60 / 60
IV fluids (Total) 1200 / 1200 1100 / 1100
Normosol 100 / 100
IV piggybacks 670 / 670 398 / 398
Blood products 250 / 250
Blood Product Amount Infused ( 250 / 250
mL)
Packed Rbc Leukoreduced Unit 250 / 250
[id number]
Output:
Liquid stool amount 300 / 300
Rectum 300 / 300
Urine, Swift 1050 / 1050 1300 / 1300
Laboratory Results
01/16/25 04:38
01/16/25 04:38
Physical Exam
-
General - no acute distress
Chest - unlabored
- dressings in place, wound edges perfused, swift clear urine
--- NOTE | 2025-01-16 08:50 | W.PN.ID1 ---
Date of Service
Date of Service: January 16, 2025
Today's Communication
- c/w zosyn, stop vancomycin; plan 2 week course of zosyn 01/11-01/24
Assessment / Plan
Fourniers gangrene
Septic Shock
Probable Aspiration pneumonitis
- OR 01/11 scrotal exploration, drainage and debridement, excision of penile skin necrosis
- OR 01/12 second washout and debridement, closure of tunica vaginalis
- OE 01/15/25: wound exploration, washout, debridement, urethroplasty, partial wound closure, drain placement
- scrotal wound culture e raffinosus (amp sensitive) and mssa
- repeat blood cultures are in progress - no growth to date
- c/w zosyn, stop vancomycin; plan 2 week course of zosyn 01/11-01/24
- follow clinically
UTI - e faecalis
- covered by the zosyn
Pseudobacteremia (contaminated blood culture)
- 1 of 2 sets with S epidermidis
- no further workup indicated
Chief Complaint
-: Other (fourniers gangrene)
Subjective / Review of Systems
short episodes of hypothermia, no fevers
mild hypotension this AM
had urethroplasty and partial wound closure yesterday
Vital Signs / Physical Exam
Vital Signs
Vital Signs
Temp Pulse Resp BP Pulse Ox
96.9 F L 54 10 94/45 97
01/16/25 03:00 01/16/25 06:00 01/16/25 06:00 01/16/25 06:00 01/16/25 06:00
Physical Exam
Constitutional: No Acute Distress
Cardiovascular: Regular Rate and S1/S2; Negative Murmur or Rub
Pulmonary: Clear and Symmetric; Negative Wheezes or Rales
Gastrointestinal: Soft, Non Tender, Non Distended and Normal Bowel Sounds
Skin: Warm and Dry; Negative Rash or Jaundice
Wound: Other (dressings clean, dry, intact)
Objective Data
Lab Data
Lab Results
01/16/25 04:38
01/16/25 04:38
APTT 116.5 Sec (23.4-35.0) H 01/16/25 07:55
Estimated Creat Clear 47 ml/min 01/16/25 04:38
Lactic Acid 1.7 mmol/L (0.7-2.0) 01/11/25 17:40
Total Bilirubin 0.6 mg/dl (0.2-1.3) 01/15/25 03:08
AST 22 U/L (17-59) 01/15/25 03:08
ALT 16 U/L (0-50) 01/15/25 03:08
Alkaline Phosphatase 125 U/L (38-126) 01/15/25 03:08
Most recent labs reviewed.
Micro Results:
01/11/25 10:34 Wound Culture - Preliminary
Scrotum Enterococcus raffinosus
S aureus-Methicillin Sensitive
Gram Stain - Preliminary
01/13/25 05:02 Blood Culture - Preliminary
Blood/Venous No Growth in 72 hours- Final report to follow
01/13/25 03:53 Blood Culture - Preliminary
Blood/Venous No Growth in 72 hours- Final report to follow
01/11/25 10:34 Anaerobic Culture - Preliminary
Scrotum Culture pending. Anaerobic cultures are examined after 3
days incubation. Additional information to follow.
01/11/25 09:42 Blood Culture - Preliminary
Blood/Venous No Growth in 4 days- Final report to follow
01/11/25 09:45 Blood Culture - Preliminary
Blood/Venous Staphylococcus epidermidis
Gram Stain - Preliminary
01/11/25 17:29 MRSA Screen - Final
Nose No Methicillin Resistant Staphylococcus aureus isolated.
01/11/25 09:55 Urine Culture - Final
Urine
[2025-01-16] MEDS: DILANTIN 300 MG PO (08:51)
[2025-01-16] MEDS: VITAMIN D3 (cholecalciferol) 50 MCG PO (08:51)
[2025-01-16 10:18] LABS: Albumin 2.2 g/dl (3.5-5.0)
[2025-01-16] MEDS: ROXICODONE 5 MG PO (10:55)
--- NOTE | 2025-01-16 11:24 | PTCARENOTE ---
Assumed care of patient this morning. He is oriented x2, only got month wrong for time. Patient asking if RN was 'real.' Pt also then asked if he was healed yet. When I told him it would be a while for healing he responded, 'I heal quickly.' Patient
denies any pain while laying still. Dressings remain intact with some shadowing. social science teacher to see patient today. Pt refusing breakfast and just wants to sleep. Gillette catheter and rectal trumpet maintained. Assessment, care and VS as charted.
--- NOTE | 2025-01-16 12:15 | WOUNDNOTE ---
PENIS/SCROTUM (with photo flash)
--- NOTE | 2025-01-16 12:32 | WOUNDNOTE ---
[facility] RN note: Patient admitted with Radames's gangrene, anasarca. s/p I+D debridement 01/11, wound exploration, washout, closure 01/12, wound exploration, washout, urethroplasty, partial wound closure, drain placement 01/15/25. Patient admitted from
SNF.
See H&P for complete history.
PMH: CVA, seizures, HTN, bladder mass, TURBT [facility] November or Dec 2024.
Wound Location and type/assessment: Patient has blanchable red sacrum with couple abraded skin areas suspect from silicone border adhesive. Blanchable red heels. L lateral ankle linear blanchable red area. Scrotal incision with Chadwick drain. Penis
incision. Suprapubic full thickness incisional wound to muscle with Clarice drain, pink and jarrell tissue. L inguinal full thickness incisional wound suspect to muscle with Chadwick drain, pink that can be visualized. L inguinal wound communicates to
suprapubic wound under skin. +Erythema wound L inguinal wound. Large amount of Betadine tinged serous drainage from incisional wounds. Some clotted blood on removed gauze from scrotal Clarice drain. +Anasarca.
Appetite: he did not want breakfast this am.
Pressure redistribution devices in place: Centrella Max air bed. Patient does not turn self in bed. Foam turning wedges.
Plan: NEENA Cruz premedicated patient for pain prior to wound care. NEENA Cruz assisted with wound care. Silicone border foam changed on sacrum. Foam dressing change on L heel. Patient turned to R semi side lying position with help from NEENA Cruz and
PCT Aziza. Patient yells during turning. Nursing can continue with daily wound care as ordered by Dr. March. Will follow peripherally as needed.
Note to case management of equipment requested for discharge: Air mattress if not already at SNF.
Recommend follow up at wound care center upon discharge.
--- NOTE | 2025-01-16 13:05 | WOUNDNOTE ---
Eduin texted Dr. March and Dr. Bermudez wound/incision pics noting L inguinal wound has surrounding erythema. Dr. March responded the redness is not new and he clarified packing is dry gauze (Kerlix).
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
[2025-01-16 15:06] LABS: APTT 72.2 Sec (23.4-35.0)
[2025-01-16] MEDS: HEPARIN 3100 UNITS IV (15:31)
--- NOTE | 2025-01-16 15:50 | CM ---
Chart reviewed and patient's plan is to return to [facility] facility when stable. Wound care nurse is recommending an air mattress for patient at assisted. Per admissions at [facility] patient will need Auth submitted to
insurance prior to returning to [facility], they can accept with pending Auth.
[facility]
Report [phone]
[2025-01-16 21:56] LABS: APTT > 200 Sec (23.4-35.0)
[2025-01-16] MEDS: FLOMAX 0.4 MG PO (22:02)
[2025-01-17] VITALS (12 sets, daily range): BP systolic 115–154; BP diastolic 51–89
--- NOTE | 2025-01-17 01:14 | PTCARENOTE ---
Pt had an episode of confusion during overnight shift; Pt claimed that his son was here in the hospital and that the nurses were hiding him. Pt stated that he was perfectly healthy and that we were altering his brain. Pt became agitated and started
swinging at staff. Pt did eventually accept redirection and was able to return to sleep. Will continue to monitor and assess.
[2025-01-17] MEDS: ZOSYN 50 IV ×4 (05:18→21:29)
[2025-01-17] MEDS: SYNTHROID 50 MCG PO (05:19)
[2025-01-17 06:01] LABS: APTT 57.3 Sec (23.4-35.0)
[2025-01-17 06:02] LABS: Hematocrit 25.7 % (39.0-52.0); Hemoglobin 8.3 g/dL (13.0-18.0); Mean Corp Hgb Conc. 32.3 g/dL (33.0-37.0); Mean Corpuscular Volume 91.5 fL (80.0-94.0); Platelet Count 317 10^3/uL (130-400); Red Cell Dist. Width 18.1 % (11.5-14.5)
[2025-01-17 06:13] LABS: ALT (SGPT) 12 U/L (0-50); AST (SGOT) 17 U/L (17-59); Albumin 2.2 g/dl (3.5-5.0); Alkaline Phosphatase 117 U/L (38-126); Blood Urea Nitrogen 24 mg/dl (9-20); Calcium 7.5 mg/dl (8.4-10.2); Carbon Dioxide 26 mmol/L (22-30); Chloride 107 mmol/L (98-107); Estimated Creatinine Clearance 47 ml/min; Glucose 96 mg/dl (70-99); Potassium 3.8 mmol/L (3.5-5.1); Sodium 135 mmol/L (135-145); Total Protein 5.5 g/dl (6.3-8.2); eGFR > 60.00
[2025-01-17 06:30] LABS: Vitamin D, 25-OH*** 17.3 ng/mL (30-80)
[2025-01-17] MEDS: HEPARIN 6200 UNITS IV (06:36)
[2025-01-17 07:20] LABS: Folate 5.5 ng/ml (2.76-20); Vitamin B12 > 1000 pg/ml (239-931)
--- NOTE | 2025-01-17 08:39 | W.PN.ID1 ---
Date of Service
Date of Service: January 17, 2025
Today's Communication
- plan 2 week course of zosyn 01/11-01/24
- follow clinically
Assessment / Plan
Fourniers gangrene
Septic Shock
Probable Aspiration pneumonitis
- OR 01/11 scrotal exploration, drainage and debridement, excision of penile skin necrosis
- OR 01/12 second washout and debridement, closure of tunica vaginalis
- OE 01/15/25: wound exploration, washout, debridement, urethroplasty, partial wound closure, drain placement
- scrotal wound culture e raffinosus (amp sensitive) and mssa
- repeat blood cultures are in progress - no growth to date
- plan 2 week course of zosyn 01/11-01/24
- follow clinically
UTI - e faecalis
- covered by the zosyn
Pseudobacteremia (contaminated blood culture)
- 1 of 2 sets with S epidermidis
- no further workup indicated
Chief Complaint
-: Other (fourniers gangrene)
Subjective / Review of Systems
remains afebrile
bp stable
having delirium
Vital Signs / Physical Exam
Vital Signs
Vital Signs
Temp Pulse Resp BP Pulse Ox
98.0 F 59 12 142/51 100
01/17/25 07:33 01/17/25 06:00 01/17/25 06:00 01/17/25 06:00 01/17/25 00:00
Physical Exam
Constitutional: No Acute Distress
Cardiovascular: Regular Rate and S1/S2; Negative Murmur or Rub
Pulmonary: Clear and Symmetric; Negative Wheezes or Rales
Gastrointestinal: Soft, Non Tender, Non Distended and Normal Bowel Sounds
Skin: Warm and Dry; Negative Rash or Jaundice
Objective Data
Lab Data
Lab Results
01/17/25 05:35
01/17/25 05:35
APTT 57.3 Sec (23.4-35.0) H 01/17/25 05:35
Estimated Creat Clear 47 ml/min 01/17/25 05:35
Lactic Acid 1.7 mmol/L (0.7-2.0) 01/11/25 17:40
Total Bilirubin 0.4 mg/dl (0.2-1.3) 01/17/25 05:35
AST 17 U/L (17-59) 01/17/25 05:35
ALT 12 U/L (0-50) 01/17/25 05:35
Alkaline Phosphatase 117 U/L (38-126) 01/17/25 05:35
Most recent labs reviewed.
Micro Results:
01/13/25 05:02 Blood Culture - Preliminary
Blood/Venous No Growth in 4 days- Final report to follow
01/13/25 03:53 Blood Culture - Preliminary
Blood/Venous No Growth in 4 days- Final report to follow
01/11/25 10:34 Anaerobic Culture - Preliminary
Scrotum Culture pending. Anaerobic cultures are examined after 3
days incubation. Additional information to follow.
01/11/25 09:42 Blood Culture - Final
Blood/Venous No Growth - Final Report
01/11/25 10:34 Wound Culture - Preliminary
Scrotum Enterococcus raffinosus
S aureus-Methicillin Sensitive
Gram Stain - Preliminary
01/11/25 09:45 Blood Culture - Preliminary
Blood/Venous Staphylococcus epidermidis
Gram Stain - Preliminary
01/11/25 17:29 MRSA Screen - Final
Nose No Methicillin Resistant Staphylococcus aureus isolated.
01/11/25 09:55 Urine Culture - Final
Urine
[2025-01-17] MEDS: LR 1000 IV (08:41)
--- NOTE | 2025-01-17 08:46 | PTCARENOTE ---
Patient yelling this morning, then directed towards any staff member who enters his room. Pt yelling for staff members to get out of the room and leave him alone. Patient then grabbed IV lines attached to PICC line and attempted to pull on them.
Lines freed from patient and moved away but patient continuously attempting to grab and pull on lines. TT to and , who advised will put in order for wrist restraints. VAT also notified patient was pulling on lines.
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
[2025-01-17] MEDS: HEPARIN 25000 UNITS/250 ML IV (09:32)
[2025-01-17] MEDS: VITAMIN D3 (cholecalciferol) 50 MCG PO (09:32)
[2025-01-17] MEDS: DILANTIN 300 MG PO (09:32)
[2025-01-17] MEDS: TYLENOL 650 MG PO (10:11)
--- NOTE | 2025-01-17 10:35 | CM ---
Following up on Patient. Hospitalist Notes stated that patient was aggressive today and according to the RN, patient is on soft restraints because he tried to pull his PICC LINE out. Patient is to continue heparin as well as Zosyn (for 2 weeks-
unsure if he will discharge with this), and psychiatry may be involved. Progress Notes state he discharge is greater than 48 hours. PT/OT informed CM Sanchorod the patient will not participate in Therapy, will try again.
PLAN: Return to [facility] when ready.
[2025-01-17] MEDS: LASIX 40 MG IV (12:01)
[2025-01-17] MEDS: LOVENOX 75 MG SC ×2 (12:02→21:29)
--- NOTE | 2025-01-17 12:18 | PTCARENOTE ---
Patient remains agitated. With any care, patient start yelling 'leave me alone.' Pt does attempt to grab staff, restraints maintained. Pt refusing attempt to feed him, will add ensure per . Pt will drink applejuice and has taken his pills
appropriately. Assessment, care and VS as charted.
--- NOTE | 2025-01-17 15:35 | W.PN.UPDATE ---
Update Note
Progress Note Update
pt seen by me to assess improvement. He was lying in bed, loudly asking me to release him so he can go home. Asked about this, says he is now better, the doctors have doen there job but now he is well. Asks that I release the restraints which were
put in place to prevent his dislodging swift or dressings. Insists that he does not need either of these things, or the restraints. will review agitation prns
[2025-01-17] MEDS: COUMADIN 5 MG PO (17:21)
[2025-01-17] MEDS: FLOMAX 0.4 MG PO (21:29)
[2025-01-18] VITALS (14 sets, daily range): BP systolic 110–152; BP diastolic 51–69; PULSE 60; O2SAT 100; BMI 27.5
--- NOTE | 2025-01-18 01:11 | PTCARENOTE ---
Pt calm, aaox3 with oriented conversation. Restraints untied to turn patient in bed. Pt willingly helped turn to each side and was very cooperative. Pt politely asked to leave restraints untied so he could move his arms. Restraints untied. Pt
instructed to not move his R arm where the PICC line was. Pt agreed and thanked us for letting him move his arms. Checked on pt 10 min later and his PICC line was pulled over half way out. VAT nurse notified. PICC line taken all the way out, covered
with dressing and TESS wrap. Restraints retied.
--- NOTE | 2025-01-18 01:35 | PTCARENOTE ---
New IV placed by ERP MANAGER covering for VAT team.
[2025-01-18] MEDS: VALIUM INJECTION 2 MG IV (02:14)
--- NOTE | 2025-01-18 02:30 | PTCARENOTE ---
Pt increasingly agitated d/t restraints. Yelling/screaming out. REVERSAL PRINT INSPECTOR notified via tiger text, one time order placed for IV valium. 2mg IV valium given @ 02:14 for agitation. Pt resting comfortably in bed at this time. VSS. Care ongoing.
[2025-01-18 05:38] LABS: Hematocrit 27.5 % (39.0-52.0); Hemoglobin 9.1 g/dL (13.0-18.0); Mean Corp Hgb Conc. 33.1 g/dL (33.0-37.0); Mean Corpuscular Volume 89.0 fL (80.0-94.0); Platelet Count 290 10^3/uL (130-400); Red Cell Dist. Width 18.1 % (11.5-14.5)
[2025-01-18] MEDS: SYNTHROID 50 MCG PO (05:42)
[2025-01-18] MEDS: ZOSYN 50 IV ×4 (05:42→21:34)
[2025-01-18 05:50] LABS: INR 1.31; PT 16.8 Sec (11.4-14.6)
[2025-01-18 06:08] LABS: ALT (SGPT) 13 U/L (0-50); AST (SGOT) 21 U/L (17-59); Albumin 2.6 g/dl (3.5-5.0); Alkaline Phosphatase 125 U/L (38-126); Blood Urea Nitrogen 21 mg/dl (9-20); Calcium 7.7 mg/dl (8.4-10.2); Carbon Dioxide 23 mmol/L (22-30); Chloride 108 mmol/L (98-107); Estimated Creatinine Clearance 47 ml/min; Glucose 92 mg/dl (70-99); Potassium 3.8 mmol/L (3.5-5.1); Sodium 135 mmol/L (135-145); Total Protein 6.3 g/dl (6.3-8.2); eGFR > 60.00
--- NOTE | 2025-01-18 09:11 | W.PN.ID1 ---
Date of Service
Date of Service: January 18, 2025
Today's Communication
Continue Zosyn through 01/24.
Assessment / Plan
Fourniers gangrene
s/p Septic Shock
Probable Aspiration pneumonitis
- OR 01/11 scrotal exploration, drainage and debridement, excision of penile skin necrosis
- OR 01/12 second washout and debridement, closure of tunica vaginalis
- OE 01/15/25: wound exploration, washout, debridement, urethroplasty, partial wound closure, drain placement
- scrotal wound culture e raffinosus (amp sensitive) and mssa
- repeat blood cultures are in progress - no growth to date
- Continue 2 week course of zosyn 01/11-01/24
- follow clinically
UTI - e faecalis
- covered by the zosyn
Pseudobacteremia (contaminated blood culture)
- 1 of 2 sets with S epidermidis
- no further workup indicated
Chief Complaint
-: Other (fourniers gangrene)
Vital Signs / Physical Exam
Vital Signs
Vital Signs
Temp Pulse Resp BP Pulse Ox
97.2 F 58 12 129/59 99
01/18/25 07:33 01/18/25 06:05 01/18/25 06:05 01/18/25 06:05 01/18/25 06:05
Physical Exam
Constitutional: No Acute Distress and Comfortable
Cardiovascular: Regular Rate and S1/S2
Pulmonary: Clear
Gastrointestinal: Soft, Non Tender, Non Distended, Normal Bowel Sounds and Other (FMS light brown loose stool)
Extremities: Negative Edema
Objective Data
Lab Data
Lab Results
01/18/25 05:28
01/18/25 05:28
PT 16.8 Sec (11.4-14.6) H 01/18/25 05:30
INR 1.31 01/18/25 05:30
APTT Cancelled 01/17/25 12:30
Estimated Creat Clear 47 ml/min 01/18/25 05:28
Lactic Acid 1.7 mmol/L (0.7-2.0) 01/11/25 17:40
Total Bilirubin 0.6 mg/dl (0.2-1.3) 01/18/25 05:28
AST 21 U/L (17-59) 01/18/25 05:28
ALT 13 U/L (0-50) 01/18/25 05:28
Alkaline Phosphatase 125 U/L (38-126) 01/18/25 05:28
Most recent labs reviewed.
Micro Results:
01/13/25 05:02 Blood Culture - Final
Blood/Venous No Growth - Final Report
01/13/25 03:53 Blood Culture - Final
Blood/Venous No Growth - Final Report
01/11/25 10:34 Wound Culture - Final
Scrotum Enterococcus raffinosus
S aureus-Methicillin Sensitive
Gram Stain - Final
01/11/25 10:34 Anaerobic Culture - Final
Scrotum NO ANAEROBES ISOLATED
01/11/25 09:42 Blood Culture - Final
Blood/Venous No Growth - Final Report
01/11/25 09:45 Blood Culture - Preliminary
Blood/Venous Staphylococcus epidermidis
Gram Stain - Preliminary
01/11/25 17:29 MRSA Screen - Final
Nose No Methicillin Resistant Staphylococcus aureus isolated.
01/11/25 09:55 Urine Culture - Final
Urine
[2025-01-18] MEDS: FLUSH (NSS) 1 FLUSH IV ×2 (10:04→11:40)
[2025-01-18] MEDS: LOVENOX 75 MG SC ×2 (11:30→19:04)
[2025-01-18] MEDS: DILANTIN 300 MG PO (11:30)
[2025-01-18] MEDS: VITAMIN D3 (cholecalciferol) 50 MCG PO (11:32)
[2025-01-18] MEDS: LASIX 40 MG IV (11:40)
--- NOTE | 2025-01-18 13:32 | W.PN.URO.CBU ---
Today's Communication / Plan
-
Continue abx
Routine daily packing changes of Suprapubic and L inguinal wounds by nursing
Maintain maurilio drains
Trend wound healing
Maintain swift
Assessment / Plan
-
Radames's gangrene
Severe necrotizing infection of penis, scrotum, pubic fat pad, extending to LLQ anterior pelvic wall
Breakdown of ventral bulbar urethra requiring closure
01/11/25: I&D, debridement, drainage of abscess
01/12/25: wound exploration, washout, debridement, dressing change, closure of tunica vaginalis
01/15/25: wound exploration, washout, debridement, dressing change, urethroplasty, partial wound closure, drain placement
Radames's gangrene
- Continue abx per ID
- Large scrotal and penile wound was successfully fully closed. This is high risk for wound breakdown or complication but may improve recovery and QOL
- Okay to start daily wound packing changes by nursing/wound care to the suprapubic and L inguinal incisions
- Maintain maurilio drains - two at inferior scrotum, one at L inguinal region. Will reassess for removal possibly early next week
Urethral defect
- Ventral bulbar urethral defect discovered 01/15 which was debrided and repaired primarily over the swift catheter
- High risk for poor healing and breakdown of repair
- Maintain current swift for at least 4 weeks prior to attempted change
- May need suprapubic tube if urethral access compromised
b/l DVT
- Okay to continue heparin
- Can switch to oral anticoagulation per primary team
Diagnosis
-
Date of Service: January 18, 2025
-
Patient Diagnosis:
Radames's gangrene
b/l DVT
Urethral avulsion
Post Op Day:
01/11/25: I&D, debridement, drainage of abscess
01/12/25: wound exploration, washout, debridement, dressing change, closure of tunica vaginalis
01/15/25: wound exploration, washout, debridement, dressing change, urethroplasty, partial wound closure, drain placement
Subjective
-
No events
Objective
-
Vital Signs
Temp Pulse Resp BP Pulse Ox
97.2 F 58 12 129/59 99
01/18/25 07:33 01/18/25 06:05 01/18/25 06:05 01/18/25 06:05 01/18/25 06:05
Intake and Output
01/17/25 01/18/25 01/19/25
06:59 06:59 06:59
Intake Total 1660 / 1660 530 / 530
Output Total 1000 / 1000 900 / 900 475 / 475
Balance 660 / 660 -900 / -900 55 / 55
Intake:
Oral fluids 360 / 360 480 / 480
IV fluids (Total) 1200 / 1200
IV piggybacks 100 / 100 50 / 50
Output:
Urine, Swift 500 / 500 900 / 900 475 / 475
Urine, Voided 500 / 500
Laboratory Results
01/18/25 05:28
01/18/25 05:28
Physical Exam
-
General - well developed, well nourished, no acute distress
Chest - clear bilaterally
Abdomen - soft, non-tender
Incisions c/d/i and well healing
Minimal drainage from maurilio
--- NOTE | 2025-01-18 13:51 | PN.CDI ---
CDI
- -
CDI:
Physician Documentation Request
Admit Date: 01/11/25 14:52
Dear Doctor Anca,
Please review the following and provide your response in the progress notes.
Clinical Indicators:
Pt admitted with Sepsis 2/2 necrotizing fascitis scrotum /Septic shock
Documented per 01/15 operative report, ' Minimal residual necrotic tissue from wound surfaces debrided...A light debridement of the tissue was done and healthy bleeding edges of the corpus spongiosum were identified....'
Could you provide, in the progress notes further clarification regarding the debridement.
Please specify the type of debridement performed:
1. Excisional Debridement - defined as removal by excision of devitalized tissue, necrosis or slough
2. Non-excisional debridement - defined as removal of devitalized tissue, necrosis or slough by such methods as irrigation, brushing, scrubbing or washing.
If the debridement was excisional, please also include:
1. Type of instrument used (#11 blade, #15 blade etc.)
For excisional or non-excisional, please also include:
1. Depth of debridement (skin, subcutaneous tissue, fascia, muscle, bone etc)
2. Size and appearance of the wound (L, W, D, color of wound, drainage)
Use of terms such as suspected, likely, concern for, or probable (associated with a specific diagnosis that is being evaluated, monitored, or treated as if it exists) are acceptable and can be coded in the inpatient setting, when documented at the
time of discharge.
Thank you,
Kami Lay RN
CDI Specialist
[facility]
Please use your independent medical judgment in providing your response.
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
--- NOTE | 2025-01-18 15:44 | CM ---
Following up on Patient. Hospitalist Progress notes states that if his P.O intake improves, will consider taking him off restraints for then PICC for IV Abx back at the facility, but if not, then might consider Hospice.
PLAN: TBD, Return to [facility] vs. Hospice.
--- NOTE | 2025-01-18 16:00 | PTCARENOTE ---
Patient has a continued need for wrists restraints for protection of tubes and IV'S. Patient confused to his medical condition. Patient has intermittent periods of agitation and uncooperative to nursing care. Most of the time he wants to be left
alone. Patient has a poor appetite, he is not interested in eating any solid food. He is however taking in his ensure supplement drink and juice. He will take his oral medications whole in juice. Rectal trumpet in place for liquid stools.
Chronic swift catheter. Pain controlled during this day shift. VS stable.
--- NOTE | 2025-01-18 16:05 | W.PN.UPDATE ---
Update Note
Progress Note Update
pt seen soke with RN. continues to try to remove PICC and swift when hands are not restrained. calling out for us to come release him, wants scissors. states that he does not believe that he still needs to be here. would consider low dose of
depakote to help with agitation (had run of v tach earlier during hospital stay, will need to stay away from antipsychotics)
250 bid depakote if ok with primary team
[2025-01-18] MEDS: COUMADIN 5 MG PO (17:16)
[2025-01-18] MEDS: ROXICODONE 5 MG PO (19:03)
--- NOTE | 2025-01-18 19:12 | PTCARENOTE ---
Pt c/o 'all over pain.' Unable to describe or rate pain. Medicated with pain med as ordered without difficulty. Remains in B/L soft limb wrist restraints at this time. Continuously asks for sharp knife to cut restraints off. Temp 97.5. Repositioned
at this time. Call gupta remains within reach. Will continue to monitor.
[2025-01-18] MEDS: DEPAKOTE (12 HR RELEASE) 250 MG PO (19:32)
[2025-01-18] MEDS: FLOMAX 0.4 MG PO (21:34)
[2025-01-19] VITALS (12 sets, daily range): BP systolic 124–169; BP diastolic 57–79; BMI 26.7
[2025-01-19 03:57] LABS: Hematocrit 28.8 % (39.0-52.0); Hemoglobin 9.3 g/dL (13.0-18.0); Mean Corp Hgb Conc. 32.3 g/dL (33.0-37.0); Mean Corpuscular Volume 89.4 fL (80.0-94.0); Platelet Count 300 10^3/uL (130-400); Red Cell Dist. Width 18.1 % (11.5-14.5)
[2025-01-19 04:09] LABS: INR 2.09; PT 23.6 Sec (11.4-14.6)
[2025-01-19 04:20] LABS: ALT (SGPT) 13 U/L (0-50); AST (SGOT) 20 U/L (17-59); Albumin 2.6 g/dl (3.5-5.0); Alkaline Phosphatase 137 U/L (38-126); Blood Urea Nitrogen 18 mg/dl (9-20); Calcium 7.5 mg/dl (8.4-10.2); Carbon Dioxide 26 mmol/L (22-30); Chloride 105 mmol/L (98-107); Estimated Creatinine Clearance 51 ml/min; Glucose 93 mg/dl (70-99); Potassium 3.5 mmol/L (3.5-5.1); Sodium 136 mmol/L (135-145); Total Protein 6.3 g/dl (6.3-8.2); eGFR > 60.00
[2025-01-19] MEDS: SYNTHROID 50 MCG PO (05:25)
[2025-01-19] MEDS: ZOSYN 50 IV ×4 (05:25→21:05)
[2025-01-19] MEDS: FLUSH (NSS) 2 FLUSH IV ×2 (05:26→21:05)
--- NOTE | 2025-01-19 08:27 | PTCARENOTE ---
Patient received from measurement operator. Patient resting comfortably in bed. No events noted overnight. No complaints of pain at this time. AAO, VSS. Surgical sites on lower abdomen, open and unapproximated. Scrotal site intact. Dressing with
drainage, to be changed. Chronic swift. Rectal trumpet. Currently on room air. No testing scheduled at this time. Call gupta in reach.
--- NOTE | 2025-01-19 09:19 | W.PN.UPDATE ---
Update Note
Progress Note Update
HPI: 84-year-old M p/w swelling in the penile and scrotal area with discoloration
01/09/25-USS- There are moderate bilateral hydroceles and marked swelling of the scrotal wall. The testicles themselves are unremarkable.
01/11/25-CT Pelvis-surrounding the penis and extending into the adjacent peritoneum there is an air-fluid density with thickened enhancing rim suggesting infection and abscess formation. Air density also extends superiorly extending into the left
anterior pelvic wall musculature and adjacent subcutaneous soft tissues. This could be suggestive of Radames's gangrene. Filling defect within the left common femoral vein with extension into the left femoral and profunda femoris veins likely
representing DVT. As warranted consideration for further evaluation with lower extremity peripheral ultrasound. Large amount of subcutaneous edema left greater than right. Significant scrotal wall thickening and edema especially inferiorly small
to moderate bilateral hydroceles.
Echo 01/14/2025-normal biventricular size and systolic function without regional wall motion abnormality. EF 64%. Mild TR with mildly elevated PA pressure 38 mmHg. Pleural effusion
A/P:
# Radames's gangrene s/p several surgeries
# Septic shock secondary to above-resolved
# Lactic acidosis, resolved
01/11/25: I&D, debridement, drainage of abscess
01/12/25: wound exploration, washout, debridement, dressing change, closure of tunica vaginalis
01/15/25: wound exploration, washout, debridement, dressing change, urethroplasty, partial wound closure, drain placement
Leukocytosis has resolved
Urine cultures from 01/10/2024 grew Enterococcus faecalis
Wound cultures grew Enterococcus raffinosus and MSSA
Continue Abx, now on Zosyn only through 01/24. Off Clinda and off vanco
ID and urology following
Pain control with oxycodone.
Cont current restraint for protective measures (pt had pulled IV line out for Abx)
# Anasarca- s/p PRN lasix
# Bilateral lower extremity DVTs
Patient cannot get Eliquis with Dilantin
s/p heparin drip, off Lovenox with therapeutic INR on Coumadin.
Monitor daily INR and adjusting Coumadin
# Anemia NOS, status post 2 units of packed red blood cells
# Thrombocytosis likely secondary to infection- resolved
# Hyperglycemia
Hemoglobin A1c 5.2
# Transaminitis, likely secondary to infection, resolved
# Seizures
continue Dilantin
# History of CVA
continue anticoagulation
# Hypertension
Off [employer] amlodipine. Monitor Blood pressure
# Vitamin D deficiency
replace
# Hypothyroidism
Continue levothyroxine
# Mild protein calorie malnutrition 2/2 poor p.o. intake.
Currently on Pureed diet with supplement
Patient refuses to eat. Psychiatry consulted
# Known bladder mass
status post TURBT at [facility] December 2024
Gillette catheter was placed at that time. Need to get biopsy results from [facility], [facility]
follow-up with urology as outpatient.
DVT prophylaxis- Coumadin with daily INR
CODE STATUS- DNR per pt preference, son aware
Dispo: return to [facility] vs. Hospice if pt fails to improve
total time > 51 min
[2025-01-19] MEDS: LOVENOX SC (09:36)
[2025-01-19] MEDS: DILANTIN 300 MG PO (09:56)
[2025-01-19] MEDS: DEPAKOTE (12 HR RELEASE) 250 MG PO ×2 (09:56→21:05)
[2025-01-19] MEDS: VITAMIN D3 (cholecalciferol) 50 MCG PO (09:57)
--- NOTE | 2025-01-19 10:18 | W.PN.URO.CBU ---
Today's Communication / Plan
-
improved no more obvious devitalized areas no new debridemnt will go home at some point with folet
Assessment / Plan
-
Radames's gangrene
Severe necrotizing infection of penis, scrotum, pubic fat pad, extending to LLQ anterior pelvic wall
Breakdown of ventral bulbar urethra requiring closure
01/11/25: I&D, debridement, drainage of abscess
01/12/25: wound exploration, washout, debridement, dressing change, closure of tunica vaginalis
01/15/25: wound exploration, washout, debridement, dressing change, urethroplasty, partial wound closure, drain placement
Radames's gangrene
- Continue abx per ID
- Large scrotal and penile wound was successfully fully closed. This is high risk for wound breakdown or complication but may improve recovery and QOL
- Okay to start daily wound packing changes by nursing/wound care to the suprapubic and L inguinal incisions
- Maintain maurilio drains - two at inferior scrotum, one at L inguinal region. Will reassess for removal possibly early next week
Urethral defect
- Ventral bulbar urethral defect discovered 01/15 which was debrided and repaired primarily over the swift catheter
- High risk for poor healing and breakdown of repair
- Maintain current swift for at least 4 weeks prior to attempted change
- May need suprapubic tube if urethral access compromised
b/l DVT
- Okay to continue heparin
- Can switch to oral anticoagulation per primary team
Diagnosis
-
Date of Service: January 19, 2025
-
Patient Diagnosis:
Post Op Day:
Patient Diagnosis:
Radames's gangrene
b/l DVT
Urethral avulsion
Post Op Day:
01/11/25: I&D, debridement, drainage of abscess
01/12/25: wound exploration, washout, debridement, dressing change, closure of tunica vaginalis
01/15/25: wound exploration, washout, debridement, dressing change, urethroplasty, partial wound closure, drain placement
Subjective
-
feeling hadley wants to go home
Objective
-
Vital Signs
Temp Pulse Resp BP Pulse Ox
97.6 F 52 13 155/59 99
01/19/25 07:35 01/19/25 08:00 01/19/25 08:00 01/19/25 08:00 01/19/25 04:00
Intake and Output
01/18/25 01/19/25 01/20/25
06:59 06:59 06:59
Intake Total 1305 / 1305
Output Total 900 / 900 2775 / 2775
Balance -900 / -900 -1470 / -1470
Intake:
Oral fluids 1105 / 1105
IV piggybacks 200 / 200
Output:
Liquid stool amount 200 / 200
Rectum 200 / 200
Urine, Swift 900 / 900 2575 / 2575
Laboratory Results
01/19/25 03:19
01/19/25 03:19
Physical Exam
-
General - well developed, well nourished, no acute distress
Chest - clear bilaterally
Abdomen - soft, non-tender, positive bowel sounds, no CVAT, no incisional pain or distention
Genitalia - normal
Rectal - normal
Skin - warm & dry with no rash
Neuro - AOx3, no motor deficits
Extremities - no clubbing, no cyanosis, no edema
Incision - clean, dry
Dressing - clean, dry, intact
Care Review
Data Reviewed
Discussed with: Hospitalist and Nursing
--- NOTE | 2025-01-19 13:03 | W.PN.HOSP.TC ---
Today's Communication/Plan
-
Continue soft restraint
IV Lasix 1 dose
Ensure supplementation
TPN if needed
Assessment / Plan
Assessment / Plan
HPI: 84-year-old male with PMHx significant for chronic indwelling Gillette catheter (unknown cause), CKD (unknown stage), hypertension, hypothyroidism, epilepsy (unknown type seizure disorder) on phenytoin, hyperlipidemia presents to the ER from
long-term facility for evaluation of possible foreign years gangrene.
Assessment/Plan:
Septic shock secondary to Radames's gangrene-
Associated with lactic acidosis, resolved.
Radames's gangrene s/p multiple surgeries
Leukocytosis and lactate levels upon admission, s/p multiple wound debridements and wound dressings.
I&D, debridement and drainage of abscess on 01/11/2025
Wound exploration, washout, debridement, dressing change and closure of tunica vaginalis on 01/12
Along with all of the above ureteroplasty, partial wound closure and drain placement on 01/15/2025.
Urine cultures-Enterococcus faecalis
Wound culture-Enterococcus and MSSA.
Vancomycin and clindamycin discontinued as there is no evidence for MRSA .
Wound culture polymicrobial, ID on board, continue Zosyn per ID through 01/24.
Urology on board, helping with wound debridements and reconstruction, appreciate urology's help in managing the patient.
Optimal pain control
Bilateral lower extremity DVTs-
Eliquis and Dilantin cannot be given together.
S/p heparin drip, baseline patient is on warfarin for DVT.
Currently patient is on bridge therapy, Lovenox discontinued.
Zosyn and warfarin, higher chance of INR to be supratherapeutic.
Dose reduced to 2 mg warfarin.
Follow INR levels in the AM.
Questionable anasarca-
Currently on as needed Lasix.
Essential hypertension-
Currently patient off of amlodipine
Monitor blood pressure.
Hypothyroidism-
Continue levothyroxine.
Seizure disorder-
Initial history of supratherapeutic Dilantin levels.
Dilantin was held for 2 days, and resumed again.
Currently on home dose Dilantin regiment.
Check Dilantin levels if warranted.
Protein calorie malnutrition secondary to poor oral intake
Patient recurrently refuses to eat, psychiatry consulted.
Currently on pur�ed diet with Ensure supplement.
Agitation, and delirium-
Psych following, started him on Depakote.
Deemed to be incompetent and decision making.
Son is a point of contact. Currently patient is in soft restraints.
Pulled PICC line from one of the arms, has 1 more PICC line access.
Anemia-
Likely alcohol fluids of dilutional and anemia of chronic disease.
S/p 1 unit of packed RBCs
Hemoglobin stable at 9.3.
MDD-
X 6 years
Psychiatry following, does not recommend any antidepressants at this point of time.
Hyponatremia-
Resolved
Monitor serum sodium levels
Hypocalcemia-
Corrected serum calcium today at 8.6, normal, continue to follow calcium and protein levels
Hyper albuminuria-
Secondary to mild protein calorie malnutrition
Thrombocytosis-
Likely reactive from infection
Transaminitis-
AST and ALT upon admission were 204 and 51,
Resolved
Impaired glucose tolerance-
Hemoglobin A1c at 5.2
Q Accu-Cheks if and when needed
CODE STATUS: DNR
DVT Prophylaxis: On warfarin
Imaging:
- Scrotal ultrasound conducted on 01/09/2025:
There are moderate bilateral hydroceles and marked swelling of the scrotal wall. The testicles themselves are unremarkable.
- Pelvis CT conducted on 01/11/2025:
Surrounding the penis and extending into the adjacent peritoneum, there is air and fluid density with thickened enhancing rim, suggesting infection and abscess formation. The air density also extends superiorly extending into the left anterior
pelvic wall musculature and adjacent subcutaneous soft tissues.
These findings would be suggestive of Radames's gangrene.
Filling defect within the left common femoral vein with extension into the left femoral and profunda femoris veins, very likely representing deep venous thrombosis. As warranted, consideration for further evaluation with lower extremity peripheral
venous ultrasound.
Large amount of subcutaneous edema, left greater than right.
Significant scrotal wall thickening and edema, especially inferiorly. Small to moderate bilateral hydroceles.
- Peripheral vascular ultrasound conducted on 01/12/2025:
RIGHT LOWER EXTREMITY: There is acute nonocclusive deep venous thrombosis in the right femoral vein. The right common femoral and popliteal veins appear patent. The right posterior tibial and peroneal veins were not visualized.
LEFT LOWER EXTREMITY: There is acute nonocclusive deep venous thrombosis in the left common femoral, femoral, and popliteal veins. The left peroneal and posterior tibial veins are not visualized.
- Echocardiogram conducted on 01/14/2025:
1. Normal biventricular size and systolic function without regional wall motion abnormalities. LVEF 64%.
2. Mild tricuspid regurgitation with mildly elevated pulmonary artery pressures (PASP 38 mmHg).
3. Pleural effusion present.
4. No prior study available for comparison.
Anticipated Discharge: > 48 hours
Subjective/Interval History
-
Date of Service: January 19, 2025
Although patient's mentation significantly improved, patient states that he is healthy as a horse, denies having any oral medications and repeatedly insists on leaving the hospital as he does not require any further treatment.
Objective Data
-
Labs:
Laboratory Results
01/19/25
03:19
WBC 7.1
Hgb 9.3 L
Hct 28.8 L
Plt Count 300
PT 23.6 H
INR 2.09
Sodium 136
Potassium 3.5
Chloride 105
Carbon Dioxide 26
BUN 18
Creatinine 1.0
Glucose 93
Calcium 7.5 L
Total Bilirubin 0.4
AST 20
ALT 13
Alkaline Phosphatase 137 H
Vital Signs:
Vital Signs
Temp Pulse Resp BP Pulse Ox
98.0 F 50 12 162/63 95
01/19/25 11:28 01/19/25 12:00 01/19/25 12:00 01/19/25 12:00 01/19/25 10:45
I&O
01/18/25 01/19/25 01/20/25
06:59 06:59 06:59
Intake Total 1305 / 1305
Output Total 900 / 900 2775 / 2775
Balance -900 / -900 -1470 / -1470
Review of Systems
-
History Source: Patient
All other systems: Reviewed and negative
Physical Exam
-
General: No Apparent Distress, Comfortable and Other (In soft restraints, agitated.)
HEENT: Moist Mucous Membranes and PERRLA
Respiratory: Clear to Auscultation; Negative Wheezes, Rales, Rhonchi or Crackles
Cardiac: Regular Rhythm and S1/S2; Negative Murmur, Rub or Gallop
GI: Soft, Nontender, Nondistended and Normal Bowel Sounds
[2025-01-19] MEDS: LASIX 20 MG IV (13:26)
[2025-01-19] MEDS: NSS (PRESERVATIVE FREE) 10 ML IV (13:27)
[2025-01-19] MEDS: PROTONIX IV 40 MG IV (13:27)
--- NOTE | 2025-01-19 15:00 | W.PN.UPDATE ---
Update Note
Progress Note Update
Pt seen at bedside, chart reviewed, discussed with nursing. Appears that agitation overall may have improved since starting depakote 250mg BID, is not actively agitated or aggressive, staff seems better able to meaningfully interact with him -
however does continue to insist he is ready to leave and does not need IV/catheter/etc. Remains risk to self if restraints are removed as can still be seen trying to grab at lines when an opportunity presents itself.
Attempted to interview pt - he asked if I'm there to remove the restraint and when I attempted to explain to him my role and reason for restraints, pt turned head away and did not want to continue engaging in conversation/interview.
Continue depakote 250mg BID, check level 01/23
- appears to be helping to some degree,pt only received 2 doses thus far so would monitor for the time being, will reasses tomorrow
[2025-01-19] MEDS: COUMADIN 2 MG PO (18:01)
[2025-01-19] MEDS: FLOMAX 0.4 MG PO (21:05)
[2025-01-20] VITALS (14 sets, daily range): BP systolic 108–166; BP diastolic 51–96; BMI 26.9
[2025-01-20] MEDS: FLUSH (NSS) 2 FLUSH IV (04:32)
[2025-01-20] MEDS: ZOSYN 50 IV ×3 (04:32→15:34)
[2025-01-20] MEDS: SYNTHROID 50 MCG PO (04:33)
[2025-01-20] MEDS: DEPAKOTE (12 HR RELEASE) 250 MG PO ×2 (07:41→20:25)
[2025-01-20] MEDS: DILANTIN 300 MG PO (07:41)
[2025-01-20] MEDS: LASIX 20 MG IV (07:42)
[2025-01-20] MEDS: NSS (PRESERVATIVE FREE) 10 ML IV (07:42)
[2025-01-20] MEDS: VITAMIN D3 (cholecalciferol) 50 MCG PO (07:42)
[2025-01-20] MEDS: PROTONIX IV 40 MG IV (07:42)
--- NOTE | 2025-01-20 07:56 | W.PN.HOSP.TC ---
Today's Communication/Plan
-
Continue IV antibiotics per ID.
Continue IV Lasix, monitor daily weights.
Patient with improved oral intake today.
Stable labs. Hold warfarin in the p.m. today
Discharge on 01/24.
Assessment / Plan
Assessment / Plan
HPI: 84-year-old male with PMHx significant for chronic indwelling Gillette catheter (unknown cause), CKD (unknown stage), hypertension, hypothyroidism, epilepsy (unknown type seizure disorder) on phenytoin, hyperlipidemia presents to the ER from
long-term facility for evaluation of possible foreign years gangrene.
Assessment/Plan:
Septic shock secondary to Radames's gangrene-
Associated with lactic acidosis, resolved.
Radames's gangrene s/p multiple surgeries
Leukocytosis and lactate levels upon admission, s/p multiple wound debridements and wound dressings.
I&D, debridement and drainage of abscess on 01/11/2025
Wound exploration, washout, debridement, dressing change and closure of tunica vaginalis on 01/12
Along with all of the above ureteroplasty, partial wound closure and drain placement on 01/15/2025.
Urine cultures-Enterococcus faecalis
Wound culture-Enterococcus and MSSA.
Vancomycin and clindamycin discontinued as there is no evidence for MRSA .
Wound culture polymicrobial, ID on board, continue Zosyn per ID through 01/24.
Urology on board, helping with wound debridements and reconstruction, appreciate urology's help in managing the patient.
Optimal pain control
Bilateral lower extremity DVTs-
Eliquis and Dilantin cannot be given together.
S/p heparin drip, baseline patient is on warfarin for DVT.
Currently patient is on bridge therapy, Lovenox discontinued.
Zosyn and warfarin, higher chance of INR to be supratherapeutic.
2 mg warfarin-01/19/2025
INR at 3.09, hold warfarin today.
Questionable anasarca-
Currently on as needed Lasix.
Essential hypertension-
Currently patient off of amlodipine
Monitor blood pressure.
Hypothyroidism-
Continue levothyroxine.
Seizure disorder-
Initial history of supratherapeutic Dilantin levels.
Dilantin was held for 2 days, and resumed again.
Currently on home dose Dilantin regiment.
Check Dilantin levels if warranted.
Acute-protein calorie malnutrition
Likely a confluence of acute illness and decreased oral intake
Whittington criteria-moderate acute, moderate edema in arms and legs,
Less than 50% oral intake in the last 1 week, mild muscle wasting in the temples.
Patient recurrently refuses to eat, psychiatry consulted.
Currently on pur�ed diet with Ensure supplement.
Agitation, and delirium-
Psych following, started him on Depakote.
Deemed to be incompetent and decision making.
Son is a point of contact. Currently patient is in soft restraints.
Pulled PICC line from one of the arms, has 1 more PICC line access.
Anemia-
Likely alcohol fluids of dilutional and anemia of chronic disease.
S/p 1 unit of packed RBCs
Hemoglobin stable at 9.3.
MDD-
X 6 years
Psychiatry following, does not recommend any antidepressants at this point of time.
Hyponatremia-
Resolved
Monitor serum sodium levels
Hypocalcemia-
Corrected serum calcium today at 8.6, normal, continue to follow calcium and protein levels
Hypoalbuminuria-
Secondary to mild protein calorie malnutrition
Thrombocytosis-
Likely reactive from infection
Transaminitis-
AST and ALT upon admission were 204 and 51,
Resolved
Impaired glucose tolerance-
Hemoglobin A1c at 5.2
Q Accu-Cheks if and when needed
CODE STATUS: DNR
DVT Prophylaxis: On warfarin
Imaging:
- Scrotal ultrasound conducted on 01/09/2025:
There are moderate bilateral hydroceles and marked swelling of the scrotal wall. The testicles themselves are unremarkable.
- Pelvis CT conducted on 01/11/2025:
Surrounding the penis and extending into the adjacent peritoneum, there is air and fluid density with thickened enhancing rim, suggesting infection and abscess formation. The air density also extends superiorly extending into the left anterior
pelvic wall musculature and adjacent subcutaneous soft tissues.
These findings would be suggestive of Radames's gangrene.
Filling defect within the left common femoral vein with extension into the left femoral and profunda femoris veins, very likely representing deep venous thrombosis. As warranted, consideration for further evaluation with lower extremity peripheral
venous ultrasound.
Large amount of subcutaneous edema, left greater than right.
Significant scrotal wall thickening and edema, especially inferiorly. Small to moderate bilateral hydroceles.
- Peripheral vascular ultrasound conducted on 01/12/2025:
RIGHT LOWER EXTREMITY: There is acute nonocclusive deep venous thrombosis in the right femoral vein. The right common femoral and popliteal veins appear patent. The right posterior tibial and peroneal veins were not visualized.
LEFT LOWER EXTREMITY: There is acute nonocclusive deep venous thrombosis in the left common femoral, femoral, and popliteal veins. The left peroneal and posterior tibial veins are not visualized.
- Echocardiogram conducted on 01/14/2025:
1. Normal biventricular size and systolic function without regional wall motion abnormalities. LVEF 64%.
2. Mild tricuspid regurgitation with mildly elevated pulmonary artery pressures (PASP 38 mmHg).
3. Pleural effusion present.
4. No prior study available for comparison.
Anticipated Discharge: > 48 hours
Subjective/Interval History
-
Date of Service: January 20, 2025
Patient is awake alert and oriented, agitated overnight but is cooperative.
Objective Data
-
Labs:
Laboratory Results
01/20/25
06:00
WBC Pending
Hgb Pending
Hct Pending
Plt Count Pending
PT Pending
INR Pending
Sodium Pending
Potassium Pending
Chloride Pending
Carbon Dioxide Pending
BUN Pending
Creatinine Pending
Glucose Pending
Calcium Pending
Total Bilirubin Pending
AST Pending
ALT Pending
Alkaline Phosphatase Pending
Vital Signs:
Vital Signs
Temp Pulse Resp BP Pulse Ox
97 F 63 23 124/74 97
01/20/25 04:00 01/20/25 07:42 01/20/25 06:00 01/20/25 07:42 01/20/25 05:59
I&O
01/19/25 01/20/25 01/21/25
06:59 06:59 06:59
Intake Total 1305 / 1305 200 / 200
Output Total 2775 / 2775 1450 / 1450
Balance -1470 / -1470 -1250 / -1250
Review of Systems
-
History Source: Patient
All other systems: Reviewed and negative
Physical Exam
-
General: No Apparent Distress, Comfortable and Other (Anasarca.)
HEENT: Negative Moist Mucous Membranes
Respiratory: Clear to Auscultation; Negative Wheezes, Rales or Rhonchi
Cardiac: Regular Rhythm and S1/S2; Negative Murmur, Rub or Gallop
GI: Soft, Nontender, Nondistended, Normal Bowel Sounds and Other (Abdominal dressing clean and intact. Without any discharge, erythema or edema)
Genito-urinary: Gillette (Clear output) and Other (Surgical site, penis-sutures clean, intact with no discharge erythema or edema.)
Musculoskeletal: No Clubbing, No Cyanosis and Other (Anasarca.)
Skin: Warm and Dry
Neuro: AO x 3 and No Motor Deficits
Psych: Calm
Data Reviewed
-
Labs: Labs Reviewed by me, Discussed with Physician and Discussed with Nurse
--- NOTE | 2025-01-20 08:25 | W.PN.UPDATE ---
Addendum entered and electronically signed by Brie Roe MD 01/20/25 12:49:
Extensive discussion with son on the phone, he is requesting hospice eval. Discussed philosophy of hospice with son. Hospice consult placed
Original Note:
Update Note
Progress Note Update
I saw and evaluated the patient with the residents.
HPI: 84-year-old M p/w swelling in the penile and scrotal area with discoloration
01/09/25-USS- There are moderate bilateral hydroceles and marked swelling of the scrotal wall. The testicles themselves are unremarkable.
01/11/25-CT Pelvis-surrounding the penis and extending into the adjacent peritoneum there is an air-fluid density with thickened enhancing rim suggesting infection and abscess formation. Air density also extends superiorly extending into the left
anterior pelvic wall musculature and adjacent subcutaneous soft tissues. This could be suggestive of Radames's gangrene. Filling defect within the left common femoral vein with extension into the left femoral and profunda femoris veins likely
representing DVT. As warranted consideration for further evaluation with lower extremity peripheral ultrasound. Large amount of subcutaneous edema left greater than right. Significant scrotal wall thickening and edema especially inferiorly small
to moderate bilateral hydroceles.
Echo 01/14/2025-normal biventricular size and systolic function without regional wall motion abnormality. EF 64%. Mild TR with mildly elevated PA pressure 38 mmHg. Pleural effusion
A/P:
# Radames's gangrene s/p several surgeries
# Septic shock secondary to above-resolved
# Lactic acidosis, resolved
01/11/25: I&D, debridement, drainage of abscess
01/12/25: wound exploration, washout, debridement, dressing change, closure of tunica vaginalis
01/15/25: wound exploration, washout, debridement, dressing change, urethroplasty, partial wound closure, drain placement
Leukocytosis has resolved
Urine cultures from 01/10/2024 grew Enterococcus faecalis
Wound cultures grew Enterococcus raffinosus and MSSA
Continue Abx, now on Zosyn only through 01/24. Off Clinda and off vanco
ID and urology following
Pain control with oxycodone.
Cont current restraint for protective measures (pt had pulled IV)
# Agitation
Depakote 250mg BID added
check level 01/23
psych on board
# Anasarca
on lasix 20 mg daily
# Bilateral lower extremity DVTs
Patient cannot get Eliquis with Dilantin
s/p heparin drip, off Lovenox with therapeutic INR on Coumadin.
holding Coumadin today as INR at 3.06
Monitor daily INR
# Anemia NOS, status post 2 units of packed red blood cells
# Thrombocytosis likely secondary to infection- resolved
# Hyperglycemia
Hemoglobin A1c 5.2
# Transaminitis, likely secondary to infection, resolved
# Seizures
continue Dilantin
# History of CVA
continue anticoagulation
# Hypertension
Off [employer] amlodipine. Monitor Blood pressure
# Vitamin D deficiency
replace
# Hypothyroidism
Continue levothyroxine
# Mild protein calorie malnutrition 2/2 poor p.o. intake.
Currently on Pureed diet with supplement
Patient refuses to eat. Psychiatry consulted
# Known bladder mass
status post TURBT at [facility] December 2024
Gillette catheter was placed at that time. Need to get biopsy results from [facility]
follow-up with urology as outpatient.
# Hypokalemia
replete
DVT prophylaxis- Coumadin (on hold) with daily INR
CODE STATUS- DNR per pt preference, son aware
Dispo: return to [facility] vs. Hospice if pt fails to improve
DW RN
total time > 51 min
[2025-01-20 09:09] LABS: Hematocrit 28.6 % (39.0-52.0); Hemoglobin 9.3 g/dL (13.0-18.0); Mean Corp Hgb Conc. 32.5 g/dL (33.0-37.0); Mean Corpuscular Volume 92.0 fL (80.0-94.0); Platelet Count 301 10^3/uL (130-400); Red Cell Dist. Width 18.0 % (11.5-14.5)
[2025-01-20 09:17] LABS: INR 3.06; PT 31.5 Sec (11.4-14.6)
[2025-01-20 09:46] LABS: ALT (SGPT) 13 U/L (0-50); AST (SGOT) 19 U/L (17-59); Albumin 2.7 g/dl (3.5-5.0); Alkaline Phosphatase 137 U/L (38-126); Blood Urea Nitrogen 17 mg/dl (9-20); Calcium 7.6 mg/dl (8.4-10.2); Carbon Dioxide 27 mmol/L (22-30); Chloride 104 mmol/L (98-107); Estimated Creatinine Clearance 47 ml/min; Glucose 105 mg/dl (70-99); Potassium 3.4 mmol/L (3.5-5.1); Sodium 135 mmol/L (135-145); Total Protein 6.5 g/dl (6.3-8.2); eGFR > 60.00
[2025-01-20] MEDS: KCL 40 MEQ PO (11:28)
[2025-01-20 13:01] LABS: Magnesium 1.6 mg/dl (1.6-2.3)
--- NOTE | 2025-01-20 13:04 | CM ---
tt from hospitalist
CM consult - hospice eval
[facility]
referral placed in [facility]
PLAN: Hospice eval
--- NOTE | 2025-01-20 13:29 | W.PN.URO.CBU ---
Today's Communication / Plan
-
improving
Assessment / Plan
-
Radames's gangrene
Severe necrotizing infection of penis, scrotum, pubic fat pad, extending to LLQ anterior pelvic wall
Breakdown of ventral bulbar urethra requiring closure
01/11/25: I&D, debridement, drainage of abscess
01/12/25: wound exploration, washout, debridement, dressing change, closure of tunica vaginalis
01/15/25: wound exploration, washout, debridement, dressing change, urethroplasty, partial wound closure, drain placement
Radames's gangrene
- Continue abx per ID
- Large scrotal and penile wound was successfully fully closed. This is high risk for wound breakdown or complication but may improve recovery and QOL
- Okay to start daily wound packing changes by nursing/wound care to the suprapubic and L inguinal incisions
- Maintain maurilio drains - two at inferior scrotum, one at L inguinal region. Will reassess for removal possibly early next week
Urethral defect
- Ventral bulbar urethral defect discovered 01/15 which was debrided and repaired primarily over the swift catheter
- High risk for poor healing and breakdown of repair
- Maintain current swift for at least 4 weeks prior to attempted change
- May need suprapubic tube if urethral access compromised
b/l DVT
- Okay to continue heparin
- Can switch to oral anticoagulation per primary team
Diagnosis
-
Date of Service: January 20, 2025
-
Patient Diagnosis:
Post Op Day:
Patient Diagnosis:
Post Op Day:
Patient Diagnosis:
Radames's gangrene
b/l DVT
Urethral avulsion
Post Op Day:
01/11/25: I&D, debridement, drainage of abscess
01/12/25: wound exploration, washout, debridement, dressing change, closure of tunica vaginalis
01/15/25: wound exploration, washout, debridement, dressing change, urethroplasty, partial wound closure, drain placement
Subjective
-
feels better
Objective
-
Vital Signs
Temp Pulse Resp BP Pulse Ox
97.5 F 62 14 143/66 97
01/20/25 11:16 01/20/25 12:00 01/20/25 12:00 01/20/25 12:00 01/20/25 11:51
Intake and Output
01/19/25 01/20/25 01/21/25
06:59 06:59 06:59
Intake Total 1305 / 1305 200 / 200 290 / 290
Output Total 2775 / 2775 1450 / 1450
Balance -1470 / -1470 -1250 / -1250 290 / 290
Intake:
Oral fluids 1105 / 1105 100 / 100 240 / 240
IV piggybacks 200 / 200 100 / 100 50 / 50
Output:
Liquid stool amount 200 / 200
Rectum 200 / 200
Urine, Swift 2575 / 2575 1450 / 1450
Laboratory Results
01/20/25 08:35
01/20/25 08:35
Review of Systems
-
Abdomen/GI: No Symptoms
Physical Exam
-
General - well developed, well nourished, no acute distress
Chest - clear bilaterally
Abdomen - soft, non-tender, positive bowel sounds, no CVAT, no incisional pain or distention
Genitalia - normal
Rectal - normal
Skin - warm & dry with no rash
Neuro - AOx3, no motor deficits
Extremities - no clubbing, no cyanosis, no edema
Incision - clean, dry
Dressing - clean, dry, intact
Counseling
-
improving
Care Review
Data Reviewed
Discussed with: Nursing
--- NOTE | 2025-01-20 13:47 | HOSPNOTE ---
Addendum entered by Madonna Lee RN 01/20/25 16:51:
Son called me back. Lengthy discussion and he is in agreement with initiating comfort measures today. Will review over the next 24h hours to see if patient meets inpatient criteria vs facility placement with hospice. Son does not want patient to go
back to [facility]. He would like to try [facility] if placement with hospice is the route that patient goes. CM, Attending, Primary RN updated. Hospice will continue to follow and assess daily.
Addendum entered by Madonna Lee RN 01/20/25 15:49:
Attempted to reach son again to discuss. Voicemail left. Reviewed Dr. Cabrera notes that patient is responding to Depakote and may be able to be weaned off restraints soon. Its possible that patient could return to with their preferred hospice.
Will continue to follow and be available. Will try to reach son again tomorrow to discuss options. More information to follow. CM, Resident and Primary RN updated.
Original Note:
Hospice referral received. Patient is from [facility]. Patient presently restrained. Spoke to primary nurse and she feels patient gets agitated because we keep doing things he does not want. My recommendation would be to initiate comfort
measures and assess in 24h to see if patient can be unrestrained and medicated with oral/sl medications vs needing to remain restrained and needing iv medications to control agitation. Voicemail left for son to discuss options. Awaiting return call
back. CM, Primary RN, and Resident updated. More information to follow.
--- NOTE | 2025-01-20 14:01 | W.PN.UPDATE ---
Update Note
Progress Note Update
Pt seen at bedside, chart reviewed. Agitation remains overall improved, seems to be feeling better overall, resting in bed comfortably. Seems to have been pulling at lines less often, if remains more settled and not preoccupied with pulling at lines
or needing to leave, can likely trial weaning off restraints - would wait to allow depakote at least full 48 hours to further settle residual impulsivity/agitation so as to minimize further risk to pt given his history recently.
Hospice eval has also been placed for pt by hospitalist service after discussion with pts son.
Continue depakote 250mg BID, check level 01/23
- appears to be helping, pt more settled over past 1-2 days, as noted above may be able to wean off restraints shortly
--- NOTE | 2025-01-20 15:39 | PTCARENOTE ---
Addendum entered by Abib Borja RN 01/20/25 15:45:
B/L soft wrist restraints and 4 side rails per order.
Original Note:
Patient AOx2 and forgetful. Patient angry, agitated, and uncooperative at times. Bed alarm on and audible. Drowsy but arouses to voice. On RA. NSR-sinus tami with BBB on monitor. Abd dressing C/D/I. 3 maurilio drains present. Rectal trumpet draining
liquid stool. Gillette draining yellow urine with sediment. Ate a few bites of food, but refused to eat more. Call gupta within reach, bed in lowest position, and bed of wheels locked.
--- NOTE | 2025-01-20 17:23 | W.PN.UPDATE ---
Update Note
Progress Note Update
Hospice had extensive conversation with son Mr. Reed Melany. Conclusive plan is to put him on comfort measures with restraints off. If patient needs restraints overnight, that qualifies him for inpatient hospice, if doesn't patient's son wants
hospice discharge to [facility] instead of [facility].
Switching patient to comfort care measures, and off of restraints. Hospice team, son and primary hospital medicine team are in agreement with the plan.
[2025-01-20] MEDS: FLOMAX 0.4 MG PO (20:25)
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
[2025-01-21] MEDS: PROTONIX IV 40 MG IV (08:41)
[2025-01-21] MEDS: DEPAKOTE (12 HR RELEASE) 250 MG PO ×2 (08:41→21:52)
[2025-01-21] MEDS: NSS (PRESERVATIVE FREE) 10 ML IV (08:41)
--- NOTE | 2025-01-21 10:21 | CM ---
EDI follwoing re: discharge planning.
Reviewed pt's chart, met with pt and spoke tpo pt's son Daniel Aburto to update on discharge plan progress.
--- NOTE | 2025-01-21 10:22 | CM ---
CM following re: discharge planning.
Reviewed pt's chart, met with pt and spoke tpo pt's son Daniel Aburto to update on discharge plan progress.
Per chart review, pt is on comfort measure. home hospice rn following.
Per home hospice rn, as of today pt does not qualify for inpatient level of hospice yet and she continues to follow up with pt's progress. home hospice rn asked to develop an alternative home hospice level of care at a SNF.
CM spoke to pt's son and he stated he is in contact with home hospice rn and pt's son stated that he is aware that his father might need home hospice at a SNF. pt's son stated that his father was at [facility] just a week and he is
unhappy with care. Pt's son strongly rejected [facility] SNF as an option. Pt's son stated he is aware that pt will be private pay at a preferred and accepted SNF and per sin pt has financial resources. A list of SNFs provided. Pt's son
preferred following SNFs: [facility] SNF, [facility] SNF, [facility], [facility] SN[facility] for hospice care. A referral to above SNFs made. Awaiting for determination.
D?C plan: Plan A: Inpatient hospice level of care if pt qualifies. Alternative plan B: preferred SNF for hospice care
CM will follow with discharge plan updates as hospitalization progresses
--- NOTE | 2025-01-21 11:18 | W.PN.ID1 ---
Date of Service
Date of Service: January 21, 2025
Today's Communication
- Continue 2 week course of zosyn 01/11-01/24
- if patient transitions to hospice then antibiotics could be stopped
Assessment / Plan
Fourniers gangrene
s/p Septic Shock
Probable Aspiration pneumonitis
- OR 01/11 scrotal exploration, drainage and debridement, excision of penile skin necrosis
- OR 01/12 second washout and debridement, closure of tunica vaginalis
- OE 01/15/25: wound exploration, washout, debridement, urethroplasty, partial wound closure, drain placement
- scrotal wound culture e raffinosus (amp sensitive) and mssa
- repeat blood cultures are in progress - no growth to date
- Continue 2 week course of zosyn 01/11-01/24
- follow clinically
- if patient transitions to hospice then antibiotics could be stopped
UTI - e faecalis
- covered by the zosyn
Pseudobacteremia (contaminated blood culture)
- 1 of 2 sets with S epidermidis
- no further workup indicated
Chief Complaint
-: Other (fourniers gangrene)
Subjective / Review of Systems
afebrile
bp stable
tolerating current therapies
Vital Signs / Physical Exam
Vital Signs
Vital Signs
Temp Pulse Resp BP Pulse Ox
96.4 F L 90 18 152/96 98
01/20/25 23:37 01/20/25 23:37 01/20/25 23:37 01/20/25 23:37 01/20/25 23:37
Physical Exam
Constitutional: No Acute Distress
Cardiovascular: Regular Rate and S1/S2; Negative Murmur or Rub
Pulmonary: Clear and Symmetric; Negative Wheezes or Rales
Gastrointestinal: Soft, Non Tender, Non Distended and Normal Bowel Sounds
Skin: Warm and Dry; Negative Rash or Jaundice
Wound: Other (surgical sites clean no erythema, some sersangious drainage from the groin, penis no lesions)
Objective Data
Lab Data
Lab Results
01/20/25 08:35
01/20/25 08:35
PT 31.5 Sec (11.4-14.6) H 01/20/25 08:35
INR 3.06 01/20/25 08:35
APTT Cancelled 01/17/25 12:30
Estimated Creat Clear 47 ml/min 01/20/25 08:35
Lactic Acid 1.7 mmol/L (0.7-2.0) 01/11/25 17:40
Total Bilirubin 0.5 mg/dl (0.2-1.3) 01/20/25 08:35
AST 19 U/L (17-59) 01/20/25 08:35
ALT 13 U/L (0-50) 01/20/25 08:35
Alkaline Phosphatase 137 U/L (38-126) H 01/20/25 08:35
Most recent labs reviewed.
Micro Results:
01/11/25 09:45 Blood Culture - Final
Blood/Venous Staphylococcus epidermidis
Additional testing on request
Gram Stain - Final
01/13/25 05:02 Blood Culture - Final
Blood/Venous No Growth - Final Report
01/13/25 03:53 Blood Culture - Final
Blood/Venous No Growth - Final Report
01/11/25 10:34 Wound Culture - Final
Scrotum Enterococcus raffinosus
S aureus-Methicillin Sensitive
Gram Stain - Final
01/11/25 10:34 Anaerobic Culture - Final
Scrotum NO ANAEROBES ISOLATED
01/11/25 09:42 Blood Culture - Final
Blood/Venous No Growth - Final Report
01/11/25 17:29 MRSA Screen - Final
Nose No Methicillin Resistant Staphylococcus aureus isolated.
01/11/25 09:55 Urine Culture - Final
Urine
--- NOTE | 2025-01-21 11:34 | HOSPNOTE ---
Son is aware per CM that patient does not meet inpatient criteria for hospice at this time but will continue to assess daily. Referrals were sent to SNF with hospice care and the son is aware of the daily room charge. We will continue to assess and
if patient meets criteria we will admit inpatient. Will follow daily.
--- NOTE | 2025-01-21 12:34 | W.PN.URO.CBU ---
Today's Communication / Plan
-
no gu changes awaiot nhp
Assessment / Plan
-
Radames's gangrene
Severe necrotizing infection of penis, scrotum, pubic fat pad, extending to LLQ anterior pelvic wall
Breakdown of ventral bulbar urethra requiring closure
01/11/25: I&D, debridement, drainage of abscess
01/12/25: wound exploration, washout, debridement, dressing change, closure of tunica vaginalis
01/15/25: wound exploration, washout, debridement, dressing change, urethroplasty, partial wound closure, drain placement
Radames's gangrene
- Continue abx per ID
- Large scrotal and penile wound was successfully fully closed. This is high risk for wound breakdown or complication but may improve recovery and QOL
- Okay to start daily wound packing changes by nursing/wound care to the suprapubic and L inguinal incisions
- Maintain maurilio drains - two at inferior scrotum, one at L inguinal region. Will reassess for removal possibly early next week
Urethral defect
- Ventral bulbar urethral defect discovered 01/15 which was debrided and repaired primarily over the swift catheter
- High risk for poor healing and breakdown of repair
- Maintain current swift for at least 4 weeks prior to attempted change
- May need suprapubic tube if urethral access compromised
b/l DVT
- Okay to continue heparin
- Can switch to oral anticoagulation per primary team
Diagnosis
-
Date of Service: January 21, 2025
-
Patient Diagnosis:
Post Op Day:
Patient Diagnosis:
Post Op Day:
Patient Diagnosis:
Post Op Day:
Patient Diagnosis:
Radames's gangrene
b/l DVT
Urethral avulsion
Post Op Day:
01/11/25: I&D, debridement, drainage of abscess
01/12/25: wound exploration, washout, debridement, dressing change, closure of tunica vaginalis
01/15/25: wound exploration, washout, debridement, dressing change, urethroplasty, partial wound closure, drain placement
Subjective
-
poor communication but no obvious pain
Objective
-
Vital Signs
Temp Pulse Resp BP Pulse Ox
96.4 F L 90 18 152/96 98
01/20/25 23:37 01/20/25 23:37 01/20/25 23:37 01/20/25 23:37 01/21/25 08:00
Intake and Output
01/20/25 01/21/25 01/22/25
06:59 06:59 06:59
Intake Total 200 / 200 460 / 460
Output Total 1450 / 1450 1375 / 1375
Balance -1250 / -1250 -915 / -915
Intake:
Oral fluids 100 / 100 360 / 360
IV piggybacks 100 / 100 100 / 100
Output:
Liquid stool amount 550 / 550
Rectum 550 / 550
Urine, Swift 1450 / 1450 825 / 825
Laboratory Results
01/20/25 08:35
01/20/25 08:35
Review of Systems
-
Abdomen/GI: Abdominal Pain
Physical Exam
-
General - well developed, well nourished, no acute distress
Chest - clear bilaterally
Abdomen - soft, non-tender, positive bowel sounds, no CVAT, no incisional pain or distention
Genitalia - normal
Rectal - normal
Skin - warm & dry with no rash
Neuro - AOx3, no motor deficits
Extremities - no clubbing, no cyanosis, no edema
Incision - clean, dry
Dressing - clean, dry, intact
Counseling
-
no gu changes
[2025-01-21 12:39] VITALS: BP 153/66
--- NOTE | 2025-01-21 13:03 | W.PN.UPDATE ---
Update Note
Progress Note Update
HPI: 84-year-old M p/w swelling in the penile and scrotal area with discoloration
01/09/25-USS- There are moderate bilateral hydroceles and marked swelling of the scrotal wall. The testicles themselves are unremarkable.
01/11/25-CT Pelvis-surrounding the penis and extending into the adjacent peritoneum there is an air-fluid density with thickened enhancing rim suggesting infection and abscess formation. Air density also extends superiorly extending into the left
anterior pelvic wall musculature and adjacent subcutaneous soft tissues. This could be suggestive of Radames's gangrene. Filling defect within the left common femoral vein with extension into the left femoral and profunda femoris veins likely
representing DVT. As warranted consideration for further evaluation with lower extremity peripheral ultrasound. Large amount of subcutaneous edema left greater than right. Significant scrotal wall thickening and edema especially inferiorly small
to moderate bilateral hydroceles.
Echo 01/14/2025-normal biventricular size and systolic function without regional wall motion abnormality. EF 64%. Mild TR with mildly elevated PA pressure 38 mmHg. Pleural effusion
A/P:
# Radames's gangrene s/p several surgeries
# Septic shock secondary to above-resolved
# Lactic acidosis, resolved
01/11/25: I&D, debridement, drainage of abscess
01/12/25: wound exploration, washout, debridement, dressing change, closure of tunica vaginalis
01/15/25: wound exploration, washout, debridement, dressing change, urethroplasty, partial wound closure, drain placement
Leukocytosis has resolved
Urine cultures from 01/10/2024 grew Enterococcus faecalis
Wound cultures grew Enterococcus raffinosus and MSSA
IV Abx with Zosyn for 2 weeks course 01/11-01/24 per ID, stopped due to transition to comfort measures
GOC discussed with son, who requested patient to be transition to comfort care with hospice eval.
Given patient is clinically deconditioned with severe infection and suspect severe underlying dementia, comfort measures/hospice eval is felt appropriate
Patient has been transitioned to comfort measures, and current plan is for disposition to a local half-way to continue hospice care
Off restraint and off Abx
# Agitation
Depakote 250mg BID added
agitation has much resolved
psych on board
# Anasarca
off lasix with current comfort measures
# Bilateral lower extremity DVTs
Not a candidate for Eliquis with use of Dilantin
He was s/p heparin drip, then was bridged from Lovenox to coumadin.
off OAC Coumadin with current comfort measures
# Anemia NOS, status post 2 units of packed red blood cells
# Thrombocytosis likely secondary to infection- resolved
# Hyperglycemia
Hemoglobin A1c 5.2
# Transaminitis, likely secondary to infection, resolved
# Seizures
Dilantin DCed
# History of CVA
# Hypertension
Off [facility] amlodipine.
# Hypothyroidism
Off levothyroxine
# Mild protein calorie malnutrition 2/2 poor p.o. intake.
# Known bladder mass
status post TURBT at [facility] December 2024
DVT prophylaxis- no need with comfort measures
CODE STATUS- DNR DNI
Dispo: continue hospice care at a local SNF, CM facilitating
[2025-01-21 15:39] VITALS: BP 140/73
--- NOTE | 2025-01-21 21:29 | W.PN.UPDATE ---
Update Note
Progress Note Update
pt seen to assess progres. reviewed weekend notes; has been less agitated, able to be out of restraints. On my interview able to talk more reasonably about relationship with son, hopes for post hospital care. Better eye contact.
[2025-01-21 21:47] VITALS: BP 151/69
[2025-01-21] MEDS: FLOMAX 0.4 MG PO (21:52)
[2025-01-22] MEDS: NSS (PRESERVATIVE FREE) 10 ML IV (08:12)
[2025-01-22] MEDS: PROTONIX IV 40 MG IV (08:12)
[2025-01-22] MEDS: DEPAKOTE (12 HR RELEASE) 250 MG PO (08:12)
--- NOTE | 2025-01-22 11:49 | W.PN.ID1 ---
Date of Service
Date of Service: January 22, 2025
Today's Communication
- Continue 2 week course of zosyn 01/11-01/24
Assessment / Plan
Fourniers gangrene
s/p Septic Shock
Probable Aspiration pneumonitis
- OR 01/11 scrotal exploration, drainage and debridement, excision of penile skin necrosis
- OR 01/12 second washout and debridement, closure of tunica vaginalis
- OE 01/15/25: wound exploration, washout, debridement, urethroplasty, partial wound closure, drain placement
- scrotal wound culture e raffinosus (amp sensitive) and mssa
- repeat blood cultures are in progress - no growth to date
- Continue 2 week course of zosyn 01/11-01/24
- follow clinically
UTI - e faecalis
- covered by the zosyn
Pseudobacteremia (contaminated blood culture)
- 1 of 2 sets with S epidermidis
- no further workup indicated
Chief Complaint
-: Other (fourniers gangrene)
Subjective / Review of Systems
afebrile
bp stable
dressings clean
Vital Signs / Physical Exam
Vital Signs
Vital Signs
Temp Pulse Resp BP Pulse Ox
97.5 F 63 19 151/69 96
01/21/25 21:47 01/21/25 21:47 01/21/25 21:47 01/21/25 21:47 01/21/25 21:47
Physical Exam
Constitutional: No Acute Distress
Cardiovascular: Regular Rate and S1/S2; Negative Murmur or Rub
Pulmonary: Clear and Symmetric; Negative Wheezes or Rales
Gastrointestinal: Soft, Non Tender, Non Distended and Normal Bowel Sounds
Skin: Warm and Dry; Negative Rash or Jaundice
Wound: Other (dressing clean, dry, intact;)
Objective Data
Lab Data
Lab Results
01/20/25 08:35
01/20/25 08:35
PT 31.5 Sec (11.4-14.6) H 01/20/25 08:35
INR 3.06 01/20/25 08:35
APTT Cancelled 01/17/25 12:30
Estimated Creat Clear 47 ml/min 01/20/25 08:35
Lactic Acid 1.7 mmol/L (0.7-2.0) 01/11/25 17:40
Total Bilirubin 0.5 mg/dl (0.2-1.3) 01/20/25 08:35
AST 19 U/L (17-59) 01/20/25 08:35
ALT 13 U/L (0-50) 01/20/25 08:35
Alkaline Phosphatase 137 U/L (38-126) H 01/20/25 08:35
Most recent labs reviewed.
Micro Results:
01/11/25 09:45 Blood Culture - Final
Blood/Venous Staphylococcus epidermidis
Additional testing on request
Gram Stain - Final
01/13/25 05:02 Blood Culture - Final
Blood/Venous No Growth - Final Report
01/13/25 03:53 Blood Culture - Final
Blood/Venous No Growth - Final Report
01/11/25 10:34 Wound Culture - Final
Scrotum Enterococcus raffinosus
S aureus-Methicillin Sensitive
Gram Stain - Final
01/11/25 10:34 Anaerobic Culture - Final
Scrotum NO ANAEROBES ISOLATED
01/11/25 09:42 Blood Culture - Final
Blood/Venous No Growth - Final Report
01/11/25 17:29 MRSA Screen - Final
Nose No Methicillin Resistant Staphylococcus aureus isolated.
01/11/25 09:55 Urine Culture - Final
Urine
[2025-01-22 12:18] VITALS: BP 138/57
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
--- NOTE | 2025-01-22 12:59 | W.PN.UPDATE ---
Update Note
Progress Note Update
I saw and evaluated the patient. I reviewed the resident�s note and agree with findings and plan as documented in the resident�s note.
HPI: 84-year-old M p/w swelling in the penile and scrotal area with discoloration
01/09/25-USS- There are moderate bilateral hydroceles and marked swelling of the scrotal wall. The testicles themselves are unremarkable.
01/11/25-CT Pelvis-surrounding the penis and extending into the adjacent peritoneum there is an air-fluid density with thickened enhancing rim suggesting infection and abscess formation. Air density also extends superiorly extending into the left
anterior pelvic wall musculature and adjacent subcutaneous soft tissues. This could be suggestive of Radames's gangrene. Filling defect within the left common femoral vein with extension into the left femoral and profunda femoris veins likely
representing DVT. As warranted consideration for further evaluation with lower extremity peripheral ultrasound. Large amount of subcutaneous edema left greater than right. Significant scrotal wall thickening and edema especially inferiorly small
to moderate bilateral hydroceles.
Echo 01/14/2025-normal biventricular size and systolic function without regional wall motion abnormality. EF 64%. Mild TR with mildly elevated PA pressure 38 mmHg. Pleural effusion
A/P:
# Radames's gangrene s/p several surgeries
# Septic shock secondary to above-resolved
# Lactic acidosis, resolved
01/11/25: I&D, debridement, drainage of abscess
01/12/25: wound exploration, washout, debridement, dressing change, closure of tunica vaginalis
01/15/25: wound exploration, washout, debridement, dressing change, urethroplasty, partial wound closure, drain placement
Leukocytosis has resolved
Urine cultures from 01/10/2024 grew Enterococcus faecalis
Wound cultures grew Enterococcus raffinosus and MSSA
IV Abx with Zosyn was recc for 2 weeks course 01/11-01/24 per ID, now stopped due to transition to comfort measures
GOC discussed with son, who requested patient to be transition to comfort care with hospice eval.
Patient has been transitioned to comfort measures, and current plan is for [facility] a [facility] to continue hospice care
Off restraint and off Abx , pt appears to be stable and doing well
# Agitation
Depakote 250mg BID added
agitation has much resolved
psych on board
# Anasarca
off lasix with current comfort measures
# Bilateral lower extremity DVTs
Not a candidate for Eliquis with use of Dilantin
He was s/p heparin drip, then was bridged from Lovenox to coumadin.
off OAC Coumadin with current comfort measures
# Anemia NOS, status post 2 units of packed red blood cells
# Thrombocytosis likely secondary to infection- resolved
# Hyperglycemia
Hemoglobin A1c 5.2
# Transaminitis, likely secondary to infection, resolved
# Seizures
Dilantin DCed
# History of CVA
# Hypertension
Off [employer] amlodipine.
# Hypothyroidism
Off levothyroxine
# Mild protein calorie malnutrition 2/2 poor p.o. intake.
# Known bladder mass
status post TURBT at [facility] December 2024
DVT prophylaxis- no need with comfort measures
CODE STATUS- DNR DNI
Dispo: continue hospice care at a local SNF, facilitating
--- NOTE | 2025-01-22 13:13 | HOSPNOTE ---
Spoke with son and explained that we are still seeking placement with hospice. The son has my direct contact and we will touch base daily. Son is aware of the room and board fee in a SNF when patient is on hospice. Referrals were sent per CM.
--- NOTE | 2025-01-22 14:07 | CM ---
Addendum entered by [facility] 01/22/25 16:21:
[facility] can accept clinically pending 24-48 hours off physical/chemical restraints
Cost is $505 day, they with speak with son about finances
Addendum entered by [facility] 01/22/25 14:31:
Discussion with [facility] admissions
They are willing to reconsider referral pending financial application, they will not be able to provide Part B services to pt though due to [employer] plan
VM left with son with lenora's contact info to arrange for completion of application
Provided Lenora's office number for him to follow up [phone] ext. [phone]
Original Note:
CM reviewed chart, pt continues with comfort
Does not meet criteria for GIP today
No accepting SNF at this time
[facility] will review clinicals- they noted concerns regarding wound
[facility] will speak with son about payments and private pay costs
[facility] has no beds available
[facility] will reconsider admission- Pt with [employer] plan and at times, Part B services are still billed for despite being on hospice service, SNF with no [employer] contract
Call with son to provide update
He is speaking with commercial attorney today on next steps needed to access pt's finances
Son noted pt is very well resourced, approx $700k
Discharge Disposition- SNF private pay with hospice
--- NOTE | 2025-01-22 17:52 | PTCARENOTE ---
Pt self removed rectal tube. Hygiene care provided.
--- NOTE | 2025-01-22 18:33 | W.PN.URO.CBU ---
Today's Communication / Plan
-
comfort measures no gu interventuions
Assessment / Plan
-
Radames's gangrene
Severe necrotizing infection of penis, scrotum, pubic fat pad, extending to LLQ anterior pelvic wall
Breakdown of ventral bulbar urethra requiring closure
01/11/25: I&D, debridement, drainage of abscess
01/12/25: wound exploration, washout, debridement, dressing change, closure of tunica vaginalis
01/15/25: wound exploration, washout, debridement, dressing change, urethroplasty, partial wound closure, drain placement
Radames's gangrene
- Continue abx per ID
- Large scrotal and penile wound was successfully fully closed. This is high risk for wound breakdown or complication but may improve recovery and QOL
- Okay to start daily wound packing changes by nursing/wound care to the suprapubic and L inguinal incisions
- Maintain maurilio drains - two at inferior scrotum, one at L inguinal region. Will reassess for removal possibly early next week
Urethral defect
- Ventral bulbar urethral defect discovered 01/15 which was debrided and repaired primarily over the swift catheter
- High risk for poor healing and breakdown of repair
- Maintain current swift for at least 4 weeks prior to attempted change
- May need suprapubic tube if urethral access compromised
b/l DVT
- Okay to continue heparin
- Can switch to oral anticoagulation per primary team
Diagnosis
-
Date of Service: January 22, 2025
-
Patient Diagnosis:
Post Op Day:
Patient Diagnosis:
Post Op Day:
Patient Diagnosis:
Post Op Day:
Patient Diagnosis:
Post Op Day:
Patient Diagnosis:
Radames's gangrene
b/l DVT
Urethral avulsion
Post Op Day:
01/11/25: I&D, debridement, drainage of abscess
01/12/25: wound exploration, washout, debridement, dressing change, closure of tunica vaginalis
01/15/25: wound exploration, washout, debridement, dressing change, urethroplasty, partial wound closure, drain placement
Subjective
-
comfortable
Objective
-
Vital Signs
Temp Pulse Resp BP Pulse Ox
97.7 F 55 18 138/57 95
01/22/25 12:18 01/22/25 12:18 01/22/25 12:18 01/22/25 12:18 01/22/25 12:18
Intake and Output
01/21/25 01/22/25 01/23/25
06:59 06:59 06:59
Intake Total 460 / 460
Output Total 1375 / 1375 575 / 575
Balance -915 / -915 -575 / -575
Intake:
Oral fluids 360 / 360
IV piggybacks 100 / 100
Output:
Liquid stool amount 550 / 550
Rectum 550 / 550
Urine, Swift 825 / 825 575 / 575
Laboratory Results
01/20/25 08:35
01/20/25 08:35
Review of Systems
-
Abdomen/GI: Abdominal Pain
Physical Exam
-
General - well developed, well nourished, no acute distress
Chest - clear bilaterally
Abdomen - soft, non-tender, positive bowel sounds, no CVAT, no incisional pain or distention
Genitalia - normal
Rectal - normal
Skin - warm & dry with no rash
Neuro - AOx3, no motor deficits
Extremities - no clubbing, no cyanosis, no edema
Incision - clean, dry
Dressing - clean, dry, intact
Counseling
-
hospice
[2025-01-22 21:52] VITALS: BP 147/59
[2025-01-22] MEDS: DEPAKOTE (12 HR RELEASE) PO (21:52)
[2025-01-22] MEDS: FLOMAX PO (21:53)
--- NOTE | 2025-01-23 05:23 | PTCARENOTE ---
Pt screaming, cursing, and trying to swing at staff when checking to see if incontinent and reposition. Unable to reason or de-escalate.
[2025-01-23 07:05] VITALS: BP 155/101
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
--- NOTE | 2025-01-23 08:08 | W.PN.URO.CBU ---
Today's Communication / Plan
-
ready for hospice
Assessment / Plan
-
Radames's gangrene
Severe necrotizing infection of penis, scrotum, pubic fat pad, extending to LLQ anterior pelvic wall
Breakdown of ventral bulbar urethra requiring closure
01/11/25: I&D, debridement, drainage of abscess
01/12/25: wound exploration, washout, debridement, dressing change, closure of tunica vaginalis
01/15/25: wound exploration, washout, debridement, dressing change, urethroplasty, partial wound closure, drain placement
Radames's gangrene
- Continue abx per ID
- Large scrotal and penile wound was successfully fully closed. This is high risk for wound breakdown or complication but may improve recovery and QOL
- Okay to start daily wound packing changes by nursing/wound care to the suprapubic and L inguinal incisions
- Maintain maurilio drains - two at inferior scrotum, one at L inguinal region. Will reassess for removal possibly early next week
Urethral defect
- Ventral bulbar urethral defect discovered 01/15 which was debrided and repaired primarily over the swift catheter
- High risk for poor healing and breakdown of repair
- Maintain current swift for at least 4 weeks prior to attempted change
- May need suprapubic tube if urethral access compromised
b/l DVT
- Okay to continue heparin
- Can switch to oral anticoagulation per primary team
Diagnosis
-
Date of Service: January 23, 2025
-
Patient Diagnosis:
Post Op Day:
Patient Diagnosis:
Post Op Day:
Patient Diagnosis:
Post Op Day:
Patient Diagnosis:
Post Op Day:
Patient Diagnosis:
Post Op Day:
Patient Diagnosis:
Radames's gangrene
b/l DVT
Urethral avulsion
Post Op Day:
01/11/25: I&D, debridement, drainage of abscess
01/12/25: wound exploration, washout, debridement, dressing change, closure of tunica vaginalis
01/15/25: wound exploration, washout, debridement, dressing change, urethroplasty, partial wound closure, drain placement
Subjective
-
for hospice
Objective
-
Vital Signs
Temp Pulse Resp BP Pulse Ox
97.6 F 66 18 155/101 98
01/23/25 07:05 01/23/25 07:05 01/23/25 07:05 01/23/25 07:05 01/23/25 07:05
Intake and Output
01/22/25 01/23/25 01/24/25
06:59 06:59 06:59
Intake Total 120 / 120
Output Total 575 / 575 450 / 450
Balance -575 / -575 -330 / -330
Intake:
Oral fluids 120 / 120
Output:
Urine, Swift 575 / 575 450 / 450
Laboratory Results
01/20/25 08:35
01/20/25 08:35
Review of Systems
-
Abdomen/GI: No Symptoms
Physical Exam
-
General - well developed, well nourished, no acute distress
Chest - clear bilaterally
Abdomen - soft, non-tender, positive bowel sounds, no CVAT, no incisional pain or distention
Genitalia - normal
Rectal - normal
Skin - warm & dry with no rash
Neuro - AOx3, no motor deficits
Extremities - no clubbing, no cyanosis, no edema
Incision - clean, dry
Dressing - clean, dry, intact
[2025-01-23] MEDS: PROTONIX IV 40 MG IV (08:14)
[2025-01-23] MEDS: DEPAKOTE (12 HR RELEASE) 250 MG PO ×3 (08:14→20:56)
[2025-01-23] MEDS: NSS (PRESERVATIVE FREE) 10 ML IV (08:14)
--- NOTE | 2025-01-23 08:35 | W.PN.URO.CBU ---
Today's Communication / Plan
-
Maurilio drains removed
Complete abx course per ID
Okay to change swift 02/19
Assessment / Plan
-
Radames's gangrene
Severe necrotizing infection of penis, scrotum, pubic fat pad, extending to LLQ anterior pelvic wall
Breakdown of ventral bulbar urethra requiring closure
01/11/25: I&D, debridement, drainage of abscess
01/12/25: wound exploration, washout, debridement, dressing change, closure of tunica vaginalis
01/15/25: wound exploration, washout, debridement, dressing change, urethroplasty, partial wound closure, drain placement
Radames's gangrene
- Continue abx per ID
- Large scrotal and penile wound was successfully fully closed
- Continue daily wound packing changes by nursing to the suprapubic and L inguinal incisions
- [place] drains removed 01/23
Urethral defect
- Ventral bulbar urethral defect discovered 01/15 which was debrided and repaired primarily over the swift catheter
- Maintain current swift to allow healing. Okay to change routinely on or after 02/19
b/l DVT
- Okay to continue anticoagulation
Diagnosis
-
Date of Service: January 23, 2025
-
Patient Diagnosis:
Radames's gangrene
b/l DVT
Urethral avulsion
Post Op Day:
01/11/25: I&D, debridement, drainage of abscess
01/12/25: wound exploration, washout, debridement, dressing change, closure of tunica vaginalis
01/15/25: wound exploration, washout, debridement, dressing change, urethroplasty, partial wound closure, drain placement
Subjective
-
No events
Objective
-
Vital Signs
Temp Pulse Resp BP Pulse Ox
97.6 F 66 18 155/101 98
01/23/25 07:05 01/23/25 07:05 01/23/25 07:05 01/23/25 07:05 01/23/25 07:05
Intake and Output
01/22/25 01/23/25 01/24/25
06:59 06:59 06:59
Intake Total 120 / 120
Output Total 575 / 575 450 / 450
Balance -575 / -575 -330 / -330
Intake:
Oral fluids 120 / 120
Output:
Urine, Swift 575 / 575 450 / 450
Laboratory Results
01/20/25 08:35
01/20/25 08:35
Physical Exam
-
General - well developed, well nourished, no acute distress
Abdomen - soft, non-tender
Genitalia - incisions clean, dry, intact with sutures holding. Scrotal and L inguinal maurilio drains no output
--- NOTE | 2025-01-23 11:58 | W.PN.UPDATE ---
Update Note
Progress Note Update
patient seen chart reviewed. spoke with nursing as well as hospice and palliative care nurses. the patient is comfort care currently and snf being sought. he continues to have periods of agitation . during the night was agitated when being
repositioned and swift checked. he also pulled out his rectal trumpet. when i spoke with him he was relatively pleasant until i asked him if there was anything interesting on tv and he started to yell about the gangster in the white [place]. at one
point he told me the gangster would be out in april . when i explained to him that this was not the case he became agitated but we agreed to disagree and he calmed down. he is getting back his appetite as evidenced by the breakfast tray in front
of him. he told me he was in no pain. compared to my visit with him last week he is much improved although still some confusion and relatively easily agitated. . increased depakote to 250 mg tid will check level. changed valium to ativan as it is
shorter acting. he does have a prn of haldol but sublingual not iv given some hx v tach. will follow
--- NOTE | 2025-01-23 12:32 | W.PN.UPDATE ---
Update Note
Progress Note Update
I saw and evaluated the patient. I reviewed the resident�s note and agree with findings and plan as documented in the resident�s note.
HPI: 84-year-old M p/w swelling in the penile and scrotal area with discoloration
01/09/25-USS- There are moderate bilateral hydroceles and marked swelling of the scrotal wall. The testicles themselves are unremarkable.
01/11/25-CT Pelvis-surrounding the penis and extending into the adjacent peritoneum there is an air-fluid density with thickened enhancing rim suggesting infection and abscess formation. Air density also extends superiorly extending into the left
anterior pelvic wall musculature and adjacent subcutaneous soft tissues. This could be suggestive of Radames's gangrene. Filling defect within the left common femoral vein with extension into the left femoral and profunda femoris veins likely
representing DVT. As warranted consideration for further evaluation with lower extremity peripheral ultrasound. Large amount of subcutaneous edema left greater than right. Significant scrotal wall thickening and edema especially inferiorly small
to moderate bilateral hydroceles.
Echo 01/14/2025-normal biventricular size and systolic function without regional wall motion abnormality. EF 64%. Mild TR with mildly elevated PA pressure 38 mmHg. Pleural effusion
A/P:
# Radames's gangrene s/p several surgeries
# Septic shock secondary to above-resolved
# Lactic acidosis, resolved
01/11/25: I&D, debridement, drainage of abscess
01/12/25: wound exploration, washout, debridement, dressing change, closure of tunica vaginalis
01/15/25: wound exploration, washout, debridement, dressing change, urethroplasty, partial wound closure, drain placement
Leukocytosis has resolved
Urine cultures from 01/10/2024 grew Enterococcus faecalis
Wound cultures grew Enterococcus raffinosus and MSSA
GOC discussed with son, plan is to continue current comfort care and likely outpt hospice
Off IV Abx Zosyn (was recc for 2 weeks course 01/11-01/24 per ID) due to transitioning to comfort measures
Off restraint and off Abx , pt appears to be stable and doing well
Of note, [place] drain removed by uro
Gillette change 02/19
# Agitation
Cont Depakote, increased from 250mg BID tp TID
changed Valium to Ativan as it is shorter acting.
agitation has much resolved
psych on board
# Anasarca
off lasix with current comfort measures
# Bilateral lower extremity DVTs
Not a candidate for Eliquis with use of Dilantin
He was s/p heparin drip, then was bridged from Lovenox to coumadin.
off OAC Coumadin with current comfort measures
# Anemia NOS, status post 2 units of packed red blood cells
# Seizures
Dilantin DCed
# History of CVA
# Hypertension
Off PAY PER CLICK [employer]ATEGIST amlodipine.
# Hypothyroidism
Off levothyroxine
# Known bladder mass
status post TURBT at [facility] December 2024
DVT prophylaxis- no need with comfort measures
CODE STATUS- DNR DNI
Dispo: Plan to continue hospice care at a local SNF, CM facilitating
--- NOTE | 2025-01-23 12:43 | W.PN.ID1 ---
Date of Service
Date of Service: January 23, 2025
Today's Communication
- Continue 2 week course of zosyn 01/11-01/24
Assessment / Plan
Fourniers gangrene
s/p Septic Shock
Probable Aspiration pneumonitis
- OR 01/11 scrotal exploration, drainage and debridement, excision of penile skin necrosis
- OR 01/12 second washout and debridement, closure of tunica vaginalis
- OE 01/15/25: wound exploration, washout, debridement, urethroplasty, partial wound closure, drain placement
- scrotal wound culture e raffinosus (amp sensitive) and mssa
- repeat blood cultures are in progress - no growth to date
- Continue 2 week course of zosyn 01/11-01/24
- follow clinically
UTI - e faecalis
- covered by the zosyn
Pseudobacteremia (contaminated blood culture)
- 1 of 2 sets with S epidermidis
- no further workup indicated
Chief Complaint
-: Other (fourniers gangrene)
Subjective / Review of Systems
remains afebrile
bp stable
Vital Signs / Physical Exam
Vital Signs
Vital Signs
Temp Pulse Resp BP Pulse Ox
97.6 F 66 18 155/101 98
01/23/25 07:05 01/23/25 07:05 01/23/25 07:05 01/23/25 07:05 01/23/25 07:05
Physical Exam
Constitutional: No Acute Distress
Cardiovascular: Regular Rate
Pulmonary: Symmetric and Non Labored
Skin: Dry; Negative Rash or Jaundice
Neurological: Negative Awake
Objective Data
Lab Data
Lab Results
01/20/25 08:35
01/20/25 08:35
PT 31.5 Sec (11.4-14.6) H 01/20/25 08:35
INR 3.06 01/20/25 08:35
APTT Cancelled 01/17/25 12:30
Estimated Creat Clear 47 ml/min 01/20/25 08:35
Lactic Acid 1.7 mmol/L (0.7-2.0) 01/11/25 17:40
Total Bilirubin 0.5 mg/dl (0.2-1.3) 01/20/25 08:35
AST 19 U/L (17-59) 01/20/25 08:35
ALT 13 U/L (0-50) 01/20/25 08:35
Alkaline Phosphatase 137 U/L (38-126) H 01/20/25 08:35
Most recent labs reviewed.
Micro Results:
01/11/25 09:45 Blood Culture - Final
Blood/Venous Staphylococcus epidermidis
Additional testing on request
Gram Stain - Final
01/13/25 05:02 Blood Culture - Final
Blood/Venous No Growth - Final Report
01/13/25 03:53 Blood Culture - Final
Blood/Venous No Growth - Final Report
01/11/25 10:34 Wound Culture - Final
Scrotum Enterococcus raffinosus
S aureus-Methicillin Sensitive
Gram Stain - Final
01/11/25 10:34 Anaerobic Culture - Final
Scrotum NO ANAEROBES ISOLATED
01/11/25 09:42 Blood Culture - Final
Blood/Venous No Growth - Final Report
01/11/25 17:29 MRSA Screen - Final
Nose No Methicillin Resistant Staphylococcus aureus isolated.
01/11/25 09:55 Urine Culture - Final
Urine
[2025-01-23] MEDS: ATIVAN 0.5 MG PO (14:18)
[2025-01-23 20:01] VITALS: BP 141/75
[2025-01-23] MEDS: FLOMAX 0.4 MG PO (20:56)
[2025-01-24 06:46] LABS: Depakane 29.5 ug/ml (50.0-120.0)
[2025-01-24 07:00] VITALS: BP 148/67
--- NOTE | 2025-01-24 08:31 | W.PN.ID1 ---
Date of Service
Date of Service: January 24, 2025
Today's Communication
- completed course of zosyn
Assessment / Plan
Fourniers gangrene
s/p Septic Shock
Probable Aspiration pneumonitis
- OR 01/11 scrotal exploration, drainage and debridement, excision of penile skin necrosis
- OR 01/12 second washout and debridement, closure of tunica vaginalis
- OE 01/15/25: wound exploration, washout, debridement, urethroplasty, partial wound closure, drain placement
- scrotal wound culture e raffinosus (amp sensitive) and mssa
- repeat blood cultures are in progress - no growth to date
- completed course of zosyn
UTI - e faecalis
- covered by the zosyn
Pseudobacteremia (contaminated blood culture)
- 1 of 2 sets with S epidermidis
- no further workup indicated
Chief Complaint
-: Other (fourniers gangrene)
Subjective / Review of Systems
afebrile
bp stable
tolerating current therapies
Vital Signs / Physical Exam
Vital Signs
Vital Signs
Temp Pulse Resp BP Pulse Ox
97.6 F 59 16 148/67 95
01/24/25 07:00 01/24/25 07:00 01/24/25 07:00 01/24/25 07:00 01/24/25 07:00
Physical Exam
Constitutional: No Acute Distress
Cardiovascular: Regular Rate and S1/S2; Negative Murmur or Rub
Pulmonary: Clear and Symmetric; Negative Wheezes or Rales
Gastrointestinal: Soft, Non Tender, Non Distended and Normal Bowel Sounds
Skin: Warm and Dry; Negative Rash or Jaundice
Objective Data
Lab Data
Lab Results
01/20/25 08:35
01/20/25 08:35
PT 31.5 Sec (11.4-14.6) H 01/20/25 08:35
INR 3.06 01/20/25 08:35
APTT Cancelled 01/17/25 12:30
Estimated Creat Clear 47 ml/min 01/20/25 08:35
Lactic Acid 1.7 mmol/L (0.7-2.0) 01/11/25 17:40
Total Bilirubin 0.5 mg/dl (0.2-1.3) 01/20/25 08:35
AST 19 U/L (17-59) 01/20/25 08:35
ALT 13 U/L (0-50) 01/20/25 08:35
Alkaline Phosphatase 137 U/L (38-126) H 01/20/25 08:35
Most recent labs reviewed.
Micro Results:
01/11/25 09:45 Blood Culture - Final
Blood/Venous Staphylococcus epidermidis
Additional testing on request
Gram Stain - Final
01/13/25 05:02 Blood Culture - Final
Blood/Venous No Growth - Final Report
01/13/25 03:53 Blood Culture - Final
Blood/Venous No Growth - Final Report
01/11/25 10:34 Wound Culture - Final
Scrotum Enterococcus raffinosus
S aureus-Methicillin Sensitive
Gram Stain - Final
01/11/25 10:34 Anaerobic Culture - Final
Scrotum NO ANAEROBES ISOLATED
01/11/25 09:42 Blood Culture - Final
Blood/Venous No Growth - Final Report
01/11/25 17:29 MRSA Screen - Final
Nose No Methicillin Resistant Staphylococcus aureus isolated.
01/11/25 09:55 Urine Culture - Final
Urine
--- NOTE | 2025-01-24 08:35 | VATNOTE ---
Pt. has no IV access. May have been removed by the pt. Primary RN not aware. Notified [facility] Manager who just saw pt. and said 'hold off on placing new IV access for now, the plan is to discharge pt. to Hospice care'.
[2025-01-24] MEDS: DEPAKOTE (12 HR RELEASE) 250 MG PO ×2 (09:01→14:57)
[2025-01-24] MEDS: PROTONIX IV IV ×2 (09:02→09:26)
[2025-01-24] MEDS: NSS (PRESERVATIVE FREE) IV ×2 (09:02→09:26)
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
--- NOTE | 2025-01-24 11:32 | W.PN.UPDATE ---
Update Note
Progress Note Update
I saw the patient and evaluated the patient with the resident.
HPI: 84-year-old M p/w swelling in the penile and scrotal area with discoloration
01/09/25-USS- There are moderate bilateral hydroceles and marked swelling of the scrotal wall. The testicles themselves are unremarkable.
01/11/25-CT Pelvis-surrounding the penis and extending into the adjacent peritoneum there is an air-fluid density with thickened enhancing rim suggesting infection and abscess formation. Air density also extends superiorly extending into the left
anterior pelvic wall musculature and adjacent subcutaneous soft tissues. This could be suggestive of Radames's gangrene. Filling defect within the left common femoral vein with extension into the left femoral and profunda femoris veins likely
representing DVT. As warranted consideration for further evaluation with lower extremity peripheral ultrasound. Large amount of subcutaneous edema left greater than right. Significant scrotal wall thickening and edema especially inferiorly small
to moderate bilateral hydroceles.
Echo 01/14/2025-normal biventricular size and systolic function without regional wall motion abnormality. EF 64%. Mild TR with mildly elevated PA pressure 38 mmHg. Pleural effusion
A/P:
# Radames's gangrene s/p several surgeries
# Septic shock secondary to above-resolved
# Lactic acidosis, resolved
01/11/25: I&D, debridement, drainage of abscess
01/12/25: wound exploration, washout, debridement, dressing change, closure of tunica vaginalis
01/15/25: wound exploration, washout, debridement, dressing change, urethroplasty, partial wound closure, drain placement
Leukocytosis has resolved
Urine cultures from 01/10/2024 grew Enterococcus faecalis
Wound cultures grew Enterococcus raffinosus and MSSA
GOC discussed with son, plan is to continue current comfort care with likely outpt hospice at a facility
Off IV Abx Zosyn (was recc for 2 weeks course 01/11-01/24 per ID) due to transitioning to comfort measures
Off restraint and off Abx , pt appears to be stable and doing well
Of note, [place] drain removed by uro
Gillette change 02/19
# Agitation
Cont Depakote, increased from 250mg BID to TID
changed Valium to Ativan PRN as it is shorter acting.
agitation has much resolved
psych on board
# Anasarca
off lasix with current comfort measures
# Bilateral lower extremity DVTs
Not a candidate for Eliquis with use of Dilantin
He was s/p heparin drip, then was bridged from Lovenox to coumadin.
off OAC Coumadin with current comfort measures
# Anemia NOS, status post 2 units of packed red blood cells
# Seizures
Dilantin DCed
# History of CVA
# Hypertension
Off [employer]ANCE [employer]ER amlodipine.
# Hypothyroidism
Off levothyroxine
# Known bladder mass
status post TURBT at [facility] December 2024
DVT prophylaxis- no need with comfort measures
CODE STATUS- DNR DNI
Dispo: Plan to continue hospice care at a local SNF, facilitating
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
--- NOTE | 2025-01-24 12:41 | HOSPNOTE ---
The plan is still to seek SNF placement and then patient will be placed on hospice services once patient finds placement. CM updated
--- NOTE | 2025-01-24 13:12 | CM ---
Addendum entered by Lowell Torres 01/24/25 15:50:
CM spoke to pt's son Daniel and is notified that only [facility] offered a bed. Pt's son stated she went to a very difficult situation: he does not have POA and does not have access to pt's money. Pt's son stated he hired an consumer attorney
[facility] [employer] [facility] and working with them on legal guardianship. Pt's son asked to call [facility] law office and talk to major account representative Rosanne [phone].
CM spoke to Rosanne and she confirmed that pt has enough financial resources including $700,000.00 on saving and $60,000.00 on checking, plus a few properties for sale. Per Rosanne [facility] [employer] office is working on legal guardianship and it can take
up to a few weeks to get it done. Per Rosanne, the solution can be that their law office will work with [facility] staff on ability to accept the pt with an official guarantee letter to pay for room and board with a payment later when
legal guardianship is in place. CM provided Karen with [facility] liaison phone number to coordinate a process explained above.
Awaiting for an agreement between [facility] office and [facility]
D/C plan: [facility] with hospice care.
Original Note:
CM following re: discharge planning.
Reviewed pt's chart, met with pt and communicated via text with pt's son Juan Pablo. Pt's son Juan Pablo stated he is at work till 2:30, cannot talk and he will call me after 2:30 p.m. to discuss a detailed discharge plan.
Per hospice manager pt does not meet criteria for inpatient hospice level of care.
CM spoke to [facility] director career services and she confirmed they do not have a bed available and a referral has been denied.
CM spoke to [facility] security system administrator Ladan and she confirmed that a referral has been denied.
CM spoke to [facility] admissions liaison and she stated they will accept the pt, she left 2 messages to pt's son and he did not response.
D/C plan: preferred SNF with hospice care.
[2025-01-24 19:32] VITALS: BP 147/63
[2025-01-24] MEDS: DEPAKOTE (12 HR RELEASE) 500 MG PO (21:09)
[2025-01-24] MEDS: FLOMAX 0.4 MG PO (21:09)
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
[2025-01-25] MEDS: PROTONIX 40 MG PO (09:22)
[2025-01-25] MEDS: DEPAKOTE (12 HR RELEASE) 250 MG PO ×2 (09:22→12:00)
--- NOTE | 2025-01-25 11:30 | W.PN.UPDATE ---
Update Note
Progress Note Update
I saw the patient and evaluated the patient with the resident.
HPI: 84-year-old M p/w swelling in the penile and scrotal area with discoloration
01/09/25-USS- There are moderate bilateral hydroceles and marked swelling of the scrotal wall. The testicles themselves are unremarkable.
01/11/25-CT Pelvis-surrounding the penis and extending into the adjacent peritoneum there is an air-fluid density with thickened enhancing rim suggesting infection and abscess formation. Air density also extends superiorly extending into the left
anterior pelvic wall musculature and adjacent subcutaneous soft tissues. This could be suggestive of Radames's gangrene. Filling defect within the left common femoral vein with extension into the left femoral and profunda femoris veins likely
representing DVT. As warranted consideration for further evaluation with lower extremity peripheral ultrasound. Large amount of subcutaneous edema left greater than right. Significant scrotal wall thickening and edema especially inferiorly small
to moderate bilateral hydroceles.
Echo 01/14/2025-normal biventricular size and systolic function without regional wall motion abnormality. EF 64%. Mild TR with mildly elevated PA pressure 38 mmHg. Pleural effusion
A/P:
# Radames's gangrene s/p several surgeries
# Septic shock secondary to above-resolved
# Lactic acidosis, resolved
01/11/25: I&D, debridement, drainage of abscess
01/12/25: wound exploration, washout, debridement, dressing change, closure of tunica vaginalis
01/15/25: wound exploration, washout, debridement, dressing change, urethroplasty, partial wound closure, drain placement
Urine cultures from 01/10/2024 grew Enterococcus faecalis. Wound cultures grew Enterococcus raffinosus and MSSA
GOC discussed with son, plan is to continue current comfort care with outpt hospice at a facility
Off IV Abx Zosyn (was recc for 2 weeks course 01/11-01/24 per ID) with comfort measures
Off restraint and off Abx , pt appears to be stable and doing well
Gillette change 02/19 per Uro
# Agitation
Cont Depakote, increased from 250mg BID to TID
changed Valium to Ativan PRN as it is shorter acting.
agitation has much resolved
psych on board
# Anasarca
off lasix with current comfort measures
# Bilateral lower extremity DVTs
Not a candidate for Eliquis with use of Dilantin
He was s/p heparin drip, then was bridged from Lovenox to Coumadin.
off OAC Coumadin with current comfort measures
# Anemia NOS, status post 2 units of packed red blood cells
# Seizures
Dilantin DCed
# History of CVA
# Hypertension
Off CHIEF DRAFTER amlodipine.
# Hypothyroidism
Off levothyroxine
# Known bladder mass
status post TURBT at [facility] December 2024
DVT prophylaxis- no need with comfort measures
CODE STATUS- DNR DNI
Dispo: Plan to continue hospice care at a local SNF, CM facilitating
--- NOTE | 2025-01-25 12:49 | W.PN.UPDATE ---
Update Note
Progress Note Update
patient is now comfort care and antibiotics are complete, ID will no longer actively follow this patient please recall for further questions
--- NOTE | 2025-01-25 13:23 | CM ---
CM following re: discharge planning.
Reviewed pt's chart, met with pt, left a message to pt's son and spoke to [facility] office equal opportunity representative Rosanne [phone].
Per Rosanne, she left a message to pt's son regarding providing a proof of pt's financial and as soon as they do have it they will initiate a letter to [facility]. Per Rosanne, [facility] office has pt's financial information from pt's son
words and they need proof of it.
Awaiting for an agreement between [facility] office and [facility]
D/C plan: [facility] with hospice care.
--- NOTE | 2025-01-25 14:01 | W.PN.UPDATE ---
Update Note
Progress Note Update
patient seen chart reviewed. mr lockwood continues to be able to interact relatively appropriately. he is a bit gruff but is getting his message across. he complained to me vociferously that he has not gotten his lunch although he had been
promised 'scrambled eggs potatoes and soup.' he said he was 'lying here dreaming of food'. i checked with nursing and he had not gotten his lunch although it had been ordered. i assured him it was coming and he said 'i don't believe you' when i
said i would double check in half an hour he said 'okay i believe you'. i informed him that i called his son and left message that he wanted son to visit to talk to him about some issues. patient is overall much improved since admit although it
still appears he will need a lot of help with adl's etc. would continue w depakote. it seems to have calmed him considerably. he has not used prn since two days ago. will dc prn haldol. he still has a prn ativan. psych will look in on him over
weekend once and if still good will consider signing off. he has a depakote level this weekend.
[2025-01-25 15:18] VITALS: BP 118/59
--- NOTE | 2025-01-25 18:36 | PTCARENOTE ---
Patient AAOx2, occasionally confused and forgetful, easily redirected, calm and cooperative with care, denies any pain throughout shift. Abdomen and groin incision sites with packing, reinforced with ABD pads, sutures along scrotum intact. Gillette in
place draining yellow urine, sacrum and heel foams placed, bed bath provided, patient tolerating [id number] diet with good appetite. Bed alarm in place but patient ringing appropriately.
[2025-01-25 19:56] VITALS: BP 136/70
[2025-01-25 20:06] VITALS: BP 136/70
[2025-01-25] MEDS: DEPAKOTE (12 HR RELEASE) 500 MG PO (21:04)
[2025-01-25] MEDS: FLOMAX 0.4 MG PO (21:04)
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
[2025-01-26] MEDS: DEPAKOTE (12 HR RELEASE) 250 MG PO ×2 (07:46→12:11)
[2025-01-26] MEDS: PROTONIX 40 MG PO (07:46)
[2025-01-26 08:04] VITALS: BP 141/58
[2025-01-26 12:00] LABS: INR 1.05; PT 14.0 Sec (11.4-14.6)
[2025-01-26] MEDS: SYNTHROID 50 MCG PO (12:17)
[2025-01-26 12:25] LABS: Blood Urea Nitrogen 16 mg/dl (9-20); Calcium 7.8 mg/dl (8.4-10.2); Carbon Dioxide 26 mmol/L (22-30); Chloride 105 mmol/L (98-107); Estimated Creatinine Clearance 64 ml/min; Glucose 111 mg/dl (70-99); Potassium 4.5 mmol/L (3.5-5.1); Sodium 131 mmol/L (135-145); eGFR > 60.00
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
--- NOTE | 2025-01-26 12:53 | PTCARENOTE ---
Addendum entered by Glo Chino RN 01/26/25 15:39:
MD aware patient with no IV access.
Original Note:
Comfort measures DCed per MD, verbal order taken by this RN. Wound care order re-entered, suprapubic and L inguinal incisions repacked and covered with ABDs, scrotal sutures intact and covered with ABD. Gillette in place.
[2025-01-26 12:56] LABS: Hematocrit 27.3 % (39.0-52.0); Hemoglobin 8.4 g/dL (13.0-18.0); Mean Corp Hgb Conc. 30.8 g/dL (33.0-37.0); Mean Corpuscular Volume 96.1 fL (80.0-94.0); Platelet Count 229 10^3/uL (130-400); Red Cell Dist. Width 18.1 % (11.5-14.5)
--- NOTE | 2025-01-26 14:37 | W.PN.UPDATE ---
Addendum entered and electronically signed by Selene Reagan MD 01/26/25 15:18:
Spoke to son and discussed about patient's improvement. Also discussion with hospice that he may not qualify for hospice. Son is okay with the plan of patient going to short-term rehab and transition to long-term if needed. I also mention to him
that palliative care will not be a bad idea and in case if patient gets worse in the future he can be transition over to hospice at that time if he qualifies.
Original Note:
Update Note
Progress Note Update
Seen and examined the patient independently earlier today. Psychiatry was at bedside so less nursing at bedside. Case discussed with resident. Agree with plan of care except changes in my documentation
A week ago when I saw him patient was much more lethargic and was wanting to saying 'just let me '. He was very confused as well. Now he seems to be wide-awake and alert able to communicate. He notes that he had bladder tumor surgery at
[facility]. He notes that he had a urinary tract infection which was treated here does not know much about the Fourniere's gangrene and details about it.
On examination awake alert and he knows that he is at [facility] able to converse
Cardiovascular system S1-S2 appreciated
Chest clear to auscultation abdomen soft and nontender
Bilateral pedal edema noted
84-year-old with swelling in the penis and scrotal area with discoloration
01/09/25-USS- There are moderate bilateral hydroceles and marked swelling of the scrotal wall. The testicles themselves are unremarkable.
01/11/25-CT Pelvis-surrounding the penis and extending into the adjacent peritoneum there is an air-fluid density with thickened enhancing rim suggesting infection and abscess formation. Air density also extends superiorly extending into the left
anterior pelvic wall musculature and adjacent subcutaneous soft tissues. This could be suggestive of Radames's gangrene. Filling defect within the left common femoral vein with extension into the left femoral and profunda femoris veins likely
representing DVT. As warranted consideration for further evaluation with lower extremity peripheral ultrasound. Large amount of subcutaneous edema left greater than right. Significant scrotal wall thickening and edema especially inferiorly small
to moderate bilateral hydroceles.
Echo 01/14/2025-normal biventricular size and systolic function without regional wall motion abnormality. EF 64%. Mild TR with mildly elevated PA pressure 38 mmHg. Pleural effusion
# Radames's gangrene
01/11/25: I&D, debridement, drainage of abscess
01/12/25: wound exploration, washout, debridement, dressing change, closure of tunica vaginalis
01/15/25: wound exploration, washout, debridement, dressing change, urethroplasty, partial wound closure, drain placement
Leukocytosis resolved
He was on vancomycin ,Zosyn. And clinda. At 1 point. Currently off of oral antibiotics as he completed the course.
Urine cultures from 01/10/2024 with Enterococcus faecalis
Wound cultures with and Enterococcus raffinosus and staph
# Septic shock secondary to above-resolved
# Anasarca-will try a dose of Lasix again now-20 mg ordered
# Bilateral lower extremity DVTs-will restart Coumadin with Lovenox
# Anemia-NOS status post 2 units of packed red blood cells
# Thrombocytosis-likely secondary to infection-resolved
# Lactic acidosis resolved
# Hyperglycemia Hemoglobin A1c 5.2
# Transaminitis-likely secondary to infection-better
# Seizures-patient currently on Depakote-therefore Dilantin was discontinued. He seems to be stable
# History of CVA-continue anticoagulation
# Hypertension-Hold amlodipine. Blood pressure as needed. Stopped especially with edema
# Vitamin D deficiency-replace
# Hypothyroidism-Continue levothyroxine
# Hypoalbuminemia
# Mild protein calorie malnutrition-poor p.o. intake. Supplements added. Patient refuses to eat. Psychiatry consulted
# Bladder mass-status post TURBT at [facility] December 2024-Gillette catheter was placed at that time.
# DVT prophylaxis-Lovenox
# CODE STATUS- DNR per pt preference, son aware
Discussed with nursing at bedside
Discussed with psychiatry at bedside
Detailed discussion with hospice as well as case management.
I had a discussion with patient about hospice today as he seems to be able to understand and converse more. Patient stated that he wants to go home. I made him aware that that was not an option as his house was not in uninhabitable condition when
he was found and also he is very weak to manage himself. He does not have a clear plan for how he will manage at home but continue to wanting to go home. At 1 point he said maybe he can live with his son which I reminded him may not be a practical
option.
We discussed that he will need to go to rehab until he got stronger. He made it clear that he does not want hospice and do not force him to accept hospice.
At this point I am not clear on what the hospice diagnosis would be. I have reached out to case management as well as hospice who feels the same since the patient is able to communicate more and he does not want hospice as well as his p.o. intake
is improved as well.
I have restarted his medicines until further decision is made
Called son, went to voicemail-left a message to call back
Total time spent over 50 minutes
--- NOTE | 2025-01-26 15:43 | CM ---
CM reviewed pt with attending and [facility] hospice- pt likely no longer appropriate for hospice
Pt's mentation improving- pt does not want hospice
Discussion between son and attending and son in agreement with STR at [facility]
Comfort measures have been discontinued
PT/OT evals requested for rehab auth
Outreach to [facility] admissions- awaiting call back
Discharge Disposition- anticipate [facility] for STR
[2025-01-26 15:50] VITALS: BP 130/56
[2025-01-26] MEDS: LASIX 40 MG PO (15:56)
[2025-01-26] MEDS: LOVENOX 80 MG SC (15:56)
[2025-01-26] MEDS: COUMADIN 5 MG PO (17:19)
[2025-01-26] MEDS: DEPAKOTE (12 HR RELEASE) 500 MG PO (21:15)
[2025-01-26] MEDS: FLOMAX 0.4 MG PO (21:15)
[2025-01-26 22:37] VITALS: BP 128/53
[2025-01-27] MEDS: LOVENOX 80 MG SC ×2 (02:52→14:27)
[2025-01-27] MEDS: SYNTHROID 50 MCG PO (05:55)
[2025-01-27 06:59] VITALS: BP 132/60
[2025-01-27 07:03] LABS: INR 1.08; PT 14.3 Sec (11.4-14.6)
[2025-01-27 07:20] LABS: Blood Urea Nitrogen 16 mg/dl (9-20); Calcium 7.6 mg/dl (8.4-10.2); Carbon Dioxide 26 mmol/L (22-30); Chloride 105 mmol/L (98-107); Estimated Creatinine Clearance 64 ml/min; Glucose 99 mg/dl (70-99); Potassium 4.9 mmol/L (3.5-5.1); Sodium 134 mmol/L (135-145); eGFR > 60.00
[2025-01-27 07:29] LABS: Depakane 41.2 ug/ml (50.0-120.0)
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
[2025-01-27] MEDS: PROTONIX 40 MG PO (08:13)
[2025-01-27] MEDS: DEPAKOTE (12 HR RELEASE) 250 MG PO ×2 (08:13→20:56)
[2025-01-27] MEDS: VITAMIN D3 (cholecalciferol) 50 MCG PO (08:13)
[2025-01-27 08:26] LABS: Hematocrit 24.9 % (39.0-52.0); Hemoglobin 8.3 g/dL (13.0-18.0); Mean Corp Hgb Conc. 33.3 g/dL (33.0-37.0); Mean Corpuscular Volume 92.9 fL (80.0-94.0); Nucleated Red Blood Cells % 0 % (-); Platelet Count 235 10^3/uL (130-400); Red Cell Dist. Width 18.0 % (11.5-14.5)
[2025-01-27 10:11] VITALS: BP 98/48
[2025-01-27] MEDS: LASIX 40 MG PO (10:27)
--- NOTE | 2025-01-27 10:47 | HOSPNOTE ---
Late entry from 01/26 - was notified via TT that patient was more alert, no longer in restraints, eating and expressing his wish to get stronger and no longer interested in pursing Hospice care. Hospice will sign off for now, please notify if the
situation changes. - Thank you
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
[2025-01-27 12:02] VITALS: BP 98/48
[2025-01-27 15:15] VITALS: BP 112/63
[2025-01-27] MEDS: COUMADIN 5 MG PO (17:15)
[2025-01-27] MEDS: DEPAKOTE (12 HR RELEASE) 500 MG PO (20:56)
[2025-01-27] MEDS: FLOMAX 0.4 MG PO (21:06)
[2025-01-27 23:00] VITALS: BP 132/54
[2025-01-28] MEDS: LOVENOX SC (02:49)
[2025-01-28] MEDS: SYNTHROID 50 MCG PO (05:27)
[2025-01-28 07:09] VITALS: BP 164/74
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
[2025-01-28 08:10] LABS: INR 1.07; PT 14.2 Sec (11.4-14.6)
[2025-01-28 08:47] LABS: Blood Urea Nitrogen 19 mg/dl (9-20); Calcium 7.9 mg/dl (8.4-10.2); Carbon Dioxide 27 mmol/L (22-30); Chloride 104 mmol/L (98-107); Estimated Creatinine Clearance 51 ml/min; Glucose 93 mg/dl (70-99); Potassium 4.9 mmol/L (3.5-5.1); Sodium 132 mmol/L (135-145); eGFR > 60.00
[2025-01-28] MEDS: PROTONIX 40 MG PO (09:01)
[2025-01-28] MEDS: VITAMIN D3 (cholecalciferol) 50 MCG PO (09:01)
[2025-01-28] MEDS: DEPAKOTE (12 HR RELEASE) 500 MG PO ×2 (09:02→19:27)
[2025-01-28] MEDS: LASIX 40 MG PO (10:36)
[2025-01-28] MEDS: ELIQUIS 10 MG PO ×2 (10:36→19:27)
--- NOTE | 2025-01-28 12:13 | CM ---
Addendum entered by Lowell Torres 01/28/25 13:30:
[facility] offered a bed after presenting pt's case to dean of admissions. All other SNFs denied a referral.
Pt's son is aware, expressed his agreement with getting his father to [facility] for a short term rehab and a termite control representative care private pay.
CM spoke to [facility] again and she confirmed that pt is accepted for admission tomorrow.
EDI initiated an auth from [facility] for SNF level of care at [facility] for tomorrow, spoke to mechanical service representative Cammie, pending reference number: [id number]. Requested pt's clinical faxed to [facility] [phone] for a review
D/C plan: [facility] for a short term rehab and a usp care. Awaitiung for an auth.
Original Note:
CM following re: discharge planning.
Reviewed pt's chart, met with pt and spoke to pt's son numerous time today.
Per chart review, pt is no longer comfort care, doing better and PT/OT recommend now SNF level of care.
EDI spoke to [facility] SNF liaison and she stated they do not accept pt's insurance and in order for the to accept the pt on hospice care they requested legal guardianship be in place. At this point a referral has been denied.
EDI discussed it with pt's son and he requested to send a referral to SNFs in the area. referral made to [facility], [facility], [facility], [facility], and others.
Awaiting for determination.
D/C plan: preferred SNF for a short term rehab and possible termite control representative care.
--- NOTE | 2025-01-28 12:27 | W.PN.URO.CBU ---
Today's Communication / Plan
-
Continue daily wound packing changes
Sutures dissolvable
Outpatient follow up in 2-3 weeks for wound check
Assessment / Plan
-
Radames's gangrene
Severe necrotizing infection of penis, scrotum, pubic fat pad, extending to LLQ anterior pelvic wall
Breakdown of ventral bulbar urethra requiring closure
01/11/25: I&D, debridement, drainage of abscess
01/12/25: wound exploration, washout, debridement, dressing change, closure of tunica vaginalis
01/15/25: wound exploration, washout, debridement, dressing change, urethroplasty, partial wound closure, drain placement
Radames's gangrene
- Completed abx course per ID
- Large scrotal and penile wound was successfully fully closed
- Continue daily wound packing changes by nursing to the suprapubic and L inguinal incisions
- Clarice drains removed 01/23
- Some increased induration/edema inferior to L inguinal wound. No crepitus, erythema, tenderness, or collection. No evidence of recurrent infection in this region and is likely just edema
Urethral defect
- Ventral bulbar urethral defect discovered 01/15 which was debrided and repaired primarily over the swift catheter
- Maintain current swift to allow healing. Okay to change routinely on or after 02/19
b/l DVT
- Okay to continue anticoagulation
Outpatient follow up for wound check
Diagnosis
-
Date of Service: January 28, 2025
-
Patient Diagnosis:
Radames's gangrene
b/l DVT
Urethral avulsion
Post Op Day:
01/11/25: I&D, debridement, drainage of abscess
01/12/25: wound exploration, washout, debridement, dressing change, closure of tunica vaginalis
01/15/25: wound exploration, washout, debridement, dressing change, urethroplasty, partial wound closure, drain placement
Subjective
-
Doing well
Has decided against hospice
Objective
-
Vital Signs
Temp Pulse Resp BP Pulse Ox
97.6 F 69 16 137/53 96
01/28/25 07:09 01/28/25 10:36 01/28/25 07:09 01/28/25 10:36 01/28/25 07:09
Intake and Output
01/27/25 01/28/25 01/29/25
06:59 06:59 06:59
Intake Total 990 / 990 1780 / 1780
Output Total 1000 / 1000 875 / 875
Balance -10 / -10 905 / 905
Intake:
Oral fluids 990 / 990 1780 / 1780
Output:
Urine, Swift 1000 / 1000 875 / 875
Laboratory Results
01/27/25 06:22
01/28/25 06:36
Physical Exam
-
General - well developed, well nourished, no acute distress
Chest - clear
Abdomen - soft, non-tender
Scrotal and penile incisions well healing with sutures in place
Suprapubic and inguinal wounds c/d/i with packing in place
Granulating wound beds
--- NOTE | 2025-01-28 13:29 | W.PN.UPDATE ---
Update Note
Progress Note Update
Seen and examined the patient independently . Case discussed with resident. Agree with plan of care except changes in my documentation
On examination awake alert
Cardiovascular system S1-S2 appreciated
Chest clear to auscultation abdomen soft and nontender
Bilateral pedal edema noted
Perineum, Sutures intact, Packing left inguinal and supra pubic area
84-year-old with swelling in the penis and scrotal area with discoloration
01/09/25-USS- There are moderate bilateral hydroceles and marked swelling of the scrotal wall. The testicles themselves are unremarkable.
01/11/25-CT Pelvis-surrounding the penis and extending into the adjacent peritoneum there is an air-fluid density with thickened enhancing rim suggesting infection and abscess formation. Air density also extends superiorly extending into the left
anterior pelvic wall musculature and adjacent subcutaneous soft tissues. This could be suggestive of Radames's gangrene. Filling defect within the left common femoral vein with extension into the left femoral and profunda femoris veins likely
representing DVT. As warranted consideration for further evaluation with lower extremity peripheral ultrasound. Large amount of subcutaneous edema left greater than right. Significant scrotal wall thickening and edema especially inferiorly small
to moderate bilateral hydroceles.
Echo 01/14/2025-normal biventricular size and systolic function without regional wall motion abnormality. EF 64%. Mild TR with mildly elevated PA pressure 38 mmHg. Pleural effusion
# Radames's gangrene
01/11/25: I&D, debridement, drainage of abscess
01/12/25: wound exploration, washout, debridement, dressing change, closure of tunica vaginalis
01/15/25: wound exploration, washout, debridement, dressing change, urethroplasty, partial wound closure, drain placement
Urine cultures from 01/10/2024 with Enterococcus faecalis
Wound cultures with and Enterococcus raffinosus and staph
He was on vancomycin ,Zosyn. And clinda. At 1 point. Currently off of oral antibiotics as he completed the course.
Continue packing, Sutures dissolvable per Urology
# Septic shock secondary to above-resolved
# Anasarca-will try a dose of Lasix again now-40 mg ordered
# Bilateral lower extremity DVTs- Coumadin started with Lovenox
# Anemia-NOS status post 2 units of packed red blood cells
# Thrombocytosis-likely secondary to infection-resolved
# Lactic acidosis resolved
# Hyperglycemia Hemoglobin A1c 5.2
# Transaminitis-likely secondary to infection-better
# Seizures-patient currently on Depakote-therefore Dilantin was discontinued. He seems to be stable
# History of CVA-continue anticoagulation
# Hypertension-Hold amlodipine. Stopped especially with edema.
# Vitamin D deficiency-replace
# Hypothyroidism-Continue levothyroxine
# Hypoalbuminemia
# Mild protein calorie malnutrition-improved PO intake
# Bladder mass-status post TURBT at [facility] December 2024-Gillette catheter was placed at that time.
# DVT prophylaxis-Lovenox
# CODE STATUS- DNR per pt preference, son aware
Awaiting rehab to be set up.
D/W Urology today.
[2025-01-28 15:30] VITALS: BP 121/71
[2025-01-28] MEDS: DEPAKOTE (12 HR RELEASE) 250 MG PO (19:27)
[2025-01-28] MEDS: FLOMAX 0.4 MG PO (22:19)
[2025-01-28 23:15] VITALS: BP 125/57
[2025-01-29] MEDS: SYNTHROID 50 MCG PO (06:06)
[2025-01-29 07:22] VITALS: BP 132/60
[2025-01-29 08:05] LABS: Blood Urea Nitrogen 19 mg/dl (9-20); Calcium 8.1 mg/dl (8.4-10.2); Carbon Dioxide 32 mmol/L (22-30); Chloride 101 mmol/L (98-107); Estimated Creatinine Clearance 57 ml/min; Glucose 102 mg/dl (70-99); Potassium 4.7 mmol/L (3.5-5.1); Sodium 130 mmol/L (135-145); eGFR > 60.00
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
[2025-01-29] MEDS: VITAMIN D3 (cholecalciferol) 50 MCG PO (08:43)
[2025-01-29] MEDS: ELIQUIS 10 MG PO (08:43)
[2025-01-29] MEDS: DEPAKOTE (12 HR RELEASE) 500 MG PO (08:44)
[2025-01-29] MEDS: PROTONIX 40 MG PO (08:44)
--- NOTE | 2025-01-29 09:53 | CM ---
CM following re: discharge planning.
Reviewed pt's chart, met with pt and spoke to pt's son Daniel to update on discharge plan progress.
According to pt is medically stable to be discharged today. Both pt and his son are aware, expressed their agreement. IMM reviewed, placed on chart, pt has a copy.
[facility] approved pt for SNF level of care at [facility] for 5 initial days starting 01/28/25 till 02/01/25 with LCD and NRD 02/01/25. Auth: [id number].
aUTH INFORMATION FORWARDED TO [facility] snf BAD CREDIT COLLECTOR AND SHE COINFIRMED THAT PT IS ACCEPTED FOR ADMISSION TODAY AND 1:00 P.M. PICL
--- NOTE | 2025-01-29 09:57 | CM ---
CM following re: discharge planning.
Reviewed pt's chart, met with pt and spoke to pt's son Daniel to update on discharge plan progress.
According to pt is medically stable to be discharged today. Both pt and his son are aware, expressed their agreement. IMM reviewed, placed on chart, pt has a copy.
[facility] approved pt for SNF level of care at [facility] for 5 initial days starting 01/28/25 till 02/01/25 with LCD and NRD 02/01/25. Auth: [id number].
Auth information forwarded to [facility] SNF global account director and she confirmed that pt is accepted for admission today and 1:00 p.m. pickling operator time requested.
UC to arrange ambulance transport BLS with pickling operator time 1:00 p.m. PMNC completed and left with UC.
[facility] nursing report: [phone] or [phone]
Discharge instructions fax: [phone]
D/C plan: [facility]
[2025-01-29] MEDS: ATIVAN 0.5 MG PO (11:28)
--- NOTE | 2025-01-29 16:39 | W.DCSUMMARY ---
Discharge Summary
Discharge Data
Date of Admission: 01/11/25
Date of Discharge: 01/29/25
Total time spent discharging patient (in min): 55
-
Pending Results: Yes
Additional Pending Results:
Hospital Course
Daniel Reed is a 84-year-old male with a past medical history of chronic indwelling Gillette catheter, CKD, hypertension, hypothyroidism, seizure disorder (unknown type), hyperlipidemia, deep venous thrombosis who presented to the emergency
department after being found to have a swollen penis for 2 days. Upon evaluation in the emergency department the patient had a 1.5 inch area of necrotic tissue on the scrotum. In addition, the patient had developed septic shock and lactic acidosis
secondary to the Radames's gangrene.
During the course of his admission, the patient underwent debridement thrice, urethroplasty, and partial wound closure. He successfully completed antibiotic treatments with vancomycin and clindamycin. While wounds were initially drained using
Paisley drains, these drains were removed on 01/23. With regards to the reported areas, the patient remains with dressings in the suprapubic and left inguinal areas which need to be changed daily. Additionally, the patient has a chronic indwelling
Gillette catheter that needs to be changed on 02/19/2025.
During the course of his admission, CT of the pelvis conducted on 01/11/2025 showed a filling defect within the left common femoral vein with extension into the left femoral and deep femoral veins and subsequent venous ultrasound revealed deep venous
thrombosis in both lower extremities. The patient initially was started on a warfarin bridge to Lovenox, however this anticoagulation regimen was changed to Eliquis prior to discharge. In concordance with the AMPLIFY trial, Eliquis 10 mg twice
daily was initiated for a total of 7 days (ending on 02/04/2025) which should then be transition to Eliquis 5 mg twice daily indefinitely.
Although initially septic, even after treatment, patient remained somewhat in a state of altered sensorium. He had some episodes of agitation and expressed sadness and a desire to end his suffering at times during admission. Patient was seen by a
psychiatrist and his Dilantin regimen was changed to Depakote 500 mg in the a.m., 750 mg in the p.m. After this medication change, patient began to become more oriented and conversant and expressed that he wanted to continue to live and get better.
As his other medical issues began to resolve, plans were made to discharge to residential facility for additional rehabilitation.
DISCHARGE RECOMMENDATIONS
Wound Care
Daily change of dry gauze packing in midline suprapubic region and L inguinal wounds
Place gauze and dressings over closed scrotal wounds as needed for any drainage
Sutures are dissolvable
TESS Wrap daily up to the level of the knees bilaterally for anasarca
Indwelling Catheter
Gillette catheter to remain in place indefinitely
The catheter can be changed routinely on or after 02/19/25
Bedding
Air mattress
Turning schedule
Elevate heels off bed with pillow and air chair cushion.
Medication Changes
Dilantin changed to Depakote 500mg in AM, 750mg in PM
Get Depakote level in 3 days
CBC, CMP and Depakote levels every 3-6 months
Patient started on Eliquis 10mg twice a day through 02/04, followed by Eliquis 5 mg twice daily indefinitely thereafter
Amlodipine discontinued in the setting of soft blood pressures, to be re-evaluated by PCP
Follow Up
Follow up with primary care physician after discharge from residential facility
Follow up with urologist, Dr. March, in 2-3 weeks
Follow up results of bladder biopsy from [facility]
Discharge Plan
-
Patient Disposition: Retirement/SNF
Discharge Diagnosis/Procedures: Radames's Gangrene with Debridement x 3
Septic Shock
Anasarca
Bilateral Lower Extremity Deep Venous Thrombosis
Anemia
Thrombocytosis
Transaminitis
Seizure Disorder
History of CVA
Hypertension
Vitamin D deficiency
Hypothyroidism
Hypoalbuminemia
Mild protein calorie malnutrition
History of Bladder mass treated at [facility]
Condition: Fair
Diet: Other diet
Additional Diets: IDDSI 6 - Soft and Bite Sized
Activity: As tolerated
Driving Restrictions: No driving
Blood Work: CBC and BMP in 1 week
Depakote level 3 days
Monitor CBC, BMP, LFTs and Depakote level every 3-6 months.
Wound Care: Wound Care as Below.
Activity Restrictions/Additional Instructions:
Wound Care Instructions
Daily change of dry gauze packing in midline suprapubic region and L inguinal wounds
Place gauze and dressings over closed scrotal wounds as needed for any drainage
Sutures are dissolvable
Gillette catheter to remain in place indefinitely
The catheter can be changed routinely on or after 02/19/25
Follow up with urology in 2-3 weeks
[facility]: [phone]
Air mattress
Turning schedule
Elevate heels off bed with pillow and air chair cushion
pressure redistributing chair cushion (i.e. air chair cushion).
Obtain Pathology results from [facility] for bladder mass.
Follow up with wound in home caregiver or at wound care center call for an appointment.
Referrals:
Jass Goodman MD [Family Provider] - in one to two weeks
Alberto March MD [Active, Urology]
Referral Note: 2-3 weeks.
Additional Discharge Medication Instructions: Eliquis 10 mg BID for 11 more doses, then 5 Mg BID after that
Prescriptions:
New
divalproex 250 mg Tablet,Delayed Release (Dr/Ec)
250 mg PO DAILY@2000 Qty: 30 0RF
divalproex 500 mg Tablet,Delayed Release (Dr/Ec)
500 mg PO BID Qty: 30 0RF
lorazepam 0.5 mg Tablet
0.5 mg PO DAILYPRN PRN (Reason: agitation) Qty: 3 0RF
Eliquis 5 mg tablet
5 mg PO BID Qty: 22 0RF
Rx Instructions:
11 more doses of 10 mg BID
Eliquis 5 mg tablet
5 mg PO BID Qty: 60 0RF
Rx Instructions:
Start on 02/04/25 once 10 mg BID dose finished.
Continued
acetaminophen [Tylenol] 325 mg Tablet
650 mg PO Q6HPRN PRN (Reason: mild pain)
magnesium hydroxide [Milk of Magnesia] 400 mg/5 mL Suspension
2,400 mg PO DAILYPRN PRN (Reason: if no bm by 3rd day)
tamsulosin [Flomax] 0.4 mg Capsule
0.4 mg PO HS
levothyroxine [Synthroid] 50 mcg Tablet
50 mcg PO DAILY
bisacodyl [Dulcolax (bisacodyl)] 10 mg Suppository
10 mg NV DAILYPRN PRN (Reason: if no bm aftr mom)
ferrous sulfate 325 mg (65 mg iron) Tablet
325 mg PO DAILY
folic acid 1 mg Tablet
1 mg PO DAILY
Discontinued
aspirin 325 mg Tablet
325 mg PO DAILY
phenytoin sodium extended 100 mg Capsule
300 mg PO DAILY
amlodipine [Norvasc] 5 mg Tablet
5 mg PO DAILY
diphenhydramine HCl [Benadryl] 25 mg Capsule
25 mg PO TID
Rx Instructions:
for 3 days until 01/13/25
nitrofurantoin monohyd/m-cryst [Macrobid] 100 mg Capsule
100 mg PO BID
Rx Instructions:
for 7 days starting 01/12/25
Coumadin 5 mg
Q48H
Coumadin 2 mg
Q48H
Discharge Orders:
Discharge Patient (As Directed); Ordered 01/29/25
Ordered By: Selene Reagan
Discharge Date and Time
Discharge Date/Time: 01/29/25 13:15
Print Language: HEBREW
== END 2025-01-29 13:15 | DRG 853 ==
LOC: 2 NORTH 14:52
PROVIDERS: Nurse Practitioner Family; Radiology Diagnostic Radiology; ADMITTING PHYSICIAN Hospitalist; CONSULT PHYSICIAN Psychiatry & Neurology Psychiatry; CONSULT PHYSICIAN Student in an Organized Health Care Education/Training Program; CONSULT PHYSICIAN Urology; EMERGENCY PHYSICIAN Emergency Medicine; FAMILY PHYSICIAN Internal Medicine
PROC: 0V950ZZ Drainage of Scrotum, Open Approach (ICD-10-PCS; 2025-01-11)
PROC: 0VBS0ZZ Excision of Penis, Open Approach (ICD-10-PCS; 2025-01-11)
PROC: 0HB9XZZ Excision of Perineum Skin, External Approach (ICD-10-PCS; 2025-01-11)
PROC: 3E10X8Z Irrigation of Skin and Mucous Membranes using Irrigating Substance (ICD-10-PCS; 2025-01-12)
PROC: 0V9530Z Drainage of Scrotum with Drainage Device, Percutaneous Approach (ICD-10-PCS; 2025-01-12)
PROC: 0VQ5XZZ Repair Scrotum, External Approach (ICD-10-PCS; 2025-01-12)
PROC: 02HV33Z Insertion of Infusion Device into Superior Vena Cava, Percutaneous Approach (ICD-10-PCS; 2025-01-13)
PROC: 30233N1 Transfusion of Nonautologous Red Blood Cells into Peripheral Vein, Percutaneous Approach (ICD-10-PCS; 2025-01-13)
PROC: 0HBAXZZ Excision of Inguinal Skin, External Approach (ICD-10-PCS; 2025-01-16)
PROC: 0VU Male Reproductive System, Supplement (ICD-10-PCS; 2025-01-16)
PROC: 0TQD0ZZ Repair Urethra, Open Approach (ICD-10-PCS; 2025-01-16)
PROC: 0VB5XZZ Excision of Scrotum, External Approach (ICD-10-PCS; 2025-01-16)
DX: A41.9 Sepsis, unspecified organism (principal); G93.41 Metabolic encephalopathy; M72.6 Necrotizing fasciitis; R65.21 Severe sepsis with septic shock; I82.413 Acute embolism and thrombosis of femoral vein, bilateral; E87.20 Acidosis, unspecified; S37.39XA Other injury of urethra, initial encounter; J90 Pleural effusion, not elsewhere classified; N39.0 Urinary tract infection, site not specified; E87.1 Hypo-osmolality and hyponatremia; F05 Delirium due to known physiological condition; F03.93 Unspecified dementia, unspecified severity, with mood disturbance; F03.911 Unspecified dementia, unspecified severity, with agitation; E44.1 Mild protein-calorie malnutrition; Z51.5 Encounter for palliative care; N49.3 Fournier gangrene; N50.89 Other specified disorders of the male genital organs; E03.9 Hypothyroidism, unspecified; N18.31 Chronic kidney disease, stage 3a; D75.839 Thrombocytosis, unspecified; D63.8 Anemia in other chronic diseases classified elsewhere; R74.01 Elevation of levels of liver transaminase levels; F43.20 Adjustment disorder, unspecified; R73.9 Hyperglycemia, unspecified; N43.3 Hydrocele, unspecified; I12.9 Hypertensive chronic kidney disease with stage 1 through stage 4 chronic kidney disease, or unspecified chronic kidney disease; E83.51 Hypocalcemia; N48.6 Induration penis plastica; X58.XXXA Exposure to other specified factors, initial encounter; E78.5 Hyperlipidemia, unspecified; N32.9 Bladder disorder, unspecified; I49.3 Ventricular premature depolarization; I48.91 Unspecified atrial fibrillation; B95.2 Enterococcus as the cause of diseases classified elsewhere; N35.812 Other bulbous urethral stricture, male; R68.0 Hypothermia, not associated with low environmental temperature; E88.09 Other disorders of plasma-protein metabolism, not elsewhere classified; E87.6 Hypokalemia; G40.909 Epilepsy, unspecified, not intractable, without status epilepticus; Z66 Do not resuscitate; Z79.82 Long term (current) use of aspirin; Z79.84 Long term (current) use of oral hypoglycemic drugs; Z79.890 Hormone replacement therapy; Z63.8 Other specified problems related to primary support group; Z86.73 Personal history of transient ischemic attack (TIA), and cerebral infarction without residual deficits; Z78.1 Physical restraint status; Z68.26 Body mass index [BMI] 26.0-26.9, adult; Z74.01 Bed confinement status; Z79.899 Other long term (current) drug therapy
CPT/HCPCS: 71045; 72194; 80048; 80053; 80164; 80202; 81003; 81015; 82040; 82077; 82248; 82306; 82607; 82728; 82746; 82962; 83036; 83540; 83550; 83605; 83735; 83930; 83935; 84300; 84439; 84443; 85014; 85018; 85025; 85027; 85610; 85730; 86850; 86900; 86901; 86920; 87040; 87070; 87075; 87077; 87086; 87147; 87154; 87186; 87205; 93005; 93306; 93970; 96365; 96366; 96367; 97163; 97166; 97530; 99291; P9016; Q9967